=== PATIENT | female | born 1940 | race Hispanic/Latino ===

== ENCOUNTER 2017-10-08 13:29 | Inpatient (IN) | payer MEDICARE ==
[2017-10-08] MEDS ORDERED: Sodium Chloride 0.9% 500 ML IV STA (13:49)
[2017-10-08 14:20] LABS: VENOUS BLOOD GAS BASE EXCESS 6.9 mmol/L (0.0-2.0); VENOUS BLOOD GAS PCO2 49 mmHg (40-60); VENOUS BLOOD GAS PO2 14 mm/Hg (30-55); VENOUS BLOOD PH 7.43 (7.32-7.43)
--- NOTE | 2017-10-08 14:26 | ED PDOC ---
HPI: General Adult Time Seen by Provider: 10/08/17 13:42 Chief Complaint (Nursing): Altered Mental Status Chief Complaint (Provider): Fall/AMS History Per: EMS History/Exam Limitations: clinical condition, other (AMS) Onset/Duration Of Symptoms: Unknown Additional Complaint(s): Khushboo Yañez is a 77 year old female that was brought in by EMS after her neighbor found her on the floor of her home earlier today. It is unknown for how long the patient was on the floor for, but EMS states her neighbor estimated it to be about one day. Patient presents to ED covered in feces and urine, and is following some command; she is alert in the sense that she is responding to touch and pain, and moves all extremities at will, but patient is not explaining what happened because of altered mental status. Past Medical History Reviewed: Historical Data, Nursing Documentation, Vital Signs Vital Signs: Last Vital Signs Temp Pulse 115 H 10/08/17 13:34 Resp 16 10/08/17 13:34 BP 142/75 10/08/17 13:34 Pulse Ox 100 10/08/17 14:39 - Family History Family History: States: Unknown Family Hx - Immunization History Hx Tetanus Toxoid Vaccination: (cannot remember) - Home Medications Home Medications: Ambulatory Orders Medication Instructions Recorded Acetaminophen with Codeine 1 tab PO Q6H PRN #10 tab 08/22/16 [Tylenol with Codeine No. 3 300 mg-30 mg] - Allergies Allergies/Adverse Reactions: Allergies Allergy/AdvReac Type Severity Reaction Status Date / Time Unobtainable Allergy Verified 10/08/17 15:58 Review of Systems Review Of Systems: ROS cannot be obtained secondary to pt's inabilty to answer questions. Physical Exam - Reviewed Nursing Documentation Reviewed: Yes Vital Signs Reviewed: Yes - Physical Exam Appears: Positive for: Uncomfortable Head Exam: Positive for: ATRAUMATIC, NORMOCEPHALIC Skin: Positive for: Normal Color, Warm Eye Exam: Positive for: PERRL ENT: Negative for: Nasal Congestion Neck: Positive for: Supple, Trachea Midline. Negative for: Limited ROM, Pain On Movement Of Neck Cardiovascular/Chest: Positive for: Tachycardia (mild). Negative for: Murmur Respiratory: Positive for: Normal Breath Sounds. Negative for: Wheezing Gastrointestinal/Abdominal: Positive for: Soft. Negative for: Tenderness Back: Positive for: Normal Inspection Extremity: Positive for: Other (15 inch diameter stage 1 necrotic ulcer on right hip/buttock area, surrounded by erythema. Excoriation present to rectum area. Stage 1 ulcer also present to right lateral malleolus. ) Neurologic/Psych: Positive for: Motor/Sensory Deficits (moving all extremities on will). Negative for: Alert (Patient is awake but AMS.), Oriented, Facial Droop - Laboratory Results Result Diagrams: 10/08/17 14:18 10/08/17 14:18 Interpretation Of Abn Labs: 18 wbc, 50 bun, elevated lactate and cpk, urine wbc - ECG ECG: Positive for: Interpreted By Me, Viewed By Me ECG Rhythm: Positive for: Normal QRS, Sinus Tachycardia, Nonspecific Changes O2 Sat by Pulse Oximetry: 100 (RA) Pulse Ox Interpretation: Normal - Radiology X-Ray: Read By Radiologist X-Ray Interpretation: No Acute Disease - CT Scan/US ct Other Rad Studies (CT/US): Read By Radiologist Other Rad Interpretation: chronic, same as old - Progress ED Course And Treament: 1715: Stable. Alert. Spoke with Dr. Burns. Will admit tele. Dr. Brandt saw pt. and will consult. Spoke with ICU doctor Anne who saw pt. Does not want pt. in ICU. - Critical Care Total Time (In Min): 30 Documented Critical Care: Time excludes all time spent performint seperately billable procedures Medical Decision Making Medical Decision Making: Impression: AMS s/p fall Plan: * CT Head w/o contrast * CT C-Spine w/o contrast * Chest X-Ray * X-Ray Right Hip * EKG * VBG * Creatinine Phosphokinase * Troponin I * CBC * PTT * PT * Blood Culture * Urine Culture * Urinalysis * Farr Catheter * POC * NaCl 500 mLs at 500 mLs/hr * Reevaluation Scribe Attestation: Documented by Trisha Willard, acting as a scribe for Seven Beltre MD. Provider Scribe Attestation: All medical record entries made by the Scribe were at my direction and personally dictated by me. I have reviewed the chart and agree that the record accurately reflects my personal performance of the history, physical exam, medical decision making, and the department course for this patient. I have also personally directed, reviewed, and agree with the discharge instructions and disposition. Disposition - Clinical Impression Clinical Impression: Severe sepsis, UTI (urinary tract infection), Dehydration, Rhabdomyolysis, Ulcer, Cellulitis - Patient ED Disposition Is Patient to be Admitted: Yes - Disposition Disposition Time: 17:00 Condition: SERIOUS - Pt Status Changed To: Hospital Disposition Of: Inpatient - Admit Certification Admit to Inpatient:: After my assessment, the patient will require hospitalization for at least two midnights. This is because of the severity of symptoms shown, intensity of services needed, and/or the medical risk in this patient being treated as an outpatient. - POA Present On Arrival: Falls Or Trauma, Pressure Ulcer
[2017-10-08 14:31] LABS: BASO # 0.1 K/uL (0.0-0.2); BASO % 0.5 % (0.0-2.0); EOS % 0.1 % (0.0-4.0); HEMOGLOBIN 15.7 g/dL (12.0-16.0); LYMPH # 0.9 K/uL (1.0-4.3); LYMPH % 5.1 % (20.0-40.0); MEAN CELL VOLUME 92.6 fl (81.0-99.0); MEAN CORPUSCULAR HEMOGLOBIN 30.4 pg (27.0-31.0); MEAN CORPUSCULAR HGB CONC 32.9 g/dL (33.0-37.0); MEAN PLATELET VOLUME 9.2 fl (7.2-11.7); MONO # 1.5 K/uL (0.0-0.8); MONO % 8.2 % (0.0-10.0); NEUT # 15.7 K/uL (1.8-7.0); NEUT % 86.1 % (50.0-75.0); PLATELET COUNT 368 K/uL (130-400); RBC 5.17 Mil/uL (3.80-5.20); RED CELL DISTRIBUTION WIDTH 13.2 % (11.5-14.5); WHITE BLOOD COUNT 18.2 K/uL (4.8-10.8)
[2017-10-08 14:46] LABS: INR 1.1 (0.9-1.2); PARTIAL THROMBOPLASTIN TIME 29.8 Seconds (25.6-37.1); PROTHROMBIN TIME 12.4 Seconds (9.8-13.1)
[2017-10-08 15:05] LABS: ANISOCYTOSIS SLIGHT; BANDS 3 % (0-2); LYMPHOCYTE 5 % (20-50); MICROCYTOSIS SLIGHT; MONOCYTE 6 % (0-10); NEUTROPHIL 86 % (42-75); PLATELET ESTIMATE NORMAL (NORMAL); TOTAL CELLS COUNTED 100
[2017-10-08 15:06] LABS: LARGE PLATELETS PRESENT; OVALOCYTES SLIGHT; TEARDROP CELLS SLIGHT
--- NOTE | 2017-10-08 15:07 | CT ---
PROCEDURE: CT HEAD WITHOUT CONTRAST. HISTORY: Headache. COMPARISON: Comparison made with CT scan brain dated 08/22/2016. TECHNIQUE: Axial computed tomography images were obtained through the head/brain without intravenous contrast. Radiation dose: Total exam DLP = 891.4 mGy-cm. This CT exam was performed using one or more of the following dose reduction techniques: Automated exposure control, adjustment of the mA and/or kV according to patient size, and/or use of iterative reconstruction technique. FINDINGS: HEMORRHAGE: No acute parenchymal, subarachnoid or extra-axial hemorrhage. BRAIN: Moderate to fairly significant diffuse/ confluent chronic white matter ischemic changes are again seen extending peripherally into the deep and subcortical white matter both cerebral hemispheres. . Moderate to fairly significant central volume loss evidenced by slight disproportionate enlargement of the ventricles as compared the sulci. Mild vascular calcifications both carotid siphons VENTRICLES: No obstructive hydrocephalus. CALVARIUM: There are no acute calvarial fractures. PARANASAL SINUSES: Unremarkable as visualized. No significant inflammatory changes. MASTOID AIR CELLS: Sclerotic slightly underpneumatized right mastoid air complex compared to the left side. OTHER FINDINGS: None. IMPRESSION: No acute intracranial hemorrhage. Moderate to significant chronic white matter ischemic changes. Moderate to significant central volume loss.
[2017-10-08 15:14] LABS: ALB/GLOB RATIO 1.1 (1.0-2.1); BLOOD UREA NITROGEN 50 mg/dl (7-17); CALCIUM 10.9 mg/dL (8.4-10.2); GFR AFRICAN-AMERICAN > 60; GFR NON-AFRICAN AMERICAN > 60; URINE BACTERIA MANY (<OCC); URINE BILIRUBIN NEGATIVE (NEGATIVE); URINE BLOOD MODERATE (NEGATIVE); URINE CLARITY TURBID (Clear); URINE COLOR AMBER (YELLOW); URINE GLUCOSE (UA) NEG (Normal); URINE HYALINE CAST >20 /hpf (0-2); URINE LEUKOCYTE ESTERASE MOD Leu/uL (Negative); URINE NITRATE NEGATIVE (NEGATIVE); URINE PROTEIN 100 mg/dL (NEGATIVE)
[2017-10-08 15:15] LABS: ALT/SGPT 68 U/L (9-52); AST/SGOT 89 U/L (14-36)
--- NOTE | 2017-10-08 15:30 | CT ---
PROCEDURE: CT scan cervical spine dated 10/08/2017. HISTORY: Neck pain COMPARISON: None available. TECHNIQUE: Axial computed tomography images were obtained of the cervical spine without the use of intravenous contrast. Coronal and sagittal reformatted images were created and reviewed. Radiation dose: Total exam DLP = 310.43 mGy-cm. This CT exam was performed using one or more of the following dose reduction techniques: Automated exposure control, adjustment of the mA and/or kV according to patient size, and/or use of iterative reconstruction technique. FINDINGS: VERTEBRAE: No acute compression fractures no retropulsed fragments. Vertebral bodies exhibit normal stature and alignment. Facets normally aligned. . DISCS/SPINAL CANAL/NEURAL FORAMINA: Multilevel degenerative spondylosis. Changes include varying degrees of mild to significant disc space narrowing endplate eburnation with subchondral cystic changes and/or tiny Schmorl's nodes. Small broad-based disc ridge complexes are present at nearly every level and contiguous with hypertrophic uncovertebral joints most notably at the C5-C6 level bilaterally ; C6-C7 right greater than left ; to a lesser degree C4-C5 left greater than right ; and C3-C4 slightly more so on the left, where these changes result in foraminal stenosis indicated a above. There is also of fairly significant central canal stenosis at the C5-C6 and to a lesser degree C4-C5 and less so C6-C7 levels due to the aforementioned osteophytic ridge disc complexes. Consider followup MRI if further evaluation is required. PARASPINAL SOFT TISSUES: Unremarkable. OTHER FINDINGS: Lung apices clear. Note made of a small amount of air all within the right subclavian vein likely due to recent intravenous injection. Clinical correlation recommended IMPRESSION: No acute compression fractures no retropulsed fragments. Multilevel degenerative spondylosis with varying degrees of canal compromise and cord compression most notably affecting the C 5 C6 and to a lesser degree C4-C5 and C6-C7 levels. There are also variable on bilateral foraminal stenotic changes as detailed above. Consider followup MRI of the cervical spine if symptoms persist or neurologic deficit is present
--- NOTE | 2017-10-08 15:35 | RAD ---
HISTORY: dyspnea COMPARISON: No prior. FINDINGS: LUNGS: Mild bibasilar atelectasis or scarring. PLEURA: No significant pleural effusion identified, no pneumothorax apparent. CARDIOVASCULAR: Heart size within range of normal. Aorta ectatic and uncoiled. Prominent right and left main pulmonary arteries. OSSEOUS STRUCTURES: No significant abnormalities. VISUALIZED UPPER ABDOMEN: Normal. OTHER FINDINGS: None. IMPRESSION: Mild bibasilar atelectasis or scarring.
--- NOTE | 2017-10-08 15:45 | RAD ---
PROCEDURE: Right Hip Radiographs. HISTORY: necrosis area COMPARISON: None. FINDINGS: BONES: The pelvic ring is intact. There is no acute displaced fracture or bone destruction. Bone alignment is normal. There is diffuse bone demineralization. JOINTS: There is moderate degenerative osteoarthrosis in the right hip joint with severe reduced medial compartment joint space and marginal osteophytes. There is also mild degenerative osteoarthrosis in the left hip joint. SOFT TISSUES: Normal. OTHER FINDINGS: None. IMPRESSION: No acute displaced fracture or bone destruction. Please note occult fractures cannot be excluded on plain radiographs. If there is a persistent clinical concern, an MRI of the hip may be performed for further evaluation. Moderate degenerative osteoarthrosis in the right hip joint.
[2017-10-08] MEDS ORDERED: Sodium Chloride 0.9% 1,000 ML IV STA ×2 (16:07→18:04)
[2017-10-08] MEDS ORDERED: Ciprofloxacin 400mg/200ml D5W 400 MG/200 ML BAG IV STA (16:07)
[2017-10-08] MEDS ORDERED: Piperacillin/Tazobact 3.375 GM in Sodium Chloride 0.9% 100 ML IV STA (16:08)
[2017-10-08] MEDS ORDERED: Ciprofloxacin 400mg/200ml D5W 400 MG/200 ML BAG IVPB ONE (16:16)
--- NOTE | 2017-10-08 16:25 | CP.PCM.CON ---
History of Present Illness - History of Present Illness History of Present Illness: General surgery consult note for Dr. Migdalia Hall, PGY-1 Pt S & E at bedside. 77F w/PMH sig for hx fall in 2016 consulted for Right hip wound. Pt was brought into ED by EMS, found by neighbor on the floor of home on day of admission. Pt was down for unknow amount of time, estimation by neighbor is 1 day. Pt was covered in feces and urine upon admission to ED. Follows some commands and answering some simple questions, unable to obtain a history. ROS unobtainable due to AMS. PMH: Unobtainable/Unknown PSH: Unobtainable/Unknown All: Unobtainable/unknown SH: Unobtainable/unknown Review of Systems - Review of Systems Systems not reviewed;Unavailable: Altered Mental Status Past Patient History - Past Social History Smoking Status: Never Smoked - ENDOCRINE/METABOLIC Hx Diabetes Mellitus Type 2: Yes (pt thinks she may be) - PSYCHIATRIC Hx Substance Use: No Meds Allergies/Adverse Reactions: Allergies Allergy/AdvReac Type Severity Reaction Status Date / Time Unobtainable Allergy Verified 10/08/17 15:58 - Medications Medications: Current Medications Ciprofloxacin (Cipro 400mg/200ml Dsw) 400 mg in 200 mls @ 200 mls/hr IV STAT STA PRN Reason: Protocol Stop: 10/08/17 17:06 Sodium Chloride (Sodium Chloride 0.9%) 1,000 mls @ 1,000 mls/hr IV .Q1H STA Stop: 10/08/17 17:06 Vancomycin HCl 1,000 mg/ (Sodium Chloride) 250 mls @ 250 mls/hr IVPB STAT STA PRN Reason: Protocol Stop: 10/08/17 17:17 Piperacillin Sod/Tazobactam (Sod 3.375 gm/ Sodium Chloride) 100 mls @ 100 mls/ hr IV STAT STA PRN Reason: Protocol Stop: 10/08/17 17:07 Physical Exam - Constitutional Appears: Non-toxic, No Acute Distress, Confused - Head Exam Head Exam: ATRAUMATIC, NORMAL INSPECTION, NORMOCEPHALIC - Eye Exam Eye Exam: EOMI, Normal appearance - ENT Exam ENT Exam: Mucous Membranes Dry - Respiratory Exam Respiratory Exam: NORMAL BREATHING PATTERN - Cardiovascular Exam Cardiovascular Exam: Tachycardia, +S1, +S2 - GI/Abdominal Exam GI & Abdominal Exam: Soft. absent: Tenderness - Extremities Exam Extremities exam: Positive for: tenderness Additional comments: Large black eschar over lateral aspect of right hip with surrounding erythema, tender to palpation - Neurological Exam Additional comments: Altered mental status - Psychiatric Exam Additional comments: slow to answer questions, does not answer all questions - Skin Skin Exam: Dry, Intact, Normal Color, Warm Additional comments: see extremity exam for right hip skin findings Results - Vital Signs Recent Vital Signs: Last Vital Signs Temp Pulse 115 H 10/08/17 13:34 Resp 16 10/08/17 13:34 BP 142/75 10/08/17 13:34 Pulse Ox 100 10/08/17 14:39 - Labs Result Diagrams: 10/08/17 14:18 10/08/17 14:18 Labs: Laboratory Results - last 24 hr 10/08/17 10/08/17 10/08/17 14:10 14:14 14:18 WBC 18.2 H RBC 5.17 Hgb 15.7 Hct 47.9 H MCV 92.6 MCH 30.4 MCHC 32.9 L RDW 13.2 Plt Count 368 MPV 9.2 Neut % (Auto) 86.1 H Lymph % (Auto) 5.1 L Whitfield % (Auto) 8.2 Eos % (Auto) 0.1 Baso % (Auto) 0.5 Neut # 15.7 H Lymph # 0.9 L Whitfield # 1.5 H Eos # 0.0 Baso # 0.1 Neutrophils % (Manual) 86 H Band Neutrophils % 3 H Lymphocytes % (Manual) 5 L Monocytes % (Manual) 6 Platelet Estimate Normal Large Platelets Present Anisocytosis (manual) Slight Microcytosis (manual) Slight Tear Drop Cells Slight Ovalocytes Slight PT INR APTT pO2 14 L VBG pH 7.43 VBG pCO2 49 VBG HCO3 28.2 VBG Total CO2 34.0 H VBG O2 Sat (Calc) 24.6 L VBG Base Excess 6.9 H VBG Potassium 4.1 Sodium 142.0 Chloride 101.0 Glucose 157 H Lactate 2.5 H FiO2 21.0 Blood Gas Comments Lactate 2.5 Crit Value Called To tyra Lester Crit Value Called By 203 Crit Value Read Back Y Blood Gas Notified Time 1420 Potassium Carbon Dioxide Anion Gap BUN Creatinine Est GFR ( Amer) Est GFR (Non-Af Amer) POC Glucose (mg/dL) 91 Random Glucose Calcium Total Bilirubin AST ALT Alkaline Phosphatase Total Creatine Kinase Troponin I Total Protein Albumin Globulin Albumin/Globulin Ratio Venous Blood Potassium 4.1 Urine Color Urine Clarity Urine pH Ur Specific Bryant Urine Protein Urine Glucose (UA) Urine Ketones Urine Blood Urine Nitrate Urine Bilirubin Urine Urobilinogen Ur Leukocyte Esterase Urine RBC (Auto) Urine Microscopic WBC Urine Bacteria Hyaline Casts 10/08/17 10/08/17 10/08/17 14:18 14:18 14:18 WBC RBC Hgb Hct MCV MCH MCHC RDW Plt Count MPV Neut % (Auto) Lymph % (Auto) Whitfield % (Auto) Eos % (Auto) Baso % (Auto) Neut # Lymph # Whitfield # Eos # Baso # Neutrophils % (Manual) Band Neutrophils % Lymphocytes % (Manual) Monocytes % (Manual) Platelet Estimate Large Platelets Anisocytosis (manual) Microcytosis (manual) Tear Drop Cells Ovalocytes PT 12.4 INR 1.1 APTT 29.8 pO2 VBG pH VBG pCO2 VBG HCO3 VBG Total CO2 VBG O2 Sat (Calc) VBG Base Excess VBG Potassium Sodium 142 Chloride 102 Glucose Lactate FiO2 Blood Gas Comments Crit Value Called To Crit Value Called By Crit Value Read Back Blood Gas Notified Time Potassium 4.6 Carbon Dioxide 28 Anion Gap 17 BUN 50 H Creatinine 0.9 Est GFR ( Amer) > 60 Est GFR (Non-Af Amer) > 60 POC Glucose (mg/dL) Random Glucose 149 H Calcium 10.9 H Total Bilirubin 1.1 AST 89 H ALT 68 H Alkaline Phosphatase 105 Total Creatine Kinase 1327 H Troponin I 0.0220 Total Protein 7.5 Albumin 4.0 Globulin 3.6 Albumin/Globulin Ratio 1.1 Venous Blood Potassium Urine Color Elizabeth Urine Clarity Turbid Urine pH 5.0 Ur Specific Bryant 1.026 Urine Protein 100 Urine Glucose (UA) Neg Urine Ketones Trace Urine Blood Moderate Urine Nitrate Negative Urine Bilirubin Negative Urine Urobilinogen 2.0 H Ur Leukocyte Esterase Mod Urine RBC (Auto) 19 H Urine Microscopic WBC 32 H Urine Bacteria Many H Hyaline Casts >20 H Assessment & Plan - Assessment and Plan (Free Text) Assessment: 77F w/unknown PMH consulted for Right hip ulcer Plan: Pain mgmt Santyl to wound Will need to dry out before can be debrided Will follow Would recommend re-imaging due to pain DW attending Isabel, PGY-1 - Date & Time Date: 10/08/17 Time: 17:08
[2017-10-08 17:32] LABS: VENOUS BLOOD GAS PCO2 48 mmHg (40-60); VENOUS BLOOD GAS PO2 26 mm/Hg (30-55)
[2017-10-08] MEDS ORDERED: Piperacillin/Tazobact 3.375 gm Inj IVPB ONE (17:37)
--- NOTE | 2017-10-08 17:45 | CP.PCM.HP ---
History of Present Illness - History of Present Illness History of Present Illness: 77 yo female brought in by EMS after neighbor found her lying on the floor of her home covered with feces and urine. It was unknown how long she was in this state. Pt appeared confused and when asked she replied she didn't know what happened to her and how she got on the floor. Present on Admission - Present on Admission Any Indicators Present on Admission: No History of DVT/PE: No History of Uncontrolled Diabetes: No Urinary Catheter: Yes Decubitus Ulcer Present: Yes Review of Systems - Review of Systems Systems not reviewed;Unavailable: Altered Mental Status Past Patient History - Past Social History Smoking Status: Never Smoked - ENDOCRINE/METABOLIC Hx Diabetes Mellitus Type 2: Yes (pt thinks she may be) - PSYCHIATRIC Hx Substance Use: No Meds Allergies/Adverse Reactions: Allergies Allergy/AdvReac Type Severity Reaction Status Date / Time Unobtainable Allergy Verified 10/08/17 15:58 Physical Exam - Constitutional Appears: No Acute Distress, Confused - Head Exam Head Exam: ATRAUMATIC - Eye Exam Eye Exam: absent: Scleral icterus - ENT Exam ENT Exam: Mucous Membranes Dry - Neck Exam Neck exam: Negative for: Meningismus - Respiratory Exam Respiratory Exam: absent: Rhonchi, Wheezes, Respiratory Distress - Cardiovascular Exam Cardiovascular Exam: Tachycardia - GI/Abdominal Exam GI & Abdominal Exam: Soft. absent: Tenderness - Rectal Exam Rectal Exam: Deferred - Extremities Exam Extremities exam: Negative for: normal inspection (large black necrotic ulcer, about 10 inch, on right hip/buttock area; stage 1 ulcer on right lateral malleolus) - Back Exam Back exam: absent: tenderness - Neurological Exam Neurological exam: Altered Results - Vital Signs Recent Vital Signs: Last Vital Signs Temp Pulse 115 H 10/08/17 13:34 Resp 16 10/08/17 13:34 BP 142/75 10/08/17 13:34 Pulse Ox 100 10/08/17 17:19 - Labs Result Diagrams: 10/08/17 14:18 10/08/17 14:18 Labs: Laboratory Results - last 24 hr 10/08/17 10/08/17 10/08/17 14:10 14:14 14:18 WBC 18.2 H RBC 5.17 Hgb 15.7 Hct 47.9 H MCV 92.6 MCH 30.4 MCHC 32.9 L RDW 13.2 Plt Count 368 MPV 9.2 Neut % (Auto) 86.1 H Lymph % (Auto) 5.1 L Logan % (Auto) 8.2 Eos % (Auto) 0.1 Baso % (Auto) 0.5 Neut # 15.7 H Lymph # 0.9 L Logan # 1.5 H Eos # 0.0 Baso # 0.1 Neutrophils % (Manual) 86 H Band Neutrophils % 3 H Lymphocytes % (Manual) 5 L Monocytes % (Manual) 6 Platelet Estimate Normal Large Platelets Present Anisocytosis (manual) Slight Microcytosis (manual) Slight Tear Drop Cells Slight Ovalocytes Slight PT INR APTT pO2 14 L VBG pH 7.43 VBG pCO2 49 VBG HCO3 28.2 VBG Total CO2 34.0 H VBG O2 Sat (Calc) 24.6 L VBG Base Excess 6.9 H VBG Potassium 4.1 Sodium 142.0 Chloride 101.0 Glucose 157 H Lactate 2.5 H FiO2 21.0 Blood Gas Comments Lactate 2.5 Crit Value Called To tyra Lester Crit Value Called By 203 Crit Value Read Back Y Blood Gas Notified Time 1420 Potassium Carbon Dioxide Anion Gap BUN Creatinine Est GFR ( Amer) Est GFR (Non-Af Amer) POC Glucose (mg/dL) 91 Random Glucose Calcium Total Bilirubin AST ALT Alkaline Phosphatase Total Creatine Kinase Troponin I Total Protein Albumin Globulin Albumin/Globulin Ratio Venous Blood Potassium 4.1 Urine Color Urine Clarity Urine pH Ur Specific [place] Urine Protein Urine Glucose (UA) Urine Ketones Urine Blood Urine Nitrate Urine Bilirubin Urine Urobilinogen Ur Leukocyte Esterase Urine RBC (Auto) Urine Microscopic WBC Urine Bacteria Hyaline Casts 10/08/17 10/08/17 10/08/17 14:18 14:18 14:18 WBC RBC Hgb Hct MCV MCH MCHC RDW Plt Count MPV Neut % (Auto) Lymph % (Auto) Logan % (Auto) Eos % (Auto) Baso % (Auto) Neut # Lymph # Logan # Eos # Baso # Neutrophils % (Manual) Band Neutrophils % Lymphocytes % (Manual) Monocytes % (Manual) Platelet Estimate Large Platelets Anisocytosis (manual) Microcytosis (manual) Tear Drop Cells Ovalocytes PT 12.4 INR 1.1 APTT 29.8 pO2 VBG pH VBG pCO2 VBG HCO3 VBG Total CO2 VBG O2 Sat (Calc) VBG Base Excess VBG Potassium Sodium 142 Chloride 102 Glucose Lactate FiO2 Blood Gas Comments Crit Value Called To Crit Value Called By Crit Value Read Back Blood Gas Notified Time Potassium 4.6 Carbon Dioxide 28 Anion Gap 17 BUN 50 H Creatinine 0.9 Est GFR ( Amer) > 60 Est GFR (Non-Af Amer) > 60 POC Glucose (mg/dL) Random Glucose 149 H Calcium 10.9 H Total Bilirubin 1.1 AST 89 H ALT 68 H Alkaline Phosphatase 105 Total Creatine Kinase 1327 H Troponin I 0.0220 Total Protein 7.5 Albumin 4.0 Globulin 3.6 Albumin/Globulin Ratio 1.1 Venous Blood Potassium Urine Color Elizabeth Urine Clarity Turbid Urine pH 5.0 Ur Specific [place] 1.026 Urine Protein 100 Urine Glucose (UA) Neg Urine Ketones Trace Urine Blood Moderate Urine Nitrate Negative Urine Bilirubin Negative Urine Urobilinogen 2.0 H Ur Leukocyte Esterase Mod Urine RBC (Auto) 19 H Urine Microscopic WBC 32 H Urine Bacteria Many H Hyaline Casts >20 H 10/08/17 17:26 WBC RBC Hgb Hct MCV MCH MCHC RDW Plt Count MPV Neut % (Auto) Lymph % (Auto) Logan % (Auto) Eos % (Auto) Baso % (Auto) Neut # Lymph # Logan # Eos # Baso # Neutrophils % (Manual) Band Neutrophils % Lymphocytes % (Manual) Monocytes % (Manual) Platelet Estimate Large Platelets Anisocytosis (manual) Microcytosis (manual) Tear Drop Cells Ovalocytes PT INR APTT pO2 26 L VBG pH 7.40 VBG pCO2 48 VBG HCO3 26.7 VBG Total CO2 31.2 H VBG O2 Sat (Calc) 51.4 VBG Base Excess 4.0 H VBG Potassium 3.8 Sodium 142.0 Chloride 105.0 Glucose 154 H Lactate 2.7 H FiO2 21.0 Blood Gas Comments Lactate 2.7 Crit Value Called To tyra Lester Crit Value Called By 203 Crit Value Read Back Y Blood Gas Notified Time 1732 Potassium Carbon Dioxide Anion Gap BUN Creatinine Est GFR ( Amer) Est GFR (Non-Af Amer) POC Glucose (mg/dL) Random Glucose Calcium Total Bilirubin AST ALT Alkaline Phosphatase Total Creatine Kinase Troponin I Total Protein Albumin Globulin Albumin/Globulin Ratio Venous Blood Potassium 3.8 Urine Color Urine Clarity Urine pH Ur Specific [place] Urine Protein Urine Glucose (UA) Urine Ketones Urine Blood Urine Nitrate Urine Bilirubin Urine Urobilinogen Ur Leukocyte Esterase Urine RBC (Auto) Urine Microscopic WBC Urine Bacteria Hyaline Casts Assessment & Plan - Assessment and Plan (Free Text) Assessment: 77 yo female brought in by EMS after neighbor found her lying on the floor of her home covered with feces and urine. It was unknown how long she was in this state. Pt appeared confused and when asked she replied she didn't know what happened to her and how she got on the floor. 1. Sepsis blood culture surgical consult with Dr Brandt for possible debridement of necrotic ulcer on right hip/buttock continue Zosyn and Vanco monitor serum Lactate 2. Rhabdomyolysis continue IV hydration with NSS monitor serum CPK urinalysis 3. Altered Mental Status CT head: moderate chronic white matter ischemic changes neuro consult with Dr Sarah 4. DVT prophylaxis venodyne boots while in bed avoid anticoagulant because of history of possible head injury from fall
--- NOTE | 2017-10-08 20:19 | CT ---
EXAM: CT Pelvis Without Intravenous Contrast EXAM DATE/TIME: 10/08/2017 5:04 PM CLINICAL HISTORY: 77 years old, female; Injury or trauma; Fall; Initial encounter; Blunt trauma (contusions or hematomas); Right; Hip; Injury details: See phy. Doc. ; Additional info: Ulcer; R/O hip and buttox area FX TECHNIQUE: Axial computed tomography images of the pelvis without intravenous contrast. All CT scans at this facility use one or more dose reduction techniques, viz.: automated exposure control; ma/kV adjustment per patient size (including targeted exams where dose is matched to indication; i.e. head); or iterative reconstruction technique. Coronal and sagittal reformatted images were created and reviewed. COMPARISON: There are no prior studies for comparison. FINDINGS: Bones/joints: Bony structures are osteopenic. There degenerative changes. L4 vertebral body is incompletely imaged. L5 vertebral body is intact. There is L4-L5 and L5-S1 disc space disease with mild disc bulging. There is degenerative facet disease. There is age indeterminate deformity of the sacrum at the S3 level. No acute displaced sacral fractures are identified. No pelvic fractures are identified. There are no hip fractures. There are degenerative changes at both hips with joint space narrowing and osteophyte formation. Soft tissues: There is extensive bruising in the right buttock. Vasculature: There are vascular calcifications. Lymph nodes: There is no pathologic adenopathy. Bowel: There is a nonobstructive gas pattern in the pelvis. There is scattered diverticulosis Bladder: Bladder is almost empty with a Farr catheter. Reproductive: Uterus and adnexal structures are unremarkable. IMPRESSION: Soft tissue bruising in the right buttock, osteopenia and degenerative change, no acute fracture seen
--- NOTE | 2017-10-08 21:56 | CP.PCM.PN ---
Subjective - Date & Time of Evaluation Date of Evaluation: 10/08/17 Time of Evaluation: 21:52 - Subjective Subjective: I D NOTE HAVE REVIEWED LABS AND DISCUSSED c HOSPITALIST() START RX c CLINDAMYCIN/VANCOMYCIN/CIPRO Objective - Vital Signs/Intake and Output Vital Signs (last 24 hours): Temp Pulse Resp BP Pulse Ox 99.3 F 105 H 18 105/71 98 10/08/17 18:18 10/08/17 21:41 10/08/17 21:41 10/08/17 21:41 10/08/17 21:19 - Medications Medications: Current Medications Collagenase (Santyl) 1 applic TOP DAILY [facility] Docusate Sodium (Colace) 100 mg PO BID [facility] Ciprofloxacin (Cipro 400mg/200ml Dsw) 400 mg in 200 mls @ 200 mls/hr IVPB Q12 [facility] PRN Reason: Protocol Vancomycin HCl 1 gm/ Sodium (Chloride) 250 mls @ 166.667 mls/hr IVPB Q12 [facility] PRN Reason: Protocol Clindamycin Phosphate (Cleocin In Normal Saline) 600 mg in 50 mls @ 50 mls/hr IVPB Q8 [facility] PRN Reason: Protocol Pantoprazole Sodium (Protonix Ec Tab) 40 mg PO DAILY [facility] - Labs Labs: 10/08/17 14:18 10/08/17 14:18 PT 12.4 Seconds (9.8-13.1) 10/08/17 14:18 INR 1.1 (0.9-1.2) 10/08/17 14:18 APTT 29.8 Seconds (25.6-37.1) 10/08/17 14:18
[2017-10-09] MEDS: Ciprofloxacin 400mg/200ml D5W 400 MG/200 ML BAG IVPB SCH ×3 (00:17→23:40)
[2017-10-09] MEDS: Clindamycin 600mg/50ml NS 600 MG/50 ML BAG IVPB SCH ×3 (01:05→16:57)
[2017-10-09] MEDS ORDERED: Sodium Chloride 0.9% 1,000 ML IV SCH (01:15)
[2017-10-09 06:13] LABS: BASO # 0.1 K/uL (0.0-0.2); BASO % 0.5 % (0.0-2.0); EOS % 0.2 % (0.0-4.0); HEMOGLOBIN 13.3 g/dL (12.0-16.0); LYMPH % 6.9 % (20.0-40.0); MEAN CELL VOLUME 92.8 fl (81.0-99.0); MEAN CORPUSCULAR HEMOGLOBIN 30.2 pg (27.0-31.0); MEAN CORPUSCULAR HGB CONC 32.5 g/dL (33.0-37.0); MONO # 1.7 K/uL (0.0-0.8); MONO % 11.9 % (0.0-10.0); NEUT # 11.8 K/uL (1.8-7.0); NEUT % 80.5 % (50.0-75.0); NRBC % 0.1 % (0.0-0.0); RBC 4.42 Mil/uL (3.80-5.20); RED CELL DISTRIBUTION WIDTH 13.5 % (11.5-14.5); WHITE BLOOD COUNT 14.6 K/uL (4.8-10.8)
[2017-10-09 06:21] LABS: BLOOD UREA NITROGEN 46 mg/dl (7-17); CALCIUM 10.1 mg/dL (8.4-10.2); GFR AFRICAN-AMERICAN > 60; GFR NON-AFRICAN AMERICAN > 60
[2017-10-09] MEDS: Santyl Collagenase OINTMENT TOP SCH (10:39)
[2017-10-09 11:44] VITALS: BMI 24.9
--- NOTE | 2017-10-09 12:44 | CP.PCM.PN ---
Subjective - Date & Time of Evaluation Date of Evaluation: 10/09/17 Time of Evaluation: 12:44 - Subjective Subjective: Gen Surg: Dr Brandt Pt S&E. NAEO. Condition remains unchanged. Responds to simple questioning Objective - Vital Signs/Intake and Output Vital Signs (last 24 hours): Temp Pulse Resp BP Pulse Ox 98.8 F 106 H 18 118/80 100 10/09/17 08:07 10/09/17 09:00 10/09/17 08:07 10/09/17 08:07 10/09/17 08:07 - Medications Medications: Current Medications Collagenase (Santyl) 1 applic TOP DAILY [facility] Last Admin: 10/09/17 10:39 Dose: 1 applic Docusate Sodium (Colace) 100 mg PO BID [facility] Last Admin: 10/09/17 09:40 Dose: Not Given Enoxaparin Sodium (Lovenox) 40 mg SC DAILY [facility] PRN Reason: Protocol Ciprofloxacin (Cipro 400mg/200ml Dsw) 400 mg in 200 mls @ 200 mls/hr IVPB Q12 [facility] PRN Reason: Protocol Last Admin: 10/09/17 11:20 Dose: 200 mls/hr Vancomycin HCl 1 gm/ Sodium (Chloride) 250 mls @ 166.667 mls/hr IVPB Q12 [facility] PRN Reason: Protocol Last Admin: 10/08/17 22:13 Dose: Not Given Clindamycin Phosphate (Cleocin In Normal Saline) 600 mg in 50 mls @ 50 mls/hr IVPB Q8 [facility] PRN Reason: Protocol Last Admin: 10/09/17 09:38 Dose: 50 mls/hr Pantoprazole Sodium (Protonix Ec Tab) 40 mg PO DAILY [facility] - Labs Labs: 10/09/17 04:30 10/09/17 04:30 PT 12.4 Seconds (9.8-13.1) 10/08/17 14:18 INR 1.1 (0.9-1.2) 10/08/17 14:18 APTT 29.8 Seconds (25.6-37.1) 10/08/17 14:18 - Constitutional Appears: Non-toxic - ENT Exam ENT Exam: Mucous Membranes Moist - Respiratory Exam Respiratory Exam: absent: Accessory Muscle Use, Respiratory Distress - GI/Abdominal Exam GI & Abdominal Exam: Soft. absent: Distended - Extremities Exam Additional comments: Large black eschar over lateral aspect of right hip with surrounding erythema, tender to palpation - Neurological Exam Neurological Exam: Awake. absent: Oriented x3 Assessment and Plan - Assessment and Plan (Free Text) Assessment: 77F w/unknown PMH consulted for Right hip ulcer Plan: Continue Santyl to wound: Will need to dry out before can be debrided Will follow DW attending Antonia, PGY3
--- NOTE | 2017-10-09 12:49 | CARD ---
APPROVED REPORT EKG Measurement Heart [id number] ID [id number] <Conclusion> Sinus tachycardia Possible Left atrial enlargement Nonspecific ST abnormality Abnormal QRS-T angle, consider primary T wave abnormality Abnormal ECG
[2017-10-09] MEDS: Enoxaparin 40 mg Syringe SC SCH (13:18)
--- NOTE | 2017-10-09 15:57 | CP.PCM.CON ---
History of Present Illness - History of Present Illness History of Present Illness: Neurology Consult Note Mrs. Yañez is a 77-year-old woman who was brought in to the ED by EMS after her neighbor called when he found her on the floor of her home, confused, weak and covered in urine and feces. The patient continues to be encephalopathic. Her neighbor provided some history and believed that she was on the ground for at least 24 hours. Labs showed leukocytosis and elevated CK levels. She had an ulcer on her hip. When I saw the patient, she was aphasic, but moves all extremities. She followed simple commands, but did not offer much conversation. I attempted to call her brother, Dr. Kolton Wu, but the number that was provided was a non-working number. Review of Systems - Review of Systems Systems not reviewed;Unavailable: Altered Mental Status Past Patient History - Past Medical History & Family History Past Medical History?: No - Past Social History Smoking Status: unobtainab - ENDOCRINE/METABOLIC Hx Diabetes Mellitus Type 2: Yes (pt thinks she may be) - MUSCULOSKELETAL/RHEUMATOLOGICAL Hx Falls: Yes - PSYCHIATRIC Hx Substance Use: (unobtainable, pt lethargic) - SURGICAL HISTORY Hx Surgeries: No (unobtainable, pt lethargic) Meds Allergies/Adverse Reactions: Allergies Allergy/AdvReac Type Severity Reaction Status Date / Time Unobtainable Allergy Verified 10/08/17 15:58 - Medications Medications: Current Medications Collagenase (Santyl) 1 applic TOP DAILY [facility] Last Admin: 10/09/17 10:39 Dose: 1 applic Docusate Sodium (Colace) 100 mg PO BID [facility] Last Admin: 10/09/17 09:40 Dose: Not Given Enoxaparin Sodium (Lovenox) 40 mg SC DAILY [facility] PRN Reason: Protocol Last Admin: 10/09/17 13:18 Dose: 40 mg Ciprofloxacin (Cipro 400mg/200ml Dsw) 400 mg in 200 mls @ 200 mls/hr IVPB Q12 [facility] PRN Reason: Protocol Last Admin: 10/09/17 11:20 Dose: 200 mls/hr Vancomycin HCl 1 gm/ Sodium (Chloride) 250 mls @ 166.667 mls/hr IVPB Q12 [facility] PRN Reason: Protocol Last Admin: 10/09/17 13:17 Dose: 166.667 mls/hr Clindamycin Phosphate (Cleocin In Normal Saline) 600 mg in 50 mls @ 50 mls/hr IVPB Q8 [facility] PRN Reason: Protocol Last Admin: 10/09/17 09:38 Dose: 50 mls/hr Pantoprazole Sodium (Protonix Ec Tab) 40 mg PO DAILY [facility] Physical Exam - Neurological Exam Additional comments: Alert, awake, but not oriented to place or time. CN 2-12 intact and reactive. Does not provide answers verbally, but follows simple commands and moves all extremities with generalized weakness. Sensation is intact to painful stimulus with withdrawal throughout. Reflexes were normal. Gait could not be assessed. Results - Vital Signs Recent Vital Signs: Last Vital Signs Temp 98.2 F 10/09/17 12:52 Pulse 109 H 10/09/17 12:52 Resp 18 10/09/17 12:52 BP 92/63 L 10/09/17 12:52 Pulse Ox 97 10/09/17 12:52 - Labs Result Diagrams: 10/09/17 04:30 10/09/17 04:30 Labs: Laboratory Results - last 24 hr 10/08/17 10/09/17 10/09/17 17:26 04:30 04:30 WBC 14.6 H RBC 4.42 Hgb 13.3 D Hct 41.0 MCV 92.8 MCH 30.2 MCHC 32.5 L RDW 13.5 Plt Count 291 MPV 9.0 Neut % (Auto) 80.5 H Lymph % (Auto) 6.9 L [place] % (Auto) 11.9 H Eos % (Auto) 0.2 Baso % (Auto) 0.5 Neut # 11.8 H Lymph # 1.0 [place] # 1.7 H Eos # 0.0 Baso # 0.1 pO2 26 L VBG pH 7.40 VBG pCO2 48 VBG HCO3 26.7 VBG Total CO2 31.2 H VBG O2 Sat (Calc) 51.4 VBG Base Excess 4.0 H VBG Potassium 3.8 Sodium 142.0 146 Chloride 105.0 109 H Glucose 154 H Lactate 2.7 H FiO2 21.0 Blood Gas Comments Lactate 2.7 Crit Value Called To tyra Lester Crit Value Called By 203 Crit Value Read Back Y Blood Gas Notified Time 1732 Potassium 3.9 Carbon Dioxide 27 Anion Gap 14 BUN 46 H Creatinine 0.9 Est GFR ( Amer) > 60 Est GFR (Non-Af Amer) > 60 Random Glucose 133 H Lactic Acid Calcium 10.1 Total Creatine Kinase TSH 3rd Generation 2.41 Venous Blood Potassium 3.8 10/09/17 10/09/17 12:35 12:49 WBC RBC Hgb Hct MCV MCH MCHC RDW Plt Count MPV Neut % (Auto) Lymph % (Auto) [place] % (Auto) Eos % (Auto) Baso % (Auto) Neut # Lymph # [place] # Eos # Baso # pO2 VBG pH VBG pCO2 VBG HCO3 VBG Total CO2 VBG O2 Sat (Calc) VBG Base Excess VBG Potassium Sodium Chloride Glucose Lactate FiO2 Blood Gas Comments Crit Value Called To Crit Value Called By Crit Value Read Back Blood Gas Notified Time Potassium Carbon Dioxide Anion Gap BUN Creatinine Est GFR ( Amer) Est GFR (Non-Af Amer) Random Glucose Lactic Acid 1.5 Calcium Total Creatine Kinase 335 H TSH 3rd Generation Venous Blood Potassium - Imaging and Cardiology CT scan - head Status: Image reviewed by me, Report reviewed by me (Diffuse moderate to chronic white matter disease.) Assessment & Plan (1) Toxic metabolic encephalopathy Assessment and Plan: Likely due to sepsis and associated metabolic derangements; however, ischemic stroke, seizures or septic emboli cannot be ruled out. I recommend the followin. Telemetry 2. MRI of the brain without contrast 3. EEG awake and drowsy for one hour 4. Continue treating underlying infection 5. PT/OT eval 6. NPO till swallow eval 7. DVT Px with SCD 8. Fluids per primary team 9. Case management consult Thank you. Status: Acute Priority: High
[2017-10-09] MEDS: Pantoprazole 40 mg EC Tab PO SCH (16:58)
--- NOTE | 2017-10-09 19:20 | CP.PCM.PN ---
Subjective - Date & Time of Evaluation Date of Evaluation: 10/09/17 Time of Evaluation: 19:18 - Subjective Subjective: I D NOTE PATIENT CONTINUES TO BE CONFUSED/APHASIC WBC HAS IMPROVED BUT IS STILL HIGH HAVE D/MARIBEL VANCOMYCIN,REPLACED c ZOSYN HAS GRAM NEG RODS IN URINE,AWAITING ID CONTINUE CLINDAMYCIN/CIPRO WE AWAIT CULTURE RESULTS Objective - Vital Signs/Intake and Output Vital Signs (last 24 hours): Temp Pulse Resp BP Pulse Ox 97.8 F 118 H 20 126/70 98 10/09/17 19:06 10/09/17 19:06 10/09/17 19:06 10/09/17 19:06 10/09/17 19:06 Intake and Output: 10/09/17 10/10/17 18:59 06:59 Intake Total 1670 Output Total 300 Balance 1370 - Medications Medications: Current Medications Collagenase (Santyl) 1 applic TOP DAILY [facility] Last Admin: 10/09/17 10:39 Dose: 1 applic Dimethicone (Proshield Plus Skin Protectant) 1 applic TOP Q8 [facility] Docusate Sodium (Colace) 100 mg PO BID [facility] Last Admin: 10/09/17 09:40 Dose: Not Given Enoxaparin Sodium (Lovenox) 40 mg SC DAILY [facility] PRN Reason: Protocol Last Admin: 10/09/17 13:18 Dose: 40 mg Ciprofloxacin (Cipro 400mg/200ml Dsw) 400 mg in 200 mls @ 200 mls/hr IVPB Q12 [facility] PRN Reason: Protocol Last Admin: 10/09/17 11:20 Dose: 200 mls/hr Clindamycin Phosphate (Cleocin In Normal Saline) 600 mg in 50 mls @ 50 mls/hr IVPB Q8 [facility] PRN Reason: Protocol Last Admin: 10/09/17 16:57 Dose: 50 mls/hr Piperacillin Sod/Tazobactam (Sod 3.375 gm/ Sodium Chloride) 100 mls @ 100 mls/ hr IVPB Q8H [facility] PRN Reason: Protocol Pantoprazole Sodium (Protonix Ec Tab) 40 mg PO DAILY [facility] Last Admin: 10/09/17 16:58 Dose: 40 mg - Labs Labs: 10/09/17 04:30 10/09/17 04:30 PT 12.4 Seconds (9.8-13.1) 10/08/17 14:18 INR 1.1 (0.9-1.2) 10/08/17 14:18 APTT 29.8 Seconds (25.6-37.1) 10/08/17 14:18
[2017-10-09] MEDS: Piperacillin/Tazobact 3.375 GM in Sodium Chloride 0.9% 100 ML IVPB SCH (23:39)
[2017-10-10] MEDS: Proshield Plus GEL TOP SCH ×3 (02:12→17:36)
[2017-10-10] MEDS: Clindamycin 600mg/50ml NS 600 MG/50 ML BAG IVPB SCH ×3 (02:12→17:34)
[2017-10-10] MEDS: Piperacillin/Tazobact 3.375 GM in Sodium Chloride 0.9% 100 ML IVPB SCH ×2 (02:44→15:49)
--- NOTE | 2017-10-10 08:32 | CP.PCM.PN ---
Subjective - Date & Time of Evaluation Date of Evaluation: 10/10/17 Time of Evaluation: 07:00 - Subjective Subjective: General surgery progress note for Dr. Migdalia Hall, PGY-1 Pt S & E at bedside. Pt responding to some simple questions. Denies pain, N & V, F & C. Objective - Vital Signs/Intake and Output Vital Signs (last 24 hours): Temp Pulse Resp BP Pulse Ox 100.5 F H 96 H 20 118/72 98 10/10/17 08:19 10/10/17 08:19 10/10/17 08:19 10/10/17 08:19 10/10/17 08:19 Intake and Output: 10/10/17 10/10/17 06:59 18:59 Intake Total 520 Output Total 450 Balance 70 - Medications Medications: Current Medications Collagenase (Santyl) [address] [facility] Last Admin: 10/09/17 10:39 Dose: 1 applic Dimethicone (Proshield Plus Skin Protectant) [address] [facility] Last Admin: 10/10/17 02:12 Dose: 1 applic Docusate Sodium (Colace) [address] [facility] Last Admin: 10/09/17 19:21 Dose: Not Given Enoxaparin Sodium (Lovenox) 40 mg SC DAILY [facility] PRN Reason: Protocol Last Admin: 10/09/17 13:18 Dose: 40 mg Ciprofloxacin (Cipro 400mg/200ml Dsw) 400 mg in 200 mls @ 200 mls/hr IVPB Q12 [facility] PRN Reason: Protocol Last Admin: 10/09/17 23:40 Dose: 200 mls/hr Clindamycin Phosphate (Cleocin In Normal Saline) 600 mg in 50 mls @ 50 mls/hr IVPB Q8 [facility] PRN Reason: Protocol Last Admin: 10/10/17 02:12 Dose: 50 mls/hr Piperacillin Sod/Tazobactam (Sod 3.375 gm/ Sodium Chloride) 100 mls @ 100 mls/ hr IVPB Q8H [facility] PRN Reason: Protocol Last Admin: 10/10/17 02:44 Dose: 100 mls/hr Pantoprazole Sodium (Protonix Ec Tab) [address] [facility] Last Admin: 10/09/17 16:58 Dose: 40 mg - Labs Labs: 10/09/17 04:30 10/09/17 04:30 PT 12.4 Seconds (9.8-13.1) 10/08/17 14:18 INR 1.1 (0.9-1.2) 10/08/17 14:18 APTT 29.8 Seconds (25.6-37.1) 10/08/17 14:18 - Constitutional Appears: Non-toxic, No Acute Distress, Older Than Stated Age - Head Exam Head Exam: ATRAUMATIC, NORMAL INSPECTION, NORMOCEPHALIC - Eye Exam Eye Exam: EOMI, Normal appearance - ENT Exam ENT Exam: Mucous Membranes Moist, Normal Exam - Neck Exam Neck Exam: Full ROM, Normal Inspection - Respiratory Exam Respiratory Exam: NORMAL BREATHING PATTERN - Cardiovascular Exam Cardiovascular Exam: REGULAR RHYTHM, +S1, +S2 - GI/Abdominal Exam GI & Abdominal Exam: Soft. absent: Tenderness - Extremities Exam Extremities Exam: absent: Normal Inspection (Right hip with large eschar with dressing in place, minimal serosanguinous strike through, margins with erythema , non tender) - Neurological Exam Neurological Exam: Alert, Awake. absent: Oriented x3 - Psychiatric Exam Psychiatric exam: Normal Affect, Normal Mood (slow speech) - Skin Skin Exam: Dry, Normal Color, Warm. absent: Intact (see extremity exam for R hip findings) Assessment and Plan - Assessment and Plan (Free Text) Assessment: 77F w/unknow PMH with R hip ulcer Plan: Cont Santyl to wound Will monitor for possible debridement Will Follow Further mgmt as per primary team Will BHAVIK attending Isabel, PGY-1
[2017-10-10] MEDS: Enoxaparin 40 mg Syringe SC SCH (09:38)
[2017-10-10] MEDS: Santyl Collagenase OINTMENT TOP SCH (09:39)
[2017-10-10] MEDS: Pantoprazole 40 mg EC Tab PO SCH (09:39)
[2017-10-10 10:05] LABS: HEMOGLOBIN 13.7 g/dL (12.0-16.0); MEAN CELL VOLUME 94.5 fl (81.0-99.0); MEAN CORPUSCULAR HEMOGLOBIN 30.1 pg (27.0-31.0); MEAN CORPUSCULAR HGB CONC 31.8 g/dL (33.0-37.0); RBC 4.54 Mil/uL (3.80-5.20); RED CELL DISTRIBUTION WIDTH 13.5 % (11.5-14.5); WHITE BLOOD COUNT 13.9 K/uL (4.8-10.8)
[2017-10-10 10:29] LABS: BLOOD UREA NITROGEN 41 mg/dl (7-17); GFR AFRICAN-AMERICAN > 60; GFR NON-AFRICAN AMERICAN > 60
[2017-10-10 13:02] LABS: SQUAMOUS EPITHIAL 1 /hpf (0-5); URINE BACTERIA OCC (<OCC); URINE BILIRUBIN NEGATIVE (NEGATIVE); URINE BLOOD NEGATIVE (NEGATIVE); URINE CLARITY CLOUDY (Clear); URINE COLOR YELLOW (YELLOW); URINE GLUCOSE (UA) NEG (Normal); URINE LEUKOCYTE ESTERASE LARGE Leu/uL (Negative); URINE NITRATE NEGATIVE (NEGATIVE); URINE PROTEIN 30 mg/dL (NEGATIVE); URINE UROBILINOGEN 0.2-1.0 mg/dL (0.2-1.0)
--- NOTE | 2017-10-10 17:00 | CP.PCM.PN ---
Subjective - Date & Time of Evaluation Date of Evaluation: 10/10/17 Time of Evaluation: 09:30 - Subjective Subjective: Patient seen and examined at bedside with attending-Dr. Fox. Awake, alert, minimal verbal response when prompted. Follows minimal command to squeeze hands. Objective - Vital Signs/Intake and Output Vital Signs (last 24 hours): Temp Pulse Resp BP Pulse Ox 98.6 F 109 H 20 122/81 94 L 10/10/17 15:57 10/10/17 15:57 10/10/17 15:57 10/10/17 15:57 10/10/17 15:57 Intake and Output: 10/10/17 10/10/17 06:59 18:59 Intake Total 520 Output Total 450 Balance 70 - Medications Medications: Current Medications Collagenase (Santyl) 1 applic TOP DAILY [facility] Last Admin: 10/10/17 09:39 Dose: 1 applic Dimethicone (Proshield Plus Skin Protectant) 1 applic TOP Q8 [facility] Last Admin: 10/10/17 09:38 Dose: 1 applic Docusate Sodium (Colace) 100 mg PO BID [facility] Last Admin: 10/10/17 09:38 Dose: 100 mg Enoxaparin Sodium (Lovenox) 40 mg SC DAILY [facility] PRN Reason: Protocol Last Admin: 10/10/17 09:38 Dose: 40 mg Clindamycin Phosphate (Cleocin In Normal Saline) 600 mg in 50 mls @ 50 mls/hr IVPB Q8 [facility] PRN Reason: Protocol Last Admin: 10/10/17 09:37 Dose: 50 mls/hr Piperacillin Sod/Tazobactam (Sod 3.375 gm/ Sodium Chloride) 50 mls @ 50 mls/hr IVPB Q8H [facility] PRN Reason: Protocol Sodium Chloride (Sodium Chloride 0.9%) 1,000 mls @ 100 mls/hr IV .Q10H [facility] Stop: 10/11/17 12:59 Pantoprazole Sodium (Protonix Ec Tab) 40 mg PO DAILY [facility] Last Admin: 10/10/17 09:39 Dose: 40 mg - Labs Labs: 10/10/17 09:25 10/10/17 09:25 PT 12.4 Seconds (9.8-13.1) 10/08/17 14:18 INR 1.1 (0.9-1.2) 10/08/17 14:18 APTT 29.8 Seconds (25.6-37.1) 10/08/17 14:18 - Constitutional Appears: Unkempt, Confused, Cachectic, Chronically Ill - Head Exam Head Exam: ATRAUMATIC, NORMOCEPHALIC - ENT Exam ENT Exam: Mucous Membranes Moist - Neck Exam Neck Exam: Full ROM - Respiratory Exam Respiratory Exam: NORMAL BREATHING PATTERN - Cardiovascular Exam Cardiovascular Exam: REGULAR RHYTHM, +S1, +S2 - GI/Abdominal Exam GI & Abdominal Exam: Soft, Normal Bowel Sounds. absent: Tenderness - Extremities Exam Extremities Exam: Pedal Edema (trace bilaterally). absent: Calf Tenderness Additional comments: bilateral toenails with excessive length and soiled - Neurological Exam Neurological Exam: Alert, Awake - Psychiatric Exam Psychiatric exam: Flat Affect - Skin Skin Exam: Dry, Normal Color, Warm Assessment and Plan - Assessment and Plan (Free Text) Assessment: 77 yr old F admitted for sepsis and altered mental status. -fall precautions -continue IV antibiotics, IV fluids -ID on board-will follow recommendations, IV antibiotics have been adjusted -Blood culture positive for gram positive cocci -urine culture positive for gram negative rods > 100,000 -Neurology on board-will follow recommendations: MRI brain w/o contrast, EEG awake and drowsy x 1 hr, PT/OT -DVT prophylaxis: SCD's
[2017-10-10] MEDS: Sodium Chloride 0.9% 1,000 ML IV SCH (17:38)
[2017-10-10] MEDS: Piperacillin/Tazobact 3.375 GM in Sodium Chloride 0.9% 50 ML IVPB SCH (22:07)
[2017-10-11] MEDS: Sodium Chloride 0.9% 1,000 ML IV SCH (03:19)
[2017-10-11] MEDS: Clindamycin 600mg/50ml NS 600 MG/50 ML BAG IVPB SCH ×3 (03:20→16:43)
[2017-10-11] MEDS: Piperacillin/Tazobact 3.375 GM in Sodium Chloride 0.9% 50 ML IVPB SCH ×3 (03:20→18:16)
[2017-10-11] MEDS: Proshield Plus GEL TOP SCH ×3 (03:21→16:40)
--- NOTE | 2017-10-11 10:18 | CP.PCM.PN ---
Subjective - Date & Time of Evaluation Date of Evaluation: 10/11/17 Time of Evaluation: 10:16 - Subjective Subjective: Mr. Yañez was seen and examined at the bedside. She is alert, oriented to place ([facility]), but not to person and time. She denies any headache, blurred vision. She is able to follow commands such as field accommodation, finger to nose, and strength test. She is able to consume all her breakfast with assistance. There was no untoward events overnight. Objective - Vital Signs/Intake and Output Vital Signs (last 24 hours): Temp Pulse Resp BP Pulse Ox 98.2 F 112 H 20 113/81 97 10/11/17 08:00 10/11/17 08:00 10/11/17 08:00 10/11/17 08:00 10/11/17 08:00 - Medications Medications: Current Medications Collagenase (Santyl) 1 applic TOP DAILY [facility] Last Admin: 10/10/17 09:39 Dose: 1 applic Dimethicone (Proshield Plus Skin Protectant) 1 applic TOP Q8 [facility] Last Admin: 10/11/17 03:21 Dose: 1 applic Docusate Sodium (Colace) 100 mg PO BID [facility] Last Admin: 10/10/17 17:36 Dose: Not Given Enoxaparin Sodium (Lovenox) 40 mg SC DAILY [facility] PRN Reason: Protocol Last Admin: 10/10/17 09:38 Dose: 40 mg Clindamycin Phosphate (Cleocin In Normal Saline) 600 mg in 50 mls @ 50 mls/hr IVPB Q8 [facility] PRN Reason: Protocol Last Admin: 10/11/17 03:20 Dose: 50 mls/hr Piperacillin Sod/Tazobactam (Sod 3.375 gm/ Sodium Chloride) 50 mls @ 50 mls/hr IVPB Q8H [facility] PRN Reason: Protocol Last Admin: 10/11/17 03:20 Dose: 50 mls/hr Sodium Chloride (Sodium Chloride 0.9%) 1,000 mls @ 100 mls/hr IV .Q10H [facility] Stop: 10/11/17 12:59 Last Admin: 10/11/17 03:19 Dose: 100 mls/hr Pantoprazole Sodium (Protonix Ec Tab) 40 mg PO DAILY [facility] Last Admin: 10/10/17 09:39 Dose: 40 mg - Labs Labs: 10/10/17 09:25 10/10/17 09:25 PT 12.4 Seconds (9.8-13.1) 10/08/17 14:18 INR 1.1 (0.9-1.2) 10/08/17 14:18 APTT 29.8 Seconds (25.6-37.1) 10/08/17 14:18 - Constitutional Appears: No Acute Distress - Head Exam Head Exam: NORMAL INSPECTION - Neurological Exam Neurological Exam: Awake Neuro motor strength exam: Left Upper Extremity: 4, Right Upper Extremity: 4, Left Lower Extremity: 3, Right Lower Extremity: 3 Additional comments: She is alert, oriented to place ([facility]), but not to person and time. She denies any headache, blurred vision. She is able to follow commands such as field accommodation, finger to nose, and strength test. Sensation remains intact. Assessment and Plan (1) Toxic metabolic encephalopathy Assessment & Plan: Case discussed with Dr. Pitts, continue all current medical regimen. Treat any underlying infection. Pending results of MRI of the brain and EEG. Status: Acute
[2017-10-11] MEDS: Enoxaparin 40 mg Syringe SC SCH (11:10)
[2017-10-11] MEDS: Pantoprazole 40 mg EC Tab PO SCH (11:10)
[2017-10-11] MEDS: Santyl Collagenase OINTMENT TOP SCH (11:11)
--- NOTE | 2017-10-11 12:03 | CP.PCM.PN ---
Subjective - Date & Time of Evaluation Date of Evaluation: 10/11/17 Time of Evaluation: 12:00 - Subjective Subjective: General surgery progress note for Dr. Migdalia Hall, PGY-1 Pt S & E at bedside. Pt not answering simple questions at bedside. Awake. Resting comfortably in bed. No acute events overnight per nursing. Objective - Vital Signs/Intake and Output Vital Signs (last 24 hours): Temp Pulse Resp BP Pulse Ox 98.2 F 112 H 20 113/81 97 10/11/17 08:00 10/11/17 08:00 10/11/17 08:00 10/11/17 08:00 10/11/17 08:00 - Medications Medications: Current Medications Collagenase (Santyl) 1 applic TOP DAILY [facility] Last Admin: 10/11/17 11:11 Dose: 1 applic Dimethicone (Proshield Plus Skin Protectant) 1 applic TOP Q8 [facility] Last Admin: 10/11/17 11:10 Dose: 1 applic Docusate Sodium (Colace) 100 mg PO BID [facility] Last Admin: 10/11/17 11:10 Dose: 100 mg Enoxaparin Sodium (Lovenox) 40 mg SC DAILY [facility] PRN Reason: Protocol Last Admin: 10/11/17 11:10 Dose: 40 mg Clindamycin Phosphate (Cleocin In Normal Saline) 600 mg in 50 mls @ 50 mls/hr IVPB Q8 [facility] PRN Reason: Protocol Last Admin: 10/11/17 11:13 Dose: 50 mls/hr Piperacillin Sod/Tazobactam (Sod 3.375 gm/ Sodium Chloride) 50 mls @ 50 mls/hr IVPB Q8H [facility] PRN Reason: Protocol Last Admin: 10/11/17 11:13 Dose: 50 mls/hr Sodium Chloride (Sodium Chloride 0.9%) 1,000 mls @ 100 mls/hr IV .Q10H [facility] Stop: 10/11/17 12:59 Last Admin: 10/11/17 03:19 Dose: 100 mls/hr Pantoprazole Sodium (Protonix Ec Tab) 40 mg PO DAILY [facility] Last Admin: 10/11/17 11:10 Dose: 40 mg - Labs Labs: 10/10/17 09:25 10/10/17 09:25 PT 12.4 Seconds (9.8-13.1) 10/08/17 14:18 INR 1.1 (0.9-1.2) 10/08/17 14:18 APTT 29.8 Seconds (25.6-37.1) 10/08/17 14:18 - Constitutional Appears: Non-toxic, No Acute Distress - Head Exam Head Exam: ATRAUMATIC, NORMAL INSPECTION, NORMOCEPHALIC - Eye Exam Eye Exam: EOMI, Normal appearance - ENT Exam ENT Exam: Mucous Membranes Moist, Normal Exam - Neck Exam Neck Exam: Full ROM, Normal Inspection - Respiratory Exam Respiratory Exam: NORMAL BREATHING PATTERN - Cardiovascular Exam Cardiovascular Exam: REGULAR RHYTHM, +S1, +S2 - GI/Abdominal Exam GI & Abdominal Exam: Soft. absent: Tenderness - Neurological Exam Neurological Exam: Awake. absent: Alert, Oriented x3 - Psychiatric Exam Additional comments: not answering questions, just stares at me - Skin Skin Exam: Erythema (surrounding right hip eschar), Warm Additional comments: right hip with eschar covered by dressing with moderate amount of serous strike through tinged with blood, eschar now softer than before, continues to be non tender Assessment and Plan - Assessment and Plan (Free Text) Assessment: 77F w/R hip ulcer Plan: Cont Santyl to wound Monitor Possible debridement when ready Will Follow Further mgmt as per primary team Will BHAVIK attending Isabel, PGY-1
--- NOTE | 2017-10-11 12:18 | CP.PCM.PN ---
Subjective - Date & Time of Evaluation Date of Evaluation: 10/11/17 Time of Evaluation: 10:05 - Subjective Subjective: Patient was seen and examined at bedside with attending- Dr. Fox. Awake, alert, and in no acute distress. Objective - Vital Signs/Intake and Output Vital Signs (last 24 hours): Temp Pulse Resp BP Pulse Ox 98.2 F 112 H 20 113/81 97 10/11/17 08:00 10/11/17 08:00 10/11/17 08:00 10/11/17 08:00 10/11/17 08:00 - Medications Medications: Current Medications Collagenase (Santyl) 1 applic TOP DAILY [facility] Last Admin: 10/11/17 11:11 Dose: 1 applic Dimethicone (Proshield Plus Skin Protectant) 1 applic TOP Q8 [facility] Last Admin: 10/11/17 11:10 Dose: 1 applic Docusate Sodium (Colace) 100 mg PO BID [facility] Last Admin: 10/11/17 11:10 Dose: 100 mg Enoxaparin Sodium (Lovenox) 40 mg SC DAILY [facility] PRN Reason: Protocol Last Admin: 10/11/17 11:10 Dose: 40 mg Clindamycin Phosphate (Cleocin In Normal Saline) 600 mg in 50 mls @ 50 mls/hr IVPB Q8 [facility] PRN Reason: Protocol Last Admin: 10/11/17 11:13 Dose: 50 mls/hr Piperacillin Sod/Tazobactam (Sod 3.375 gm/ Sodium Chloride) 50 mls @ 50 mls/hr IVPB Q8H [facility] PRN Reason: Protocol Last Admin: 10/11/17 11:13 Dose: 50 mls/hr Sodium Chloride (Sodium Chloride 0.9%) 1,000 mls @ 100 mls/hr IV .Q10H [facility] Stop: 10/11/17 12:59 Last Admin: 10/11/17 03:19 Dose: 100 mls/hr Pantoprazole Sodium (Protonix Ec Tab) 40 mg PO DAILY [facility] Last Admin: 10/11/17 11:10 Dose: 40 mg - Labs Labs: 10/10/17 09:25 10/10/17 09:25 PT 12.4 Seconds (9.8-13.1) 10/08/17 14:18 INR 1.1 (0.9-1.2) 10/08/17 14:18 APTT 29.8 Seconds (25.6-37.1) 10/08/17 14:18 - Constitutional Appears: No Acute Distress, Unkempt, Cachectic, Chronically Ill - Head Exam Head Exam: ATRAUMATIC, NORMOCEPHALIC - Eye Exam Eye Exam: EOMI - ENT Exam ENT Exam: Mucous Membranes Moist - Neck Exam Neck Exam: Full ROM - Respiratory Exam Respiratory Exam: NORMAL BREATHING PATTERN - Cardiovascular Exam Cardiovascular Exam: REGULAR RHYTHM, +S1, +S2 - GI/Abdominal Exam GI & Abdominal Exam: Soft, Normal Bowel Sounds - Neurological Exam Neurological Exam: Alert, Awake - Psychiatric Exam Psychiatric exam: Flat Affect - Skin Skin Exam: Warm Additional comments: large right hip necrotic ulcer; stage 1 right lateral malleolus ulcer Assessment and Plan - Assessment and Plan (Free Text) Assessment: 77 yr old F admitted for sepsis and altered mental status. -transfer to med/surg -fall precautions -continue IV antibiotics, IV fluids -ID on board-will follow recommendations, IV antibiotics have been adjusted -Blood culture positive for gram positive cocci -urine culture positive for gram negative rods > 100,000 -Neurology on board-will follow recommendations: MRI brain w/o contrast, EEG awake and drowsy x 1 hr, PT/OT -wound care, podiatry on board: will follow recommendations -DVT prophylaxis: lovenox 40 mg SC daily
--- NOTE | 2017-10-11 12:46 | PCM.EEG ---
Electroencephalogram Report - Electroencephalogram Report Procedure Date: 10/11/17 Interpretation: Indication: Encephalopathy. Medications were reviewed. Technical: This is a digitally recorded electroencephalogram. The international 10-20 electrode placement system is used for scalp electrode placement. Eighteen channels of scalp EEG are recorded Another channel was used for for ECG. The data are stored digitally and reviewed in reformatted montages for optimal display. Diffuse Abnormality: No well formed alpha activity was seen. Mixed diffuse theta and delta activity was seen. Focal abnormality: Intermittent focal slowing was seen. Mainly over the Left temporal area. Impression: This EEG is abnormal. Diffuse slowing is seen, suggestive of a diffuse abnormality of the brain. Some focal slowing was seen, suggestive of a focal abnormality. Clinical correlation is needed.
--- NOTE | 2017-10-11 13:24 | MRI ---
PROCEDURE: MRI BRAIN WITHOUT CONTRAST HISTORY: encephalopathy COMPARISON: None. TECHNIQUE: Multiplanar, multisequence MR images of the brain were obtained without intravenous contrast enhancement. FINDINGS: HEMORRHAGE: None DWI: No evidence of an acute or early subacute infarction. BRAIN PARENCHYMA: No mass effect or edema. Severe chronic microvascular changes are seen in the periventricular white matter. There is also severe atrophy including the temporal horns. VENTRICLES: Enlarged ventricles including the temporal horns most consistent with atrophy. Possible normal pressure hydrocephalus CRANIUM: Unremarkable. ORBITS: Grossly unremarkable. PARANASAL SINUSES/MASTOIDS: Clear VASCULAR SYSTEM: Skull base flow voids intact. OTHER FINDINGS: None. IMPRESSION: Severe chronic microvascular changes in the periventricular white matter. Severe atrophy. Enlarged ventricles including the temporal horns most likely due to atrophy. NPH cannot be excluded
[2017-10-11] MEDS: Influenza Vaccine 18yr & older 0.5 ML/45 MCG SYR IM ONE ×2 (18:17→18:20)
[2017-10-11] MEDS ORDERED: Pneumococcal 23-Valent Vaccine IM ONE (20:00)
[2017-10-12] MEDS: Proshield Plus GEL TOP SCH ×3 (01:04→18:51)
[2017-10-12] MEDS: Clindamycin 600mg/50ml NS 600 MG/50 ML BAG IVPB SCH ×3 (01:05→17:26)
[2017-10-12] MEDS: Piperacillin/Tazobact 3.375 GM in Sodium Chloride 0.9% 50 ML IVPB SCH ×3 (02:29→18:53)
--- NOTE | 2017-10-12 08:07 | CP.PCM.PN ---
Subjective - Date & Time of Evaluation Date of Evaluation: 10/12/17 Time of Evaluation: 07:50 - Subjective Subjective: General Surgery Dr. Brandt Pt S&E @bedside. ZHENO. Pt w/ no complaints. tolerating diet. Objective - Vital Signs/Intake and Output Vital Signs (last 24 hours): Temp Pulse Resp BP Pulse Ox 99.1 F 100 H 18 136/75 95 10/12/17 00:24 10/12/17 00:24 10/12/17 00:24 10/12/17 00:24 10/12/17 00:24 - Medications Medications: Current Medications Collagenase (Santyl) 1 applic TOP DAILY [facility] Last Admin: 10/11/17 11:11 Dose: 1 applic Dimethicone (Proshield Plus Skin Protectant) 1 applic TOP Q8 [facility] Last Admin: 10/12/17 01:04 Dose: 1 applic Docusate Sodium (Colace) 100 mg PO BID [facility] Last Admin: 10/11/17 16:39 Dose: 100 mg Enoxaparin Sodium (Lovenox) 40 mg SC DAILY [facility] PRN Reason: Protocol Last Admin: 10/11/17 11:10 Dose: 40 mg Clindamycin Phosphate (Cleocin In Normal Saline) 600 mg in 50 mls @ 50 mls/hr IVPB Q8 [facility] PRN Reason: Protocol Last Admin: 10/12/17 01:05 Dose: 50 mls/hr Piperacillin Sod/Tazobactam (Sod 3.375 gm/ Sodium Chloride) 50 mls @ 50 mls/hr IVPB Q8H [facility] PRN Reason: Protocol Last Admin: 10/12/17 02:29 Dose: 50 mls/hr Pantoprazole Sodium (Protonix Ec Tab) 40 mg PO DAILY [facility] Last Admin: 10/11/17 11:10 Dose: 40 mg - Labs Labs: 10/10/17 09:25 10/10/17 09:25 PT 12.4 Seconds (9.8-13.1) 10/08/17 14:18 INR 1.1 (0.9-1.2) 10/08/17 14:18 APTT 29.8 Seconds (25.6-37.1) 10/08/17 14:18 - Constitutional Appears: Non-toxic, No Acute Distress - Head Exam Head Exam: NORMAL INSPECTION - Eye Exam Eye Exam: Normal appearance - ENT Exam ENT Exam: Mucous Membranes Moist - Respiratory Exam Respiratory Exam: NORMAL BREATHING PATTERN. absent: Accessory Muscle Use, Respiratory Distress - GI/Abdominal Exam GI & Abdominal Exam: Soft. absent: Tenderness - Extremities Exam Additional comments: R hip w/ unstageable pressure ulcer covered by black eschar. surrounding tissue boggy and erythematous. scant drainage present. dressing c/d/i - Neurological Exam Neurological Exam: Alert, Awake - Psychiatric Exam Psychiatric exam: Normal Affect, Normal Mood - Skin Skin Exam: Warm Assessment and Plan - Assessment and Plan (Free Text) Assessment: 77 y/o F w/ sepsis and unstageable R hip pressure ulcer - monitor vitals - repeat CBC - will need debridement - cont IV Abx per ID - cont medical management - GI/DVT PPx Pt discussed w/ Dr. Rikki Diaz DO PGY2
[2017-10-12 09:00] LABS: MEAN CELL VOLUME 92.6 fl (81.0-99.0); MEAN CORPUSCULAR HEMOGLOBIN 30.5 pg (27.0-31.0); MEAN CORPUSCULAR HGB CONC 32.9 g/dL (33.0-37.0); RBC 3.94 Mil/uL (3.80-5.20); RED CELL DISTRIBUTION WIDTH 13.4 % (11.5-14.5); WHITE BLOOD COUNT 9.8 K/uL (4.8-10.8)
[2017-10-12 09:07] LABS: ALB/GLOB RATIO 0.9 (1.0-2.1); ALBUMIN 2.5 g/dL (3.5-5.0); ALT/SGPT 47 U/L (9-52); AST/SGOT 31 U/L (14-36); BLOOD UREA NITROGEN 29 mg/dl (7-17); CALCIUM 9.3 mg/dL (8.4-10.2); GFR AFRICAN-AMERICAN > 60; GFR NON-AFRICAN AMERICAN > 60
--- NOTE | 2017-10-12 09:33 | CP.PCM.PN ---
Subjective - Date & Time of Evaluation Date of Evaluation: 10/12/17 Time of Evaluation: 09:31 - Subjective Subjective: Ms. Yañez was seen and examined at the bedside. She is alert,oriented to place ([facility]), but not person or time. She is able to deny any headache and follow simple command such as field accommodation and raising her bilateral upper extremities. The MRI of the brain showed severe chronic microvascular changes in the periventricular white matter. Severe atrophy. Enlarged ventricles including the temporal horns most likely due to atrophy.NPH cannot be excluded. EEG showed diffused abnormality of the brain.There was no untoward events overnight. Objective - Vital Signs/Intake and Output Vital Signs (last 24 hours): Temp Pulse Resp BP Pulse Ox 98.7 F 97 H 18 116/67 96 10/12/17 08:18 10/12/17 08:18 10/12/17 08:18 10/12/17 08:18 10/12/17 08:18 - Medications Medications: Current Medications Collagenase (Santyl) 1 applic TOP DAILY [facility] Last Admin: 10/11/17 11:11 Dose: 1 applic Dimethicone (Proshield Plus Skin Protectant) 1 applic TOP Q8 [facility] Last Admin: 10/12/17 01:04 Dose: 1 applic Docusate Sodium (Colace) 100 mg PO BID [facility] Last Admin: 10/11/17 16:39 Dose: 100 mg Enoxaparin Sodium (Lovenox) 40 mg SC DAILY [facility] PRN Reason: Protocol Last Admin: 10/11/17 11:10 Dose: 40 mg Clindamycin Phosphate (Cleocin In Normal Saline) 600 mg in 50 mls @ 50 mls/hr IVPB Q8 [facility] PRN Reason: Protocol Last Admin: 10/12/17 01:05 Dose: 50 mls/hr Piperacillin Sod/Tazobactam (Sod 3.375 gm/ Sodium Chloride) 50 mls @ 50 mls/hr IVPB Q8H [facility] PRN Reason: Protocol Last Admin: 10/12/17 02:29 Dose: 50 mls/hr Pantoprazole Sodium (Protonix Ec Tab) 40 mg PO DAILY [facility] Last Admin: 10/11/17 11:10 Dose: 40 mg - Labs Labs: 10/12/17 08:40 10/12/17 08:40 PT 12.4 Seconds (9.8-13.1) 10/08/17 14:18 INR 1.1 (0.9-1.2) 10/08/17 14:18 APTT 29.8 Seconds (25.6-37.1) 10/08/17 14:18 - Constitutional Appears: No Acute Distress, Unkempt - Neurological Exam Neurological Exam: Awake Neuro motor strength exam: Left Upper Extremity: 4, Right Upper Extremity: 4, Left Lower Extremity: 2/1, Right Lower Extremity: 2/1 Additional comments: She has episode of confusion and follow some simple commands. Assessment and Plan (1) Toxic metabolic encephalopathy Assessment & Plan: Case discussed with Dr. Pitts, continue all current medical regimen. Recommend consult to neurosurgery regarding the findings in the MRI of the brain. Status: Acute
[2017-10-12] MEDS: Enoxaparin 40 mg Syringe SC SCH (09:48)
[2017-10-12] MEDS: Pantoprazole 40 mg EC Tab PO SCH (09:49)
[2017-10-12] MEDS: Santyl Collagenase OINTMENT TOP SCH (09:50)
--- NOTE | 2017-10-12 11:23 | CP.PCM.PN ---
Subjective - Date & Time of Evaluation Date of Evaluation: 10/12/17 Time of Evaluation: 11:20 - Subjective Subjective: Pt admitted with sepsis MRI consistant with NPH Pt needs to be well over her current medical problems Suyggest sending her to office after d/c from this problem PHARMACIST shunting is contraindicated whilept has active infection or necrotic skin wounds Objective - Vital Signs/Intake and Output Vital Signs (last 24 hours): Temp Pulse Resp BP Pulse Ox 98.7 F 97 H 18 116/67 96 10/12/17 08:18 10/12/17 08:18 10/12/17 08:18 10/12/17 08:18 10/12/17 08:18 - Medications Medications: Current Medications Collagenase (Santyl) 1 applic TOP DAILY [facility] Last Admin: 10/12/17 09:50 Dose: 1 applic Dimethicone (Proshield Plus Skin Protectant) 1 applic TOP Q8 [facility] Last Admin: 10/12/17 09:49 Dose: 1 applic Docusate Sodium (Colace) 100 mg PO BID [facility] Last Admin: 10/12/17 09:49 Dose: 100 mg Enoxaparin Sodium (Lovenox) 40 mg SC DAILY [facility] PRN Reason: Protocol Last Admin: 10/12/17 09:48 Dose: 40 mg Clindamycin Phosphate (Cleocin In Normal Saline) 600 mg in 50 mls @ 50 mls/hr IVPB Q8 [facility] PRN Reason: Protocol Last Admin: 10/12/17 09:51 Dose: 50 mls/hr Piperacillin Sod/Tazobactam (Sod 3.375 gm/ Sodium Chloride) 50 mls @ 50 mls/hr IVPB Q8H [facility] PRN Reason: Protocol Last Admin: 10/12/17 02:29 Dose: 50 mls/hr Pantoprazole Sodium (Protonix Ec Tab) 40 mg PO DAILY [facility] Last Admin: 10/12/17 09:49 Dose: 40 mg - Labs Labs: 10/12/17 08:40 10/12/17 08:40 PT 12.4 Seconds (9.8-13.1) 10/08/17 14:18 INR 1.1 (0.9-1.2) 10/08/17 14:18 APTT 29.8 Seconds (25.6-37.1) 10/08/17 14:18
--- NOTE | 2017-10-12 11:38 | CP.PCM.PN ---
Subjective - Date & Time of Evaluation Date of Evaluation: 10/12/17 Time of Evaluation: 11:37 - Subjective Subjective: Patient seen and examined at bedside. Patient still continues to have altered mental status, however has improved. She was able to recognize Dr. Fox at bedside. Does not appear to be in any acute distress. Objective - Vital Signs/Intake and Output Vital Signs (last 24 hours): Temp Pulse Resp BP Pulse Ox 98.7 F 97 H 18 116/67 96 10/12/17 08:18 10/12/17 08:18 10/12/17 08:18 10/12/17 08:18 10/12/17 08:18 - Medications Medications: Current Medications Collagenase (Santyl) 1 applic TOP DAILY [facility] Last Admin: 10/12/17 09:50 Dose: 1 applic Dimethicone (Proshield Plus Skin Protectant) 1 applic TOP Q8 [facility] Last Admin: 10/12/17 09:49 Dose: 1 applic Docusate Sodium (Colace) 100 mg PO BID [facility] Last Admin: 10/12/17 09:49 Dose: 100 mg Enoxaparin Sodium (Lovenox) 40 mg SC DAILY [facility] PRN Reason: Protocol Last Admin: 10/12/17 09:48 Dose: 40 mg Clindamycin Phosphate (Cleocin In Normal Saline) 600 mg in 50 mls @ 50 mls/hr IVPB Q8 [facility] PRN Reason: Protocol Last Admin: 10/12/17 09:51 Dose: 50 mls/hr Piperacillin Sod/Tazobactam (Sod 3.375 gm/ Sodium Chloride) 50 mls @ 50 mls/hr IVPB Q8H [facility] PRN Reason: Protocol Last Admin: 10/12/17 02:29 Dose: 50 mls/hr Pantoprazole Sodium (Protonix Ec Tab) 40 mg PO DAILY [facility] Last Admin: 10/12/17 09:49 Dose: 40 mg - Labs Labs: 10/12/17 08:40 10/12/17 08:40 PT 12.4 Seconds (9.8-13.1) 10/08/17 14:18 INR 1.1 (0.9-1.2) 10/08/17 14:18 APTT 29.8 Seconds (25.6-37.1) 10/08/17 14:18 - Constitutional Appears: No Acute Distress, Unkempt - Head Exam Head Exam: NORMAL INSPECTION - Eye Exam Eye Exam: EOMI - ENT Exam ENT Exam: Mucous Membranes Moist - Respiratory Exam Respiratory Exam: Clear to Ausculation Bilateral, NORMAL BREATHING PATTERN. absent: Rhonchi, Wheezes - Cardiovascular Exam Cardiovascular Exam: REGULAR RHYTHM, +S1, +S2 - GI/Abdominal Exam GI & Abdominal Exam: Soft, Normal Bowel Sounds. absent: Tenderness - Neurological Exam Neurological Exam: Alert, Awake - Skin Additional comments: Large right necrotic ulcer; Stage 1 right lateral malleolus ulcer Assessment and Plan - Assessment and Plan (Free Text) Assessment: 77 yr old F admitted for sepsis and altered mental status. 1) Altered mental status: Unspecified - Neuro on board - MRI brain showed severe chronic microvasular changes in periventricular matter. Severe atrophy - Enlarged ventricles including the temporal horns most likely do to atrophy - EEG showed diffused abnormality of brain - Neurosurg recommends patient follow up outpatient. [employer]ATOR shunting C/I since patient has active infection or necrotic skin wounds. 2) Sepsis -continue IV antibiotics, IV fluids -ID consult appreciated -Blood culture positive for gram positive cocci -urine culture positive for gram negative rods > 100,000 -wound care, podiatry on board: will follow recommendations - Will require debridement. Surgery consult appreciated 3) DVT prophylaxis -DVT prophylaxis: lovenox 40 mg SC daily
--- NOTE | 2017-10-12 12:59 | PCM.PROC ---
Incision and Drainage - Time Out Time Out: Side verified, Site verified, Patient ID confirmed - Procedure Procedure-Incision & Drainage: escharotomy, and debridement of R hip pressure ulcer - Consent obtained Consent obtained: Written - Performed by Performed by: Mid-level Provider - Indications Indications: Other (unstageable pressure ulcer, erythema, induration, eschar) - Contraindications Contraindications: None - Location Location: Right, Thigh (deep) - Dimensions Dimensions Length cm: 10 Dimensions width cm: 8 - Procedure Procedure: cm incision (5x3), # scalpel used (10), Explored for loculations, Packed with sterile gauze (wet-to-dry dressing) - Post-procedure Post procedure: Dressed - Complications Complications: None - Patient tolerated procedure Patient tolerated procedure: Well
[2017-10-13] MEDS: Clindamycin 600mg/50ml NS 600 MG/50 ML BAG IVPB SCH ×3 (00:18→16:41)
[2017-10-13] MEDS: Proshield Plus GEL TOP SCH ×3 (01:00→16:43)
[2017-10-13] MEDS: Piperacillin/Tazobact 3.375 GM in Sodium Chloride 0.9% 50 ML IVPB SCH ×3 (03:04→19:13)
[2017-10-13 06:29] LABS: HEMOGLOBIN 11.5 g/dL (12.0-16.0); MEAN CELL VOLUME 93.4 fl (81.0-99.0); MEAN CORPUSCULAR HEMOGLOBIN 31.1 pg (27.0-31.0); MEAN CORPUSCULAR HGB CONC 33.4 g/dL (33.0-37.0); RBC 3.68 Mil/uL (3.80-5.20); RED CELL DISTRIBUTION WIDTH 13.4 % (11.5-14.5); WHITE BLOOD COUNT 9.4 K/uL (4.8-10.8)
[2017-10-13 06:38] LABS: BLOOD UREA NITROGEN 29 mg/dl (7-17); CALCIUM 9.1 mg/dL (8.4-10.2); GFR AFRICAN-AMERICAN > 60; GFR NON-AFRICAN AMERICAN > 60
--- NOTE | 2017-10-13 07:14 | CP.PCM.PN ---
Subjective - Date & Time of Evaluation Date of Evaluation: 10/13/17 Time of Evaluation: 07:13 - Subjective Subjective: General Surgery Progress Note - Dr. Brandt Patient seen and examined at bedside this morning. Denies any acute events overnight. Reports mild-moderate pain in the right hip, well controlled by medications. Dressing remains clean dry and intact at present. Denies F/C/N/V/CP /SOB Objective - Vital Signs/Intake and Output Vital Signs (last 24 hours): Temp Pulse Resp BP Pulse Ox 98.0 F 95 H 18 129/77 95 10/12/17 23:55 10/12/17 23:55 10/12/17 23:55 10/12/17 23:55 10/12/17 23:55 - Medications Medications: Current Medications Collagenase (Santyl) 1 applic TOP DAILY [facility] Last Admin: 10/12/17 09:50 Dose: 1 applic Dimethicone (Proshield Plus Skin Protectant) 1 applic TOP Q8 [facility] Last Admin: 10/13/17 01:00 Dose: 1 applic Docusate Sodium (Colace) 100 mg PO BID [facility] Last Admin: 10/12/17 17:25 Dose: Not Given Enoxaparin Sodium (Lovenox) 40 mg SC DAILY [facility] PRN Reason: Protocol Last Admin: 10/12/17 09:48 Dose: 40 mg Clindamycin Phosphate (Cleocin In Normal Saline) 600 mg in 50 mls @ 50 mls/hr IVPB Q8 [facility] PRN Reason: Protocol Last Admin: 10/13/17 00:18 Dose: 50 mls/hr Piperacillin Sod/Tazobactam (Sod 3.375 gm/ Sodium Chloride) 50 mls @ 50 mls/hr IVPB Q8H [facility] PRN Reason: Protocol Last Admin: 10/13/17 03:04 Dose: 50 mls/hr Pantoprazole Sodium (Protonix Ec Tab) 40 mg PO DAILY [facility] Last Admin: 10/12/17 09:49 Dose: 40 mg - Labs Labs: 10/13/17 05:30 10/13/17 05:30 PT 12.4 Seconds (9.8-13.1) 10/08/17 14:18 INR 1.1 (0.9-1.2) 10/08/17 14:18 APTT 29.8 Seconds (25.6-37.1) 10/08/17 14:18 - Constitutional Appears: Well, Non-toxic, No Acute Distress - Skin Additional comments: Allevyn dressing clean, dry and intact to R hip. R hip w/ unstageable pressure ulcer with black eschar noted to periphery and central 5cm x 3cm opening exhibiting mostly fibrotic subcutaneous tissue. Pura wound tissue is boggy and mildly erythematous. Assessment and Plan - Assessment and Plan (Free Text) Assessment: 77 y/o female admitted for sepsis with unstageable R hip pressure ulcer - monitor VS - repeat CBC - will need further bedside debridement as eschar thickens and becomes more friable - cont IV Abx per ID - cont medical management - GI/DVT PPx Discussed patient with Dr. Brandt
[2017-10-13] MEDS: Pantoprazole 40 mg EC Tab PO SCH (08:55)
[2017-10-13] MEDS: Enoxaparin 40 mg Syringe SC SCH (08:55)
[2017-10-13] MEDS: Lactobacillus Acidophilus 500 MU Cap PO SCH ×2 (09:35→16:42)
[2017-10-13] MEDS: Potassium Chloride 20 mEq ER Tab PO SCH (09:45)
[2017-10-13] MEDS: Dextrose 5%/0.45% NS 1,000 ML IV SCH (10:49)
--- NOTE | 2017-10-13 11:04 | CP.PCM.PN ---
Subjective - Date & Time of Evaluation Date of Evaluation: 10/13/17 Time of Evaluation: 11:02 - Subjective Subjective: Ms. Yañez was seen and examined at the bedside. She is awake, but with episode of confusion. She is not consistent in answering and following commands. She is dependent to others for her ADL's. There was no untoward events overnight. Objective - Vital Signs/Intake and Output Vital Signs (last 24 hours): Temp Pulse Resp BP Pulse Ox 98.2 F 74 18 143/75 97 10/13/17 08:32 10/13/17 08:32 10/13/17 08:32 10/13/17 08:32 10/13/17 08:32 - Medications Medications: Current Medications Collagenase (Santyl) 1 applic TOP DAILY [facility] Last Admin: 10/12/17 09:50 Dose: 1 applic Dimethicone (Proshield Plus Skin Protectant) 1 applic TOP Q8 [facility] Last Admin: 10/13/17 08:56 Dose: 1 applic Docusate Sodium (Colace) 100 mg PO BID [facility] Last Admin: 10/13/17 08:55 Dose: 100 mg Enoxaparin Sodium (Lovenox) 40 mg SC DAILY [facility] PRN Reason: Protocol Last Admin: 10/13/17 08:55 Dose: 40 mg Clindamycin Phosphate (Cleocin In Normal Saline) 600 mg in 50 mls @ 50 mls/hr IVPB Q8 [facility] PRN Reason: Protocol Last Admin: 10/13/17 08:55 Dose: 50 mls/hr Piperacillin Sod/Tazobactam (Sod 3.375 gm/ Sodium Chloride) 50 mls @ 50 mls/hr IVPB Q8H [facility] PRN Reason: Protocol Last Admin: 10/13/17 03:04 Dose: 50 mls/hr Dextrose/Sodium Chloride (Dextrose 5%/0.45% Ns 1000 Ml) 1,000 mls @ 80 mls/hr IV .[id number] [facility] Stop: 10/14/17 09:17 Lactobacillus Acidophilus (Bacid Acidophilus) 1 cap PO BID [facility] Pantoprazole Sodium (Protonix Ec Tab) 40 mg PO DAILY [facility] Last Admin: 10/13/17 08:55 Dose: 40 mg Potassium Chloride (K-Dur 20 Meq Er Tab) 20 meq PO DAILY [facility] - Labs Labs: 02/02/18 05:30 10/13/17 05:30 PT 12.4 Seconds (9.8-13.1) 10/08/17 14:18 INR 1.1 (0.9-1.2) 10/08/17 14:18 APTT 29.8 Seconds (25.6-37.1) 10/08/17 14:18 - Constitutional Appears: No Acute Distress - Head Exam Head Exam: NORMAL INSPECTION - Neurological Exam Neurological Exam: Awake Neuro motor strength exam: Left Upper Extremity: 4, Right Upper Extremity: 4, Left Lower Extremity: 4, Right Lower Extremity: 4 Additional comments: She is not consistent in answering and following commands. She has episode of confusion. Assessment and Plan (1) Toxic metabolic encephalopathy Assessment & Plan: Case discussed with Dr. Pitts, continue all current medical, physical therapies. Recommend to follow any recommendations from neurointerventionalist in regards with her MRI result. Treat any underlying infection. Status: Acute
--- NOTE | 2017-10-13 18:30 | CP.PCM.PN ---
Subjective - Date & Time of Evaluation Date of Evaluation: 10/13/17 Time of Evaluation: 09:00 - Subjective Subjective: 77 YO F seen and examined at bedside. Seen resting comfortably. Patient continues to have some pain which is controlled with medication. No overnight reports reported. Patient had debridement of wound yesterday, may require further debridement. Objective - Vital Signs/Intake and Output Vital Signs (last 24 hours): Temp Pulse Resp BP Pulse Ox 98.7 F 94 H 20 145/91 H 96 10/13/17 16:44 10/13/17 16:44 10/13/17 16:44 10/13/17 16:44 10/13/17 16:44 - Medications Medications: Current Medications Collagenase (Santyl) 1 applic TOP DAILY [facility] Last Admin: 10/12/17 09:50 Dose: 1 applic Dimethicone (Proshield Plus Skin Protectant) 1 applic TOP Q8 [facility] Last Admin: 10/13/17 16:43 Dose: 1 applic Docusate Sodium (Colace) 100 mg PO BID [facility] Last Admin: 10/13/17 16:42 Dose: 100 mg Enoxaparin Sodium (Lovenox) 40 mg SC DAILY [facility] PRN Reason: Protocol Last Admin: 10/13/17 08:55 Dose: 40 mg Piperacillin Sod/Tazobactam (Sod 3.375 gm/ Sodium Chloride) 50 mls @ 50 mls/hr IVPB Q8H [facility] PRN Reason: Protocol Last Admin: 10/13/17 11:40 Dose: 50 mls/hr Dextrose/Sodium Chloride (Dextrose 5%/0.45% Ns 1000 Ml) 1,000 mls @ 80 mls/hr IV .[id number] REPLACED BY [facility] Stop: 10/14/17 09:17 Last Admin: 10/13/17 10:49 Dose: 80 mls/hr Clindamycin Phosphate (Cleocin In Normal Saline) 600 mg in 50 mls @ 50 mls/hr IVPB Q8 [facility] PRN Reason: Protocol Last Admin: 10/13/17 16:41 Dose: 50 mls/hr Lactobacillus Acidophilus (Bacid Acidophilus) 1 cap PO BID [facility] Last Admin: 10/13/17 16:42 Dose: 1 cap Pantoprazole Sodium (Protonix Ec Tab) 40 mg PO DAILY [facility] Last Admin: 10/13/17 08:55 Dose: 40 mg Potassium Chloride (K-Dur 20 Meq Er Tab) 20 meq PO DAILY [facility] Last Admin: 10/13/17 09:45 Dose: 20 meq - Labs Labs: 10/13/17 05:30 10/13/17 05:30 PT 12.4 Seconds (9.8-13.1) 10/08/17 14:18 INR 1.1 (0.9-1.2) 10/08/17 14:18 APTT 29.8 Seconds (25.6-37.1) 10/08/17 14:18 - Constitutional Appears: No Acute Distress - Head Exam Head Exam: NORMAL INSPECTION - Respiratory Exam Respiratory Exam: Clear to Ausculation Bilateral, NORMAL BREATHING PATTERN. absent: Rhonchi, Wheezes - GI/Abdominal Exam GI & Abdominal Exam: Soft, Normal Bowel Sounds. absent: Tenderness - Extremities Exam Extremities Exam: Normal Inspection. absent: Calf Tenderness - Neurological Exam Neurological Exam: Alert, Awake, Oriented x3 - Skin Additional comments: Dressing appears C/D/I on right hip Assessment and Plan - Assessment and Plan (Free Text) Assessment: 77 yr old F admitted for sepsis and altered mental status. 1) Altered mental status: Unspecified - Neuro on board - MRI brain showed severe chronic microvasular changes in periventricular matter. Severe atrophy - Enlarged ventricles including the temporal horns most likely do to atrophy - EEG showed diffused abnormality of brain - Neurosurg recommends patient follow up outpatient. F[employer] DES[employer]ER shunting C/I since patient has active infection or necrotic skin wounds. 2) Sepsis -continue IV antibiotics, IV fluids -ID consult appreciated -Blood culture positive for gram positive cocci -urine culture positive for gram negative rods > 100,000 -wound care, podiatry on board: will follow recommendations -Right hip pressure ulcer: Patient had escharotomy and debridement of R hip pressure ulcer yesterday. May require furthur debridement. Surgery on board 3) DVT prophylaxis -DVT prophylaxis: lovenox 40 mg SC daily
[2017-10-14] MEDS: Clindamycin 600mg/50ml NS 600 MG/50 ML BAG IVPB SCH ×3 (01:47→17:22)
[2017-10-14] MEDS: Proshield Plus GEL TOP SCH ×3 (01:48→17:21)
[2017-10-14] MEDS: Piperacillin/Tazobact 3.375 GM in Sodium Chloride 0.9% 50 ML IVPB SCH ×2 (04:15→11:57)
[2017-10-14 07:24] LABS: BLOOD UREA NITROGEN 20 mg/dl (7-17); CALCIUM 9.2 mg/dL (8.4-10.2); GFR AFRICAN-AMERICAN > 60; GFR NON-AFRICAN AMERICAN > 60
[2017-10-14] MEDS: Potassium Chloride 20 mEq ER Tab PO SCH (09:13)
[2017-10-14] MEDS: Pantoprazole 40 mg EC Tab PO SCH (09:13)
[2017-10-14] MEDS: Enoxaparin 40 mg Syringe SC SCH (09:13)
[2017-10-14] MEDS: Lactobacillus Acidophilus 500 MU Cap PO SCH ×2 (09:18→17:22)
--- NOTE | 2017-10-14 13:08 | CP.PCM.PN ---
Subjective - Date & Time of Evaluation Date of Evaluation: 10/14/17 Time of Evaluation: 07:00 - Subjective Subjective: General Surgery Dr. Brandt Pt S&E @bedside. NAEO. Pt has no complaints. Denies pain at leg, F/C, N/V. tolerating diet. Objective - Vital Signs/Intake and Output Vital Signs (last 24 hours): Temp Pulse Resp BP Pulse Ox 97.9 F 77 20 156/92 H 95 10/14/17 08:21 10/14/17 08:21 10/14/17 08:21 10/14/17 08:21 10/14/17 08:21 Intake and Output: 10/14/17 10/14/17 06:59 18:59 Output Total 1000 Balance -1000 - Medications Medications: Current Medications Collagenase (Santyl) 1 applic TOP DAILY [facility] Last Admin: 10/12/17 09:50 Dose: 1 applic Dimethicone (Proshield Plus Skin Protectant) 1 applic TOP Q8 [facility] Last Admin: 10/14/17 09:12 Dose: 1 applic Docusate Sodium (Colace) 100 mg PO BID [facility] Last Admin: 10/14/17 09:13 Dose: 100 mg Enoxaparin Sodium (Lovenox) 40 mg SC DAILY [facility] PRN Reason: Protocol Last Admin: 10/14/17 09:13 Dose: 40 mg Piperacillin Sod/Tazobactam (Sod 3.375 gm/ Sodium Chloride) 50 mls @ 50 mls/hr IVPB Q8H [facility] PRN Reason: Protocol Last Admin: 10/14/17 11:57 Dose: 50 mls/hr Clindamycin Phosphate (Cleocin In Normal Saline) 600 mg in 50 mls @ 50 mls/hr IVPB Q8 [facility] PRN Reason: Protocol Last Admin: 10/14/17 09:14 Dose: 50 mls/hr Lactobacillus Acidophilus (Bacid Acidophilus) 1 cap PO BID [facility] Last Admin: 10/14/17 09:18 Dose: 1 cap Pantoprazole Sodium (Protonix Ec Tab) 40 mg PO DAILY [facility] Last Admin: 10/14/17 09:13 Dose: 40 mg Potassium Chloride (K-Dur 20 Meq Er Tab) 20 meq PO DAILY [facility] Last Admin: 10/14/17 09:13 Dose: 20 meq - Labs Labs: 10/13/17 05:30 10/14/17 05:30 PT 12.4 Seconds (9.8-13.1) 10/08/17 14:18 INR 1.1 (0.9-1.2) 10/08/17 14:18 APTT 29.8 Seconds (25.6-37.1) 10/08/17 14:18 - Constitutional Appears: Non-toxic, No Acute Distress - Head Exam Head Exam: NORMAL INSPECTION - Eye Exam Eye Exam: Normal appearance - ENT Exam ENT Exam: Mucous Membranes Moist - Respiratory Exam Respiratory Exam: NORMAL BREATHING PATTERN. absent: Accessory Muscle Use, Respiratory Distress - GI/Abdominal Exam GI & Abdominal Exam: Soft. absent: Distended, Tenderness - Extremities Exam Additional comments: R thigh dressing c/d/i - Neurological Exam Neurological Exam: Alert, Awake, Oriented x3 - Psychiatric Exam Psychiatric exam: Normal Affect, Normal Mood - Skin Skin Exam: Dry, Warm Assessment and Plan - Assessment and Plan (Free Text) Assessment: 77 y/o F w/ unstageable R hip pressure ulcer - monitor vitals - will need further bedside debridement as eschar thickens and becomes more friable - cont IV Abx per ID - cont medical management - GI/DVT PPx - cont medical management per PMD Pt discussed w/ Dr. Rikki Diaz DO PGY2
[2017-10-14] MEDS ORDERED: Piperacillin/Tazobact 3.375 GM in Sodium Chloride 0.9% 100 ML IVPB SCH (13:45)
[2017-10-14] MEDS: Piperacillin/Tazobact 3.375 GM in Sodium Chloride 0.9% 100 ML IVPB SCH (20:20)
[2017-10-14] MEDS: Dextrose 5%/0.45% NS 1,000 ML IV SCH (20:39)
[2017-10-15] MEDS: Clindamycin 600mg/50ml NS 600 MG/50 ML BAG IVPB SCH ×3 (00:43→16:42)
[2017-10-15] MEDS: Proshield Plus GEL TOP SCH ×3 (00:45→16:39)
[2017-10-15] MEDS: Piperacillin/Tazobact 3.375 GM in Sodium Chloride 0.9% 100 ML IVPB SCH ×3 (04:04→20:38)
[2017-10-15] MEDS: Enoxaparin 40 mg Syringe SC SCH (09:07)
[2017-10-15] MEDS: Potassium Chloride 20 mEq ER Tab PO SCH (09:07)
[2017-10-15] MEDS: Pantoprazole 40 mg EC Tab PO SCH (09:07)
[2017-10-15] MEDS: Lactobacillus Acidophilus 500 MU Cap PO SCH ×2 (09:17→16:38)
--- NOTE | 2017-10-15 15:55 | CP.PCM.PN ---
Subjective - Date & Time of Evaluation Date of Evaluation: 10/15/17 Time of Evaluation: 15:53 - Subjective Subjective: Surgery Pt s&e. NAEON. Pain controlled. Denies F/C/N/V/D/CP/SOB. Objective - Vital Signs/Intake and Output Vital Signs (last 24 hours): Temp Pulse Resp BP Pulse Ox 97.6 F 84 20 136/82 97 10/15/17 07:48 10/15/17 07:48 10/15/17 07:48 10/15/17 07:48 10/15/17 07:48 Intake and Output: 10/15/17 10/15/17 06:59 18:59 Intake Total 950 Output Total 1200 Balance -250 - Medications Medications: Current Medications Collagenase (Santyl) 1 applic TOP DAILY [facility] Last Admin: 10/12/17 09:50 Dose: 1 applic Dimethicone (Proshield Plus Skin Protectant) 1 applic TOP Q8 [facility] Last Admin: 10/15/17 09:06 Dose: 1 applic Docusate Sodium (Colace) 100 mg PO BID [facility] Last Admin: 10/15/17 09:07 Dose: 100 mg Enoxaparin Sodium (Lovenox) 40 mg SC DAILY [facility] PRN Reason: Protocol Last Admin: 10/15/17 09:07 Dose: 40 mg Clindamycin Phosphate (Cleocin In Normal Saline) 600 mg in 50 mls @ 50 mls/hr IVPB Q8 [facility] PRN Reason: Protocol Last Admin: 10/15/17 09:07 Dose: 50 mls/hr Piperacillin Sod/Tazobactam (Sod 3.375 gm/ Sodium Chloride) 100 mls @ 100 mls/ hr IVPB Q8@0400,1200,2000 [facility] PRN Reason: Protocol Last Admin: 10/15/17 12:00 Dose: 100 mls/hr Lactobacillus Acidophilus (Bacid Acidophilus) 1 cap PO BID [facility] Last Admin: 10/15/17 09:17 Dose: 1 cap Pantoprazole Sodium (Protonix Ec Tab) 40 mg PO DAILY [facility] Last Admin: 10/15/17 09:07 Dose: 40 mg Potassium Chloride (K-Dur 20 Meq Er Tab) 20 meq PO DAILY [facility] Last Admin: 10/15/17 09:07 Dose: 20 meq - Labs Labs: 10/13/17 05:30 10/14/17 05:30 PT 12.4 Seconds (9.8-13.1) 10/08/17 14:18 INR 1.1 (0.9-1.2) 10/08/17 14:18 APTT 29.8 Seconds (25.6-37.1) 10/08/17 14:18 - Constitutional Appears: No Acute Distress - Head Exam Head Exam: ATRAUMATIC, NORMAL INSPECTION, NORMOCEPHALIC - Eye Exam Eye Exam: EOMI, Normal appearance, PERRL Pupil Exam: NORMAL ACCOMODATION, PERRL - ENT Exam ENT Exam: Mucous Membranes Moist, Normal Exam - Neck Exam Neck Exam: Full ROM, Normal Inspection. absent: Lymphadenopathy - Respiratory Exam Respiratory Exam: Clear to Ausculation Bilateral, NORMAL BREATHING PATTERN - Cardiovascular Exam Cardiovascular Exam: REGULAR RHYTHM, +S1, +S2. absent: Murmur - GI/Abdominal Exam GI & Abdominal Exam: Soft, Normal Bowel Sounds. absent: Distended, Tenderness, Hypoactive Bowel Sounds - Rectal Exam Rectal Exam: NORMAL INSPECTION - Back Exam Back Exam: NORMAL INSPECTION - Neurological Exam Neurological Exam: Alert, Awake, CN II-XII Intact, Oriented x3 - Skin Skin Exam: Abrasion, Warm. absent: Intact, Normal Color Additional comments: R hip has [id number] ulceration with black eschar around the edges. Erhtyhema. Dressing applied. Assessment and Plan - Assessment and Plan (Free Text) Assessment: 77 y/o female POD 3 bedside wound debridement of R hip -Wet to dry dressing changes. - monitor VS - will need further bedside debridement as eschar thickens and becomes more friable - cont IV Abx per ID - cont medical management - GI/DVT PPx Discussed patient with Dr. Brandt
[2017-10-15] MEDS: Dextrose 5%/0.45% NS 1,000 ML IV SCH (20:44)
[2017-10-16] MEDS: Clindamycin 600mg/50ml NS 600 MG/50 ML BAG IVPB SCH ×3 (01:10→16:39)
[2017-10-16] MEDS: Proshield Plus GEL TOP SCH ×3 (01:11→16:37)
[2017-10-16] MEDS: Piperacillin/Tazobact 3.375 GM in Sodium Chloride 0.9% 100 ML IVPB SCH ×3 (04:13→21:01)
[2017-10-16 07:52] LABS: MEAN CORPUSCULAR HGB CONC 33.5 g/dL (33.0-37.0)
[2017-10-16 07:59] LABS: MEAN CELL VOLUME 91.5 fl (81.0-99.0); MEAN CORPUSCULAR HEMOGLOBIN 30.6 pg (27.0-31.0); RBC 3.92 Mil/uL (3.80-5.20); RED CELL DISTRIBUTION WIDTH 13.1 % (11.5-14.5)
--- NOTE | 2017-10-16 08:17 | CP.PCM.PN ---
Subjective - Date & Time of Evaluation Date of Evaluation: 10/16/17 Time of Evaluation: 08:16 - Subjective Subjective: 77 y/o female seen and examined at bedside. Denies any acute events overnight. Is tolerating diet well. Admits to mild pain in the right hip well controlled by meds. At present denies F/C/N/V/CP/SOB Objective - Vital Signs/Intake and Output Vital Signs (last 24 hours): Temp Pulse Resp BP Pulse Ox 97.8 F 67 19 101/58 L 93 L 10/16/17 00:00 10/16/17 00:00 10/16/17 00:00 10/16/17 00:00 10/16/17 00:00 Intake and Output: 10/16/17 10/16/17 06:59 18:59 Intake Total 1150 Output Total 1200 Balance -50 - Medications Medications: Current Medications Collagenase (Santyl) 1 applic TOP DAILY [facility] Last Admin: 10/12/17 09:50 Dose: 1 applic Dimethicone (Proshield Plus Skin Protectant) 1 applic TOP Q8 [facility] Last Admin: 10/16/17 01:11 Dose: 1 applic Docusate Sodium (Colace) 100 mg PO BID [facility] Last Admin: 10/15/17 16:38 Dose: 100 mg Enoxaparin Sodium (Lovenox) 40 mg SC DAILY [facility] PRN Reason: Protocol Last Admin: 10/15/17 09:07 Dose: 40 mg Clindamycin Phosphate (Cleocin In Normal Saline) 600 mg in 50 mls @ 50 mls/hr IVPB Q8 [facility] PRN Reason: Protocol Last Admin: 10/16/17 01:10 Dose: 50 mls/hr Piperacillin Sod/Tazobactam (Sod 3.375 gm/ Sodium Chloride) 100 mls @ 100 mls/ hr IVPB Q8@0400,1200,2000 [facility] PRN Reason: Protocol Last Admin: 10/16/17 04:13 Dose: 100 mls/hr Lactobacillus Acidophilus (Bacid Acidophilus) 1 cap PO BID [facility] Last Admin: 10/15/17 16:38 Dose: 1 cap Pantoprazole Sodium (Protonix Ec Tab) 40 mg PO DAILY [facility] Last Admin: 10/15/17 09:07 Dose: 40 mg Potassium Chloride (K-Dur 20 Meq Er Tab) 20 meq PO DAILY [facility] Last Admin: 10/15/17 09:07 Dose: 20 meq - Labs Labs: 10/16/17 07:40 10/14/17 05:30 PT 12.4 Seconds (9.8-13.1) 10/08/17 14:18 INR 1.1 (0.9-1.2) 10/08/17 14:18 APTT 29.8 Seconds (25.6-37.1) 10/08/17 14:18 - Constitutional Appears: Well, Non-toxic - Extremities Exam Additional comments: R eschar with central opening at prior debridement site, fibrogranular tissue in nature noted to wound bed -eschar stable, friable, lifting at wound margins -mild serous strikethrough noted on previous dressing - Neurological Exam Neurological Exam: Alert, Awake - Psychiatric Exam Psychiatric exam: Normal Affect, Normal Mood Assessment and Plan - Assessment and Plan (Free Text) Assessment: 77 y/o F w/ unstageable R hip pressure ulcer - monitor vital signs - will perform further bedside debridement of eschar at wound margins - cont IV Abx per ID - wound cx (+) for Proteus mirabilis - cont medical management - GI/DVT PPx - cont medical management per PMD Plan discussed w/ Dr. Brandt
[2017-10-16] MEDS: Lactobacillus Acidophilus 500 MU Cap PO SCH ×2 (09:35→16:40)
[2017-10-16] MEDS: Enoxaparin 40 mg Syringe SC SCH (09:36)
[2017-10-16] MEDS: Pantoprazole 40 mg EC Tab PO SCH (09:36)
[2017-10-16] MEDS: Potassium Chloride 20 mEq ER Tab PO SCH (09:36)
--- NOTE | 2017-10-16 10:34 | CP.PCM.PN ---
<Braulio Duque - Last Filed: 10/16/17 10:34> Subjective - Date & Time of Evaluation Date of Evaluation: 10/16/17 Time of Evaluation: 10:31 - Subjective Subjective: Ms. Yañez was seen and examined at the bedside. She is lethargic, but responsive to pain stimuli. She is unable to answer and follow commands. She moves her extremities spontaneously. She is incontinent to both urine and bowel movement. There was no untoward events overnight. Objective - Vital Signs/Intake and Output Vital Signs (last 24 hours): Temp Pulse Resp BP Pulse Ox 98.3 F 75 20 161/72 H 98 10/16/17 08:23 10/16/17 08:23 10/16/17 08:23 10/16/17 08:23 10/16/17 08:23 Intake and Output: 10/16/17 10/16/17 06:59 18:59 Intake Total 1150 Output Total 1200 Balance -50 - Medications Medications: Current Medications Collagenase (Santyl) 1 applic TOP DAILY [facility] Last Admin: 10/12/17 09:50 Dose: 1 applic Dimethicone (Proshield Plus Skin Protectant) 1 applic TOP Q8 [facility] Last Admin: 10/16/17 09:31 Dose: 1 applic Docusate Sodium (Colace) 100 mg PO BID [facility] Last Admin: 10/16/17 09:36 Dose: Not Given Enoxaparin Sodium (Lovenox) 40 mg SC DAILY [facility] PRN Reason: Protocol Last Admin: 10/16/17 09:36 Dose: 40 mg Clindamycin Phosphate (Cleocin In Normal Saline) 600 mg in 50 mls @ 50 mls/hr IVPB Q8 [facility] PRN Reason: Protocol Last Admin: 10/16/17 09:30 Dose: 50 mls/hr Piperacillin Sod/Tazobactam (Sod 3.375 gm/ Sodium Chloride) 100 mls @ 100 mls/ hr IVPB Q8@0400,1200,2000 [facility] PRN Reason: Protocol Last Admin: 10/16/17 04:13 Dose: 100 mls/hr Lactobacillus Acidophilus (Bacid Acidophilus) 1 cap PO BID [facility] Last Admin: 10/16/17 09:35 Dose: Not Given Pantoprazole Sodium (Protonix Ec Tab) 40 mg PO DAILY [facility] Last Admin: 10/16/17 09:36 Dose: Not Given Potassium Chloride (K-Dur 20 Meq Er Tab) 20 meq PO DAILY [facility] Last Admin: 10/16/17 09:36 Dose: Not Given - Labs Labs: 10/16/17 07:40 10/14/17 05:30 PT 12.4 Seconds (9.8-13.1) 10/08/17 14:18 INR 1.1 (0.9-1.2) 10/08/17 14:18 APTT 29.8 Seconds (25.6-37.1) 10/08/17 14:18 - Constitutional Appears: No Acute Distress - Head Exam Head Exam: NORMAL INSPECTION - Neurological Exam Neuro motor strength exam: Left Upper Extremity: 3, Right Upper Extremity: 3, Left Lower Extremity: 3, Right Lower Extremity: 3 Additional comments: She remains lethargic and confused, responsive to pain stimuli. Unable to follow commands. Assessment and Plan (1) Toxic metabolic encephalopathy Assessment & Plan: Case discussed with Dr. Sarah, continue all current medical, physical, and occupational therapies. Recommend to treat any under lying infection and any electrolyte imbalance. To follow recommendations from neurosurgeon. Status: Acute <Danielle Sarah - Last Filed: 10/16/17 11:13> Objective - Vital Signs/Intake and Output Vital Signs (last 24 hours): Temp Pulse Resp BP Pulse Ox 98.3 F 75 20 161/72 H 98 10/16/17 08:23 10/16/17 08:23 10/16/17 08:23 10/16/17 08:23 10/16/17 08:23 Intake and Output: 10/16/17 10/16/17 06:59 18:59 Intake Total 1150 Output Total 1200 Balance -50 - Medications Medications: Current Medications Collagenase (Santyl) 1 applic TOP DAILY [facility] Last Admin: 10/12/17 09:50 Dose: 1 applic Dimethicone (Proshield Plus Skin Protectant) 1 applic TOP Q8 [facility] Last Admin: 10/16/17 09:31 Dose: 1 applic Docusate Sodium (Colace) 100 mg PO BID [facility] Last Admin: 10/16/17 09:36 Dose: Not Given Enoxaparin Sodium (Lovenox) 40 mg SC DAILY [facility] PRN Reason: Protocol Last Admin: 10/16/17 09:36 Dose: 40 mg Clindamycin Phosphate (Cleocin In Normal Saline) 600 mg in 50 mls @ 50 mls/hr IVPB Q8 [facility] PRN Reason: Protocol Last Admin: 10/16/17 09:30 Dose: 50 mls/hr Piperacillin Sod/Tazobactam (Sod 3.375 gm/ Sodium Chloride) 100 mls @ 100 mls/ hr IVPB Q8@0400,1200,2000 [facility] PRN Reason: Protocol Last Admin: 10/16/17 04:13 Dose: 100 mls/hr Lactobacillus Acidophilus (Bacid Acidophilus) 1 cap PO BID [facility] Last Admin: 10/16/17 09:35 Dose: Not Given Pantoprazole Sodium (Protonix Ec Tab) 40 mg PO DAILY [facility] Last Admin: 10/16/17 09:36 Dose: Not Given Potassium Chloride (K-Dur 20 Meq Er Tab) 20 meq PO DAILY [facility] Last Admin: 10/16/17 09:36 Dose: Not Given - Labs Labs: 10/16/17 07:40 10/16/17 10:29 PT 12.4 Seconds (9.8-13.1) 10/08/17 14:18 INR 1.1 (0.9-1.2) 10/08/17 14:18 APTT 29.8 Seconds (25.6-37.1) 10/08/17 14:18 Assessment and Plan - Assessment and Plan (Free Text) Plan: Recommend EEG.
[2017-10-16 10:41] LABS: BLOOD UREA NITROGEN 19 mg/dl (7-17); GFR AFRICAN-AMERICAN > 60; GFR NON-AFRICAN AMERICAN > 60
[2017-10-17] MEDS: Clindamycin 600mg/50ml NS 600 MG/50 ML BAG IVPB SCH ×2 (01:02→09:46)
[2017-10-17] MEDS: Proshield Plus GEL TOP SCH ×2 (01:03→09:48)
[2017-10-17] MEDS: Piperacillin/Tazobact 3.375 GM in Sodium Chloride 0.9% 100 ML IVPB SCH ×2 (03:37→15:28)
--- NOTE | 2017-10-17 08:20 | CP.PCM.PN ---
Subjective - Date & Time of Evaluation Date of Evaluation: 10/17/17 Time of Evaluation: 08:20 - Subjective Subjective: General Surgery Progress Note - Dr. Brandt 77 y/o female seen and examined at bedside this morning. Denies any acute events overnight. Admits to tolerating diet well. Admits to mild pain in the right hip, especially when the knee is bent. Denies pain within the hip wound. At present denies F/C/N/V/CP/SOB Objective - Vital Signs/Intake and Output Vital Signs (last 24 hours): Temp Pulse Resp BP Pulse Ox 98.6 F 100 H 20 139/84 96 10/17/17 08:18 10/17/17 08:18 10/17/17 08:18 10/17/17 08:18 10/17/17 08:18 - Medications Medications: Current Medications Collagenase (Santyl) 1 applic TOP DAILY [facility] Last Admin: 10/12/17 09:50 Dose: 1 applic Dimethicone (Proshield Plus Skin Protectant) 1 applic TOP Q8 [facility] Last Admin: 10/17/17 01:03 Dose: 1 applic Docusate Sodium (Colace) 100 mg PO BID [facility] Last Admin: 10/16/17 16:39 Dose: 100 mg Enoxaparin Sodium (Lovenox) 40 mg SC DAILY [facility] PRN Reason: Protocol Last Admin: 10/16/17 09:36 Dose: 40 mg Clindamycin Phosphate (Cleocin In Normal Saline) 600 mg in 50 mls @ 50 mls/hr IVPB Q8 [facility] PRN Reason: Protocol Last Admin: 10/17/17 01:02 Dose: 50 mls/hr Piperacillin Sod/Tazobactam (Sod 3.375 gm/ Sodium Chloride) 100 mls @ 100 mls/ hr IVPB Q8@0400,1200,2000 [facility] PRN Reason: Protocol Last Admin: 10/17/17 03:37 Dose: 100 mls/hr Lactobacillus Acidophilus (Bacid Acidophilus) 1 cap PO BID [facility] Last Admin: 10/16/17 16:40 Dose: 1 cap Pantoprazole Sodium (Protonix Ec Tab) 40 mg PO DAILY [facility] Last Admin: 10/16/17 09:36 Dose: Not Given Potassium Chloride (K-Dur 20 Meq Er Tab) 20 meq PO DAILY [facility] Last Admin: 10/16/17 09:36 Dose: Not Given - Labs Labs: 10/16/17 07:40 10/16/17 10:29 PT 12.4 Seconds (9.8-13.1) 10/08/17 14:18 INR 1.1 (0.9-1.2) 10/08/17 14:18 APTT 29.8 Seconds (25.6-37.1) 10/08/17 14:18 - Constitutional Appears: Well, Non-toxic, No Acute Distress - Extremities Exam Additional comments: R eschar with central opening at prior debridement site, fibrogranular tissue in nature noted to wound bed -eschar stable, friable, lifting at wound margins -post debridement, wound base is mixed with fibrotic and necrotic tissue -minimal serous strikethrough noted on previous dressing - Neurological Exam Neurological Exam: Alert, Awake - Psychiatric Exam Psychiatric exam: Normal Affect, Normal Mood - Skin Skin Exam: Dry, Normal Color Assessment and Plan - Assessment and Plan (Free Text) Assessment: 77 y/o F w/ unstageable R hip pressure ulcer - monitor vital signs - further bedside debridement of eschar performed at wound margins under substerile conditions - aseptic excisional debridement with sterile #10 blade and sterile franck clamp - pt tolerated procedure well without incident - resume Santyl for enzymatic wound debridement - cont IV Abx per ID - wound cx (+) for Proteus mirabilis - cont medical management - GI/DVT PPx - cont medical management per PMD Plan discussed w/ Dr. Brandt
[2017-10-17] MEDS: Dextrose 5%/0.45% NS 1,000 ML IV SCH (09:46)
[2017-10-17] MEDS: Lactobacillus Acidophilus 500 MU Cap PO SCH (09:47)
[2017-10-17] MEDS: Pantoprazole 40 mg EC Tab PO SCH (09:47)
[2017-10-17] MEDS: Potassium Chloride 20 mEq ER Tab PO SCH (09:47)
[2017-10-17] MEDS: Enoxaparin 40 mg Syringe SC SCH (09:47)
[2017-10-17] MEDS: Santyl Collagenase OINTMENT TOP SCH (09:48)
--- NOTE | 2017-10-17 11:09 | CP.PCM.PCO ---
Assessment & Plan - Assessment and Plan (Free Text) Assessment: Case discussed with , [facility] resident - pt. cleared for discharge to [facility] by - cont. Griffin for debridement cont. IV Abx Clindamycin 600 mg iv q8 for 10 more days cont. Zosyn 3.375 mg iv q8 for 10 more days cont. PT, cont. wound care Above discussed with
--- NOTE | 2017-10-17 13:26 | CP.PCM.CON ---
History of Present Illness - History of Present Illness History of Present Illness: 77 year old female seen for ulceration to lateral right ankle. Patient is seen sleeping at time of visit and has AMS upon arousal so attaining history about the ulceration proves difficult. Patient appears in NAD at time of visit. Per nursing no acute overnight events and no recent N/V/F/C/CP/SOB/D. Multipodus boots are noted to be in place at time of visit to b/l feet. Review of Systems - Review of Systems Review of Systems: ROS as per HPI Past Patient History - Past Medical History & Family History Past Medical History?: No - Past Social History Smoking Status: unobtainab - ENDOCRINE/METABOLIC Hx Diabetes Mellitus Type 2: Yes (pt thinks she may be) - MUSCULOSKELETAL/RHEUMATOLOGICAL Hx Falls: Yes - PSYCHIATRIC Hx Substance Use: (unobtainable, pt lethargic) - SURGICAL HISTORY Hx Surgeries: No (unobtainable, pt lethargic) Meds Allergies/Adverse Reactions: Allergies Allergy/AdvReac Type Severity Reaction Status Date / Time Unobtainable Allergy Verified 10/08/17 15:58 - Medications Medications: Current Medications Collagenase (Santyl) 1 applic TOP DAILY [facility] Last Admin: 10/17/17 09:48 Dose: 1 applic Dimethicone (Proshield Plus Skin Protectant) 1 applic TOP Q8 [facility] Last Admin: 10/17/17 09:48 Dose: 1 applic Docusate Sodium (Colace) 100 mg PO BID [facility] Last Admin: 10/17/17 09:47 Dose: 100 mg Enoxaparin Sodium (Lovenox) 40 mg SC DAILY [facility] PRN Reason: Protocol Last Admin: 10/17/17 09:47 Dose: 40 mg Clindamycin Phosphate (Cleocin In Normal Saline) 600 mg in 50 mls @ 50 mls/hr IVPB Q8 [facility] PRN Reason: Protocol Last Admin: 10/17/17 09:46 Dose: 50 mls/hr Piperacillin Sod/Tazobactam (Sod 3.375 gm/ Sodium Chloride) 100 mls @ 100 mls/ hr IVPB Q8@0400,1200,2000 [facility] PRN Reason: Protocol Last Admin: 10/17/17 03:37 Dose: 100 mls/hr Lactobacillus Acidophilus (Bacid Acidophilus) 1 cap PO BID [facility] Last Admin: 10/17/17 09:47 Dose: 1 cap Pantoprazole Sodium (Protonix Ec Tab) 40 mg PO DAILY [facility] Last Admin: 10/17/17 09:47 Dose: 40 mg Potassium Chloride (K-Dur 20 Meq Er Tab) 20 meq PO DAILY [facility] Last Admin: 10/17/17 09:47 Dose: 20 meq Physical Exam - Constitutional Appears: Well, Non-toxic, No Acute Distress - Extremities Exam Additional comments: B/l LE focused exam: Vasc: DP/PT pulses palpable 2/4 b/l. Skin temperature warm to warm from proximal to distal. CFT < 3 seconds to all digits b/l. No edema noted b/l Neuro: Epicritic and protective sensation grossly intact b/l Derm: Stage one, very superficial abrasion noted to right lateral malleolus. Complete epithelialization noted over wound. No clinical signs of infection noted incluidng drainage, malodor, purulence, fluctuance, or periwound erythema. Wound does not probe deep. Otherwise, no open lesions, wounds, maceration, xerosis, abnormal pigmentation or abnormal growths noted b/l. Nails 1-10 noted to be thickened and discolored at this time. MSK: No POP to right lateral malleolus wound - Neurological Exam Neurological exam: Alert - Psychiatric Exam Psychiatric exam: Normal Affect, Normal Mood Results - Vital Signs Recent Vital Signs: Last Vital Signs Temp 98.6 F 10/17/17 08:18 Pulse 105 H 10/17/17 13:14 Resp 97 H 10/17/17 13:14 BP 139/84 10/17/17 08:18 Pulse Ox 96 10/17/17 08:18 - Labs Result Diagrams: 10/16/17 07:40 10/16/17 10:29 Assessment & Plan - Assessment and Plan (Free Text) Assessment: 77 year old female seen at bedside for right lateral malleolus wound- healed Plan: Patient seen and evaluated at bedside Plan discussed with attending Dr. Michaels Afebrile, absent leukocytosis Wound is almost completely healed at this time No surgical intervention or local wound care required at this time Continue patient in multipodus boots at all times while in bed Podiatry will sign off at this time. Please reconsult in future as needed, thank you - Date & Time Date: 10/17/17 Time: 13:33
--- NOTE | 2017-10-17 15:00 | CP.PCM.DIS ---
Provider - Provider Date of Admission: 10/08/17 17:05 Attending physician: Elvin Fox MD Time Spent in preparation of Discharge (in minutes): 30 Diagnosis - Discharge Diagnosis (1) UTI (urinary tract infection) Status: Acute (2) Ulcer Status: Chronic (3) Normal pressure hydrocephalus Status: Acute Hospital Course - Lab Results Lab Results: Micro Results 10/10/17 09:25 Blood Blood Culture - Final NO GROWTH AFTER 5 DAYS 10/10/17 09:25 Blood Gram Stain - Final TEST NOT PERFORMED 10/10/17 09:35 Blood Blood Culture - Final NO GROWTH AFTER 5 DAYS 10/10/17 09:35 Blood Gram Stain - Final TEST NOT PERFORMED 10/12/17 15:00 Thigh - Right Gram Stain - Final 10/12/17 15:00 Thigh - Right Wound Culture - Final Proteus Mirabilis 10/08/17 14:25 Blood-Venous Blood Culture - Final Coagulase Neg Staphylococcus 10/08/17 14:25 Blood-Venous Gram Stain - Final 10/08/17 14:10 Blood-Venous S.aureus & Coag-Neg Staph PNA FISH - Final 10/08/17 14:10 Blood-Venous Blood Culture - Final Coagulase Neg Staphylococcus 10/08/17 14:10 Blood-Venous Gram Stain - Final 10/08/17 14:18 Urine,Farr Urine Culture - Final Escherichia Coli Most Recent Lab Values WBC 9.0 K/uL (4.8-10.8) 10/16/17 07:40 RBC 3.92 Mil/uL (3.80-5.20) 10/16/17 07:40 Hgb 12.0 g/dL (12.0-16.0) 10/16/17 07:40 Hct 35.9 % (34.0-47.0) 10/16/17 07:40 MCV 91.5 fl (81.0-99.0) 10/16/17 07:40 MCH 30.6 pg (27.0-31.0) 10/16/17 07:40 MCHC 33.5 g/dL (33.0-37.0) 10/16/17 07:40 RDW 13.1 % (11.5-14.5) 10/16/17 07:40 Plt Count 292 K/uL (130-400) 10/16/17 07:40 MPV 9.0 fl (7.2-11.7) 10/09/17 04:30 Neut % (Auto) 80.5 % (50.0-75.0) H 10/09/17 04:30 Lymph % (Auto) 6.9 % (20.0-40.0) L 10/09/17 04:30 [place] % (Auto) 11.9 % (0.0-10.0) H 10/09/17 04:30 Eos % (Auto) 0.2 % (0.0-4.0) 10/09/17 04:30 Baso % (Auto) 0.5 % (0.0-2.0) 10/09/17 04:30 Neut # 11.8 K/uL (1.8-7.0) H 10/09/17 04:30 Lymph # 1.0 K/uL (1.0-4.3) 10/09/17 04:30 [place] # 1.7 K/uL (0.0-0.8) H 10/09/17 04:30 Eos # 0.0 K/uL (0.0-0.7) 10/09/17 04:30 Baso # 0.1 K/uL (0.0-0.2) 10/09/17 04:30 Neutrophils % (Manual) 86 % (42-75) H 10/08/17 14:18 Band Neutrophils % 3 % (0-2) H 10/08/17 14:18 Lymphocytes % (Manual) 5 % (20-50) L 10/08/17 14:18 Monocytes % (Manual) 6 % (0-10) 10/08/17 14:18 Platelet Estimate Normal (NORMAL) 10/08/17 14:18 Large Platelets Present 10/08/17 14:18 Anisocytosis (manual) Slight 10/08/17 14:18 Microcytosis (manual) Slight 10/08/17 14:18 Tear Drop Cells Slight 10/08/17 14:18 Ovalocytes Slight 10/08/17 14:18 ESR 75 mm/hr (0-30) H 10/16/17 10:29 PT 12.4 Seconds (9.8-13.1) 10/08/17 14:18 INR 1.1 (0.9-1.2) 10/08/17 14:18 APTT 29.8 Seconds (25.6-37.1) 10/08/17 14:18 pO2 26 mm/Hg (30-55) L 10/08/17 17:26 VBG pH 7.40 (7.32-7.43) 10/08/17 17:26 VBG pCO2 48 mmHg (40-60) 10/08/17 17:26 VBG HCO3 26.7 mmol/L 10/08/17 17:26 VBG Total CO2 31.2 mmol/L (22-28) H 10/08/17 17:26 VBG O2 Sat (Calc) 51.4 % (40-65) 10/08/17 17:26 VBG Base Excess 4.0 mmol/L (0.0-2.0) H 10/08/17 17:26 VBG Potassium 3.8 mmol/L (3.6-5.2) 10/08/17 17:26 Sodium 142.0 mmol/L (132-148) 10/08/17 17:26 Chloride 105.0 mmol/L (98-107) 10/08/17 17:26 Glucose 154 mg/dL (65-105) H 10/08/17 17:26 Lactate 2.7 mmol/L (0.7-2.1) H 10/08/17 17:26 FiO2 21.0 % 10/08/17 17:26 Blood Gas Comments Lactate 2.7 10/08/17 17:26 Crit Value Called To tyra Lester 10/08/17 17:26 Crit Value Called By 203 10/08/17 17:26 Crit Value Read Back Y 10/08/17 17:26 Blood Gas Notified Time 173110/08/17 17:26 Sodium 138 mmol/l (132-148) 10/16/17 10:29 Potassium 4.0 MMOL/L (3.6-5.0) 10/16/17 10:29 Chloride 108 mmol/L (98-107) H 10/16/17 10:29 Carbon Dioxide 25 mmol/L (22-30) 10/16/17 10:29 Anion Gap 9 (10-20) L 10/16/17 10:29 BUN 19 mg/dl (7-17) H 10/16/17 10:29 Creatinine 0.8 mg/dl (0.7-1.2) 10/16/17 10:29 Est GFR ( Amer) > 60 10/16/17 10:29 Est GFR (Non-Af Amer) > 60 10/16/17 10:29 POC Glucose (mg/dL) 91 mg/dL (65-110) 10/08/17 14:14 Random Glucose 108 mg/dL (65-105) H 10/16/17 10:29 Lactic Acid 1.5 MMOL/L (0.7-2.1) 10/09/17 12:49 Calcium 9.0 mg/dL (8.4-10.2) 10/16/17 10:29 Total Bilirubin 0.4 mg/dl (0.2-1.3) 10/12/17 08:40 AST 31 U/L (14-36) 10/12/17 08:40 ALT 47 U/L (9-52) 10/12/17 08:40 Alkaline Phosphatase 83 U/L (38-126) 10/12/17 08:40 Total Creatine Kinase 143 U/L (30-135) H 10/10/17 09:25 Troponin I 0.0220 ng/mL (0.00-0.120) 10/08/17 14:18 Total Protein 5.2 G/DL (6.3-8.2) L 10/12/17 08:40 Albumin 2.5 g/dL (3.5-5.0) L D 10/12/17 08:40 Globulin 2.7 gm/dL (2.2-3.9) 10/12/17 08:40 Albumin/Globulin Ratio 0.9 (1.0-2.1) L 10/12/17 08:40 TSH 3rd Generation 2.41 mIU/ML (0.46-4.68) 10/09/17 04:30 Venous Blood Potassium 3.8 mmol/L (3.6-5.2) 10/08/17 17:26 Urine Color Yellow (YELLOW) 10/10/17 12:15 Urine Clarity Cloudy (Clear) 10/10/17 12:15 Urine pH 6.0 (5.0-8.0) 10/10/17 12:15 Ur Specific Cora 1.028 (1.003-1.030) 10/10/17 12:15 Urine Protein 30 mg/dL (NEGATIVE) 10/10/17 12:15 Urine Glucose (UA) Neg mg/dL (Normal) 10/10/17 12:15 Urine Ketones Negative mg/dL (NEGATIVE) 10/10/17 12:15 Urine Blood Negative (NEGATIVE) 10/10/17 12:15 Urine Nitrate Negative (NEGATIVE) 10/10/17 12:15 Urine Bilirubin Negative (NEGATIVE) 10/10/17 12:15 Urine Urobilinogen 0.2-1.0 mg/dL (0.2-1.0) 10/10/17 12:15 Ur Leukocyte Esterase Large Babita/uL (Negative) 10/10/17 12:15 Urine RBC (Auto) 19 /hpf (0-3) H 10/08/17 14:18 Urine Microscopic WBC 38 /hpf (0-5) H 10/10/17 12:15 Ur Squamous Epith Cells 1 /hpf (0-5) 10/10/17 12:15 Urine Bacteria Occ (<OCC) H 10/10/17 12:15 Hyaline Casts 3-5 /hpf (0-2) H 10/10/17 12:15 - Hospital Course Hospital Course: 77 YO F was admitted for sepsis, altered mental status, UTI, bacteremia, and large right hip necrotic ulcer. Patient has been recieving IV antibiotics. She has also had multiple wound debridements with surgery. - Patient was had an MRI, which was consistent with normal pressure hydrocephalis. However surgical intervention is C/I while patient has active infection. Have advised to f/u once active infection has resolved. - Patient has been cleared by surgery for discharge. Will continue to recieve 10 days of Clinda and Zosyn. Discharge Exam - Head Exam Head Exam: NORMAL INSPECTION - Respiratory Exam Respiratory Exam: NORMAL BREATHING PATTERN. absent: Wheezes, Respiratory Distress - Cardiovascular Exam Cardiovascular Exam: REGULAR RHYTHM, +S1, +S2 - GI/Abdominal Exam GI & Abdominal Exam: Normal Bowel Sounds, Soft - Extremities Exam Additional comments: Dressing appears C/D/I on right hip - Neurological Exam Additional comments: Awake and responds to name however is not oriented to place and time Discharge Plan - Follow Up Plan Condition: GOOD Disposition: REHAB FACILITY/REHAB UNIT
[2017-10-17 15:56] VITALS: BP 112/74; PULSE 96; RESP 17; TEMP 97.3; O2SAT 98
== END 2017-10-17 16:40 | DRG 853 ==
LOC: H.ER 13:29 → H.ERHOLD 17:05 → H.TEL 21:30 → H.MEDSURG1 10-11 17:12
PROVIDERS: ADMIT Family Medicine; ATTEND Family Medicine
PROC: 0JBC0ZZ Excision of Pelvic Region Subcutaneous Tissue and Fascia, Open Approach (ICD-10-PCS; principal; 2017-10-12)
PROC: 0HBRXZZ Excision of Toe Nail, External Approach (ICD-10-PCS; 2017-10-17)
PROC: 0HBRXZZ Excision of Toe Nail, External Approach (ICD-10-PCS; 2017-10-17)
PROC: 0HBRXZZ Excision of Toe Nail, External Approach (ICD-10-PCS; 2017-10-17)
PROC: 0HBRXZZ Excision of Toe Nail, External Approach (ICD-10-PCS; 2017-10-17)
PROC: 0HBRXZZ Excision of Toe Nail, External Approach (ICD-10-PCS; 2017-10-17)
PROC: 0HBRXZZ Excision of Toe Nail, External Approach (ICD-10-PCS; 2017-10-17)
PROC: 0HBRXZZ Excision of Toe Nail, External Approach (ICD-10-PCS; 2017-10-17)
PROC: 0HBRXZZ Excision of Toe Nail, External Approach (ICD-10-PCS; 2017-10-17)
PROC: 0HBRXZZ Excision of Toe Nail, External Approach (ICD-10-PCS; 2017-10-17)
PROC: 0HBRXZZ Excision of Toe Nail, External Approach (ICD-10-PCS; 2017-10-17)
DX: A41.9 Sepsis, unspecified organism (principal); G92 Toxic encephalopathy; L89.210 Pressure ulcer of right hip, unstageable; N39.0 Urinary tract infection, site not specified; M62.82 Rhabdomyolysis; G91.2 (Idiopathic) normal pressure hydrocephalus; L89.891 Pressure ulcer of other site, stage 1; R65.20 Severe sepsis without septic shock; B96.4 Proteus (mirabilis) (morganii) as the cause of diseases classified elsewhere; B96.20 Unspecified Escherichia coli [E. coli] as the cause of diseases classified elsewhere; L85.3 Xerosis cutis; E86.0 Dehydration

== ENCOUNTER 2017-10-28 17:25 | Inpatient (IN) | payer MEDICARE ==
[2017-10-28 17:25] VITALS: BMI 24.9
[2017-10-28] MEDS ORDERED: Sodium Chloride 0.9% 250 ML IV STA (18:19)
[2017-10-28 18:55] LABS: BASO # 0.1 K/uL (0.0-0.2); BASO % 0.9 % (0.0-2.0); EOS # 0.1 K/uL (0.0-0.7); LYMPH # 1.3 K/uL (1.0-4.3); LYMPH % 17.3 % (20.0-40.0); MEAN CELL VOLUME 91.9 fl (81.0-99.0); MEAN CORPUSCULAR HEMOGLOBIN 30.1 pg (27.0-31.0); MEAN CORPUSCULAR HGB CONC 32.7 g/dL (33.0-37.0); MEAN PLATELET VOLUME 8.5 fl (7.2-11.7); MONO # 0.8 K/uL (0.0-0.8); MONO % 11.5 % (0.0-10.0); NEUT % 68.3 % (50.0-75.0); NRBC % 0.2 % (0.0-0.0); RED CELL DISTRIBUTION WIDTH 13.8 % (11.5-14.5); WHITE BLOOD COUNT 7.2 K/uL (4.8-10.8)
--- NOTE | 2017-10-28 18:55 | ED PDOC ---
Syncope/Near Syncope/Dizziness Time Seen by Provider: 10/28/17 17:38 Chief Complaint (Nursing): Syncope Chief Complaint (Provider): Near Syncopal Episode History Per: Patient History/Exam Limitations: no limitations Onset/Duration Of Symptoms: Hrs Current Symptoms Are (Timing): Still Present Activity At Onset Of Symptoms: Lying Seizure Or Post-ictal Symptoms: None Fall Associated With With Symptoms: No Severity: None Additional Complaint(s): 77 year old female presents to the ED post near syncopal episode. According to both EMS and nursing the patient had a near syncopal episode while laying in her stretcher. As per EMS the patients blood pressure was low and systolic 87 and as a result IV fluids were given en route to the ED. Patient is a poor historian and is unable to report why she is in the ER today. Patient denies feeling like she will faint. Denies chest pain, shortness of breath, focal weakness. Patient also notes right buttock pain where she has a large ulcer that is currently under treatment. PMD: Dr. Bianchi Past Medical History Vital Signs: Last Vital Signs Temp 98.5 F 10/28/17 17:27 Pulse 93 H 10/28/17 17:27 Resp 16 10/28/17 17:27 BP 151/55 H 10/28/17 17:27 Pulse Ox 98 10/28/17 17:27 - Family History Family History: States: Unknown Family Hx - Immunization History Hx Tetanus Toxoid Vaccination: (cannot remember) - Home Medications Home Medications: Ambulatory Orders Medication Instructions Recorded Acetaminophen [Tylenol 325mg tab] 2 tab PO Q4 PRN 10/28/17 Aluminum Hydroxide/Magnesium H 30 ml PO Q4 PRN 10/28/17 [Maalox 30 ml] Amino Acids/Protein Hydrolys 30 ml PO TID 10/28/17 [Pro-Stat Profile Liquid Packet] Ascorbic Acid [Vitamin C 250 mg 250 mg PO BID 10/28/17 Tab] Collagenase [Santyl] 250 units TOP DAILY 10/28/17 Divalproex [Depakote Sprinkles] 125 mg PO BID 10/28/17 Docusate Sodium [Harris' 100 mg PO BID 10/28/17 Laxative] Enoxaparin [Lovenox] 40 mg SC DAILY 10/28/17 Fentanyl [Fentanyl] 25 mcg TD Q72 10/28/17 Lactobacillus Acidophilus 1 tab PO BID 10/28/17 [Acidophilus Lactobacilli] Linagliptin [Tradjenta] 5 mg PO DAILY 10/28/17 Magnesium Hydroxide [Milk Of 30 ml PO DAILY PRN 10/28/17 Magnesia] Multivitamin [Multivitamins] 1 tab PO DAILY 10/28/17 Potassium Chloride [Potassium 20 meq PO DAILY 10/28/17 Chloride] Silver Sulfadiazine 1% [Silvadene 1 applic TOP DAILY 10/28/17 1%] - Allergies Allergies/Adverse Reactions: Allergies Allergy/AdvReac Type Severity Reaction Status Date / Time Unobtainable Allergy Verified 10/08/17 15:58 Review of Systems ROS Statement: Except As Marked, All Systems Reviewed And Found Negative Cardiovascular: Negative for: Chest Pain Respiratory: Negative for: Shortness of Breath Musculoskeletal: Positive for: Other (right buttock pain) Neurological: Positive for: Other (near syncope) Physical Exam - Reviewed Nursing Documentation Reviewed: Yes Vital Signs Reviewed: Yes - Physical Exam Appears: Positive for: Uncomfortable (painful discomfort, cachectic and appears chronically ill) Head Exam: Positive for: ATRAUMATIC, NORMOCEPHALIC Skin: Positive for: Warm, Dry (large RIGHT buttock wound), Pallor Eye Exam: Positive for: EOMI, PERRL ENT: Positive for: Other (tacky mucus membranes) Neck: Positive for: Painless ROM, Supple Cardiovascular/Chest: Positive for: Regular Rate, Rhythm. Negative for: Murmur Respiratory: Positive for: Normal Breath Sounds. Negative for: Wheezing Gastrointestinal/Abdominal: Positive for: Soft. Negative for: Tenderness Back: Positive for: Other (RIGHT buttock with large welldemarcated ulcer with packing). Negative for: Decreased ROM Extremity: Positive for: Normal ROM, Other (RIGHT heel/lateral malleolus dark area (healed wound)). Negative for: Deformity Lymphatic: Negative for: Adenopathy Neurologic/Psych: Positive for: Alert. Negative for: Motor/Sensory Deficits - Laboratory Results Result Diagrams: 10/28/17 18:28 10/28/17 18:28 - ECG O2 Sat by Pulse Oximetry: 98 (RA) Pulse Ox Interpretation: Normal Medical Decision Making Medical Decision Makin Initial Impression 77 year old female presenting with near syncope and hypotension Differentials: Dehydration, electrolyte abnormality, syncope, sepsis. Initial plan: * Type and Screen * VBG * EKG * CMP * CPK * Magnesium * Phosphorous * Troponin * Udip * CBC * Partial Thromboplastin * Prothrombin time * Reevaluation * History clarified by RN Daniella, who talked to nurse at [facility]. Pt was having physical therapy and suddenly became unresponsive. No convulsive activity witnessed. She was found to be hypotensive and given IVF in prison. Documented by Mackenzie Angeles acting as a scribe for Sarah Jaimes MD. All medical record entries made by the Scribe were at my direction and personally dictated by me. I have reviewed the chart and agree that the record accurately reflects my personal performance of the history, physical exam, medical decision making, and the department course for this patient. I have also personally directed, reviewed, and agree with the discharge instructions and disposition. Disposition - Disposition Forms: [employer] [facility] ([place])
[2017-10-28 18:57] LABS: VENOUS BLOOD GAS PCO2 53 mmHg (40-60); VENOUS BLOOD GAS PO2 22 mm/Hg (30-55); VENOUS BLOOD PH 7.37 (7.32-7.43)
[2017-10-28 19:11] LABS: PARTIAL THROMBOPLASTIN TIME 32.4 Seconds (25.6-37.1); PROTHROMBIN TIME 11.4 Seconds (9.8-13.1); SQUAMOUS EPITHIAL < 1 /hpf (0-5); URINE BACTERIA OCC (<OCC); URINE BILIRUBIN NEGATIVE (NEGATIVE); URINE BLOOD NEGATIVE (NEGATIVE); URINE CLARITY SLIGHTY-CLOUDY (Clear); URINE COLOR YELLOW (YELLOW); URINE GLUCOSE (UA) NEG (Normal); URINE LEUKOCYTE ESTERASE MOD Leu/uL (Negative); URINE NITRATE NEGATIVE (NEGATIVE); URINE PROTEIN NEGATIVE (NEGATIVE); URINE UROBILINOGEN 0.2-1.0 mg/dL (0.2-1.0)
[2017-10-28 19:34] LABS: ALT/SGPT 97 U/L (9-52); AST/SGOT 55 U/L (14-36); BLOOD UREA NITROGEN 15 mg/dl (7-17); CALCIUM 9.9 mg/dL (8.4-10.2); GFR AFRICAN-AMERICAN > 60; GFR NON-AFRICAN AMERICAN > 60; MAGNESIUM 2.2 MG/DL (1.6-2.3)
[2017-10-28] MEDS ORDERED: Ciprofloxacin 400mg/200ml D5W 400 MG/200 ML BAG IV STA (19:53)
[2017-10-28] MEDS ORDERED: Ciprofloxacin 400mg/200ml D5W 400 MG/200 ML BAG IVPB ONE (20:41)
[2017-10-29] MEDS ORDERED: Magnesium Hydroxide Susp 30 ml UD PO PRN ×2 (04:30→05:14)
[2017-10-29] MEDS ORDERED: Alum-Mag Hydrox-Simethicone Susp (30 mL) PO PRN (05:14)
[2017-10-29] MEDS ORDERED: Sodium Chloride 0.9% 50 ML IV ONE (06:31)
[2017-10-29] MEDS ORDERED: Iodixanol 320 MG/ML 100 ML BOTTLE IV ONE (06:31)
--- NOTE | 2017-10-29 08:17 | CT ---
EXAM: CT Angiography Head With Intravenous Contrast CT Angiography Neck With Intravenous Contrast CLINICAL HISTORY: 77 years old, female; Signs and symptoms; Cognitive deficit; Type not specified; Patient HX: Poor historian; Additional info: R/O vbi TECHNIQUE: Axial computed tomographic angiography images of the head and neck with intravenous contrast using CT angiography protocol. All CT scans at this facility use one or more dose reduction techniques, viz.: automated exposure control; ma/kV adjustment per patient size (including targeted exams where dose is matched to indication; i.e. head); or iterative reconstruction technique. 1016 images are submitted. MIP reconstructed images were created and reviewed. Coronal and sagittal reformatted images were created and reviewed. CONTRAST: 90 mL of visipaque administered intravenously. COMPARISON: CT - HEAD W/O CONTRAST 2017-10-08 14:32 FINDINGS: HEAD: Right anterior cerebral artery: Unremarkable. No occlusion or significant stenosis. No aneurysm. Right middle cerebral artery: Unremarkable. No occlusion or significant stenosis. No aneurysm. Right posterior cerebral artery: Unremarkable. No occlusion or significant stenosis. No aneurysm. Left anterior cerebral artery: Unremarkable. No occlusion or significant stenosis. No aneurysm. Left middle cerebral artery: Unremarkable. No occlusion or significant stenosis. No aneurysm. Left posterior cerebral artery: Unremarkable. No occlusion or significant stenosis. No aneurysm. Basilar artery: Unremarkable. No occlusion or significant stenosis. No aneurysm. Brain: Cerebral and cerebellar volume loss. Patchy hypodensity is seen in the periventricular and subcortical white matter. Left occipital temporal region patchy hypodensity representing chronic ischemic change. No hemorrhage. Ventricles: Ventriculomegaly. Sinuses: The venous sinuses are patent. NECK: Right common carotid artery: Unremarkable. No significant stenosis. No dissection or occlusion. Right internal carotid artery: The right internal carotid artery is tortuous without significant stenosis. No dissection or occlusion. Right external carotid artery: Unremarkable. No occlusion. Right vertebral artery: Tortuous right vertebral artery. No significant stenosis. No dissection or occlusion. Left common carotid artery: Unremarkable. No significant stenosis. No dissection or occlusion. Left internal carotid artery: The left internal carotid artery is tortuous without significant stenosis. No dissection or occlusion. Left external carotid artery: Unremarkable. No occlusion. Left vertebral artery: Tortuous left vertebral artery. No significant stenosis. No dissection or occlusion. Other vasculature: Bovine aortic arch. Lung apices: Bilateral dependent upper lobe and superior segment of lower lobe infiltration. Correlation with patient's hydration status is recommended. HEAD and NECK: Bones/joints: No acute fracture. No dislocation. Soft tissues: Unremarkable. No mass. CAROTID STENOSIS REFERENCE USING NASCET CRITERIA: % ICA stenosis = (1 - narrowest ICA diameter/diameter of distal cervical ICA) x 100. Mild - <50% stenosis. Moderate - 50-69% stenosis. Severe - 70-94% stenosis. Near occlusion - 95-99% stenosis. Occluded - 100% stenosis. IMPRESSION: No acute findings.
--- NOTE | 2017-10-29 08:39 | RAD ---
HISTORY: near syncope COMPARISON: No prior. FINDINGS: LUNGS: No active pulmonary disease. PLEURA: No significant pleural effusion identified, no pneumothorax apparent. CARDIOVASCULAR: Normal. ATHEROSCLEROTIC AORTA. OSSEOUS STRUCTURES: No significant abnormalities. VISUALIZED UPPER ABDOMEN: Normal. OTHER FINDINGS: None. IMPRESSION: No active disease.
[2017-10-29] MEDS ORDERED: FENTANYL 25 MCG TD SCH (09:00)
[2017-10-29] MEDS ORDERED: Santyl Collagenase OINTMENT TOP SCH (09:00)
[2017-10-29] MEDS ORDERED: SILVER SULFADIAZINE 1% TOP SCH (09:00)
[2017-10-29] MEDS ORDERED: Enoxaparin 40 mg Syringe SC SCH (09:00)
[2017-10-29] MEDS ORDERED: PROTEIN HYDROLYS PO SCH (09:00)
[2017-10-29] MEDS ORDERED: POTASSIUM CHLORIDE 20 MEQ PO SCH (09:00)
[2017-10-29] MEDS ORDERED: Divalproex 125 mg Sprinkle Capsule PO SCH (09:00)
[2017-10-29] MEDS ORDERED: LACTOBACILLUS ACIDOPHILUS PO SCH (09:00)
[2017-10-29] MEDS ORDERED: AMINO ACIDS PO SCH (09:00)
[2017-10-29] MEDS ORDERED: Patient's Own Med (Multivitamin [Multivitamins] 1 TAB) PO SCH (09:00)
[2017-10-29] MEDS: Divalproex 125 mg Sprinkle Capsule PO SCH ×2 (09:18→18:25)
[2017-10-29] MEDS: Lactobacillus Acidophilus 500 MU Cap PO SCH ×2 (09:18→16:20)
[2017-10-29] MEDS: Enoxaparin 40 mg Syringe SC SCH (09:19)
[2017-10-29] MEDS: Silver Sulfadiazine 1% Cream (20 gm) TOP SCH (09:20)
[2017-10-29] MEDS: Multivitamin With Minerals Tab PO SCH (09:22)
[2017-10-29] MEDS ORDERED: Potassium Chloride 20 mEq ER Tab PO ONE (09:22)
[2017-10-29] MEDS: Potassium Chloride 20 mEq ER Tab PO SCH (09:22)
--- NOTE | 2017-10-29 14:14 | HP ---
CHIEF COMPLAINT: The patient in fast track. HISTORY OF PRESENT ILLNESS: This is a 77-year-old female who was in alf getting her rehab done and while in physical therapy department while sitting in the chair, the patient suddenly was noticed to have passed out and the patient recovered spontaneously. The patient was also found to have low blood pressure, so the patient was sent to the hospital and was admitted for further management. PAST MEDICAL HISTORY: Significant for chronic arthritis, dyspepsia, and dementia. PAST SURGICAL HISTORY: Unremarkable. PERSONAL HISTORY: The patient is currently nonsmoker and nondrinker. No substance abuse. MEDICATION: The patient is on multiple medications, which is as per reconciliation, which are reviewed and ordered, it included Tylenol, Maalox, , vitamin C, , Depakote, Colace, Lovenox, Fentanyl, Probiotics, Tradjenta, milk of magnesia, multivitamin, and potassium chloride. ALLERGIES: THE PATIENT IS NOT ALLERGIC TO ANY MEDICATIONS. REVIEW OF SYSTEMS: Positive for loss of consciousness and passing out. Review of systems was otherwise negative for headache, dizziness, chest pain, shortness of breath, nausea, vomiting, diarrhea, constipation, any new joint or extremity pain, although the patient is not a good historian and review of systems and history is unreliable, but it is as mentioned above. FAMILY HISTORY: Noncontributory. PHYSICAL EXAMINATION: GENERAL: A well-built, well-nourished 77-year-old female in no acute distress. VITAL SIGNS: Temperature 98.1, pulse 94, respirations 16, blood pressure 142/84, and saturations 97%. HEENT: Pupils are reacting to light. No JVD. No thyromegaly. No lymphadenopathy. No nystagmus. Normocephalic, atraumatic skull. HEART: S1 and S2, normal and regular. No significant murmur, gallop or rub is heard. LUNGS: Shows good bilateral air exchange. No rales or rhonchi. ABDOMEN: Soft and nontender. No organomegaly. No fluid. Bowel sounds are present and normal. EXTREMITIES: No edema. No calf swelling. No tenderness. No acute ischemic. 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 LABORATORY DATA: Available diagnostic data reviewed. WBC 7.2, hemoglobin 12, hematocrit 36.8, and platelets 394. Sodium 140, potassium 4.2, chloride 103, bicarbonate 26, BUN 15, and creatinine 0.6. AST 55 and ALT of 97. Urinalysis is remarkable. CAT scan of the head was unremarkable. CT was unremarkable. Chest x-ray was clear. IMPRESSION: Syncope,diabetes, and dementia. PLAN: As above, case and plan discussed with the patient. Nader Verma MD
--- NOTE | 2017-10-29 14:52 | CP.PCM.CON ---
History of Present Illness - History of Present Illness History of Present Illness: Mrs. Yañez is a 77-year-old woman who was brought in to the ED by EMS for a near-syncopal episode. She was hypotensive and was given IVF. The patient is well known to me, since I saw her during her last admission. At that time, she had presented after her neighbor called when he found her on the floor of her home, confused, weak and covered in urine and feces. She had leukocytosis and elevated CK levels. The patient was then discharged to a half-way after being started on depakote for seizures due to EEG showing focal slowing. She is back today after this episodes that was described by the physical therapy staff as an episode of unresponsiveness and staring without syncope. She then was able to respond, but was confused. It lasted for about 5 minutes. Review of Systems - Review of Systems All systems: reviewed and no additional remarkable complaints except Past Patient History - Past Medical History & Family History Past Medical History?: No - Past Social History Smoking Status: Never Smoked - ENDOCRINE/METABOLIC Hx Diabetes Mellitus Type 2: Yes (pt thinks she may be) - MUSCULOSKELETAL/RHEUMATOLOGICAL Hx Falls: Yes - GASTROINTESTINAL Hx Gastroesophageal Reflux: Yes - GENITOURINARY/GYNECOLOGICAL Hx Urinary Tract Infection: Yes - PSYCHIATRIC Hx Substance Use: No (unobtainable, pt lethargic) - SURGICAL HISTORY Hx Surgeries: No (unobtainable, pt lethargic) Meds Allergies/Adverse Reactions: Allergies Allergy/AdvReac Type Severity Reaction Status Date / Time No Known Allergies Allergy Verified 10/29/17 08:50 - Medications Medications: Current Medications Acetaminophen (Tylenol 325mg Tab) 650 mg PO Q4 PRN PRN Reason: Pain, moderate (4-7) Al Hydrox/Mg Hydrox/Simethicone (Maalox Plus 30 Ml) 30 ml PO Q4 PRN PRN Reason: Indigestion / Heartburn Divalproex Sodium (Depakote Sprinkles) 125 mg PO BID [facility] Last Admin: 10/29/17 09:18 Dose: 125 mg Enoxaparin Sodium (Lovenox) 40 mg SC DAILY [facility] PRN Reason: Protocol Last Admin: 10/29/17 09:19 Dose: 40 mg Fentanyl (Duragesic) 1 patch TD Q3D [facility] Last Admin: 10/29/17 09:48 Dose: 1 patch Home Med (Amino Acids/Protein Hydrolys [Pro-Stat Profile Liquid Packet]) 30 ml PO TID [facility] Ceftriaxone Sodium 2 gm/ (Sodium Chloride) 100 mls @ 100 mls/hr IVPB DAILY [facility] PRN Reason: Protocol Lactobacillus Acidophilus (Bacid Acidophilus) 1 cap PO BID [facility] Last Admin: 10/29/17 09:18 Dose: 1 cap Magnesium Hydroxide (Milk Of Magnesia) 30 ml PO DAILY PRN PRN Reason: Constipation Multivitamins/Minerals (Therapeutic-M Tab) 1 tab PO DAILY [facility] Last Admin: 10/29/17 09:22 Dose: 1 tab Potassium Chloride (K-Dur 20 Meq Er Tab) 20 meq PO DAILY [facility] Last Admin: 10/29/17 09:22 Dose: 20 meq Silver Sulfadiazine (Silvadene 1% 20 Gm) 1 ea TOP DAILY [facility] Last Admin: 10/29/17 09:20 Dose: 1 % Sitagliptin Phosphate (Januvia) 100 mg PO DAILY [facility] Last Admin: 10/29/17 09:19 Dose: 100 mg Physical Exam - Constitutional Appears: Well, Confused - Head Exam Head Exam: ATRAUMATIC, NORMAL INSPECTION, NORMOCEPHALIC - Eye Exam Eye Exam: EOMI, Normal appearance, PERRL - ENT Exam ENT Exam: Mucous Membranes Moist, Normal Exam - Neck Exam Neck exam: Positive for: Normal Inspection - Respiratory Exam Respiratory Exam: Clear to Auscultation Bilateral, NORMAL BREATHING PATTERN - Cardiovascular Exam Cardiovascular Exam: REGULAR RHYTHM, +S1, +S2 - GI/Abdominal Exam GI & Abdominal Exam: Normal Bowel Sounds, Soft. absent: Tenderness - Neurological Exam Neurological exam: Abnormal Gait, Altered, CN II-XII Intact, Reflexes Normal Additional comments: Oriented only to person, decreased attention span, decreased memory and fund of knowledge. Follows simple commands and moves all extremities. Reflexes were normal with muted plantar responses. Results - Vital Signs Recent Vital Signs: Last Vital Signs Temp 98.1 F 10/29/17 14:00 Pulse 109 H 10/29/17 14:00 Resp 16 10/29/17 14:00 BP 132/86 10/29/17 14:00 Pulse Ox 98 10/29/17 14:00 - Labs Result Diagrams: 10/28/17 18:28 10/28/17 18:28 Labs: Laboratory Results - last 24 hr 10/28/17 10/28/17 10/28/17 18:00 18:28 18:28 WBC 7.2 RBC 4.00 Hgb 12.0 Hct 36.8 MCV 91.9 MCH 30.1 MCHC 32.7 L RDW 13.8 Plt Count 394 D MPV 8.5 Neut % (Auto) 68.3 Lymph % (Auto) 17.3 L [place] % (Auto) 11.5 H Eos % (Auto) 2.0 Baso % (Auto) 0.9 Neut # (Auto) 5.0 Lymph # (Auto) 1.3 [place] # (Auto) 0.8 Eos # (Auto) 0.1 Baso # (Auto) 0.1 PT INR APTT pO2 VBG pH VBG pCO2 VBG HCO3 VBG Total CO2 VBG O2 Sat (Calc) VBG Base Excess VBG Potassium Glucose Lactate FiO2 Sodium 140 Potassium 4.2 Chloride 103 Carbon Dioxide 26 Anion Gap 15 BUN 15 Creatinine 0.6 L Est GFR ( Amer) > 60 Est GFR (Non-Af Amer) > 60 POC Glucose (mg/dL) 106 Random Glucose 100 Calcium 9.9 Phosphorus 3.3 Magnesium 2.2 Total Bilirubin 0.6 AST 55 H D ALT 97 H D Alkaline Phosphatase 118 Total Creatine Kinase 27 L Troponin I < 0.0120 Total Protein 6.2 L Albumin 3.0 L Globulin 3.2 Albumin/Globulin Ratio 1.0 Venous Blood Potassium Urine Color Urine Clarity Urine pH Ur Specific [place] Urine Protein Urine Glucose (UA) Urine Ketones Urine Blood Urine Nitrate Urine Bilirubin Urine Urobilinogen Ur Leukocyte Esterase Urine RBC (Auto) Urine Microscopic WBC Ur Squamous Epith Cells Urine Bacteria Hyaline Casts Urine Yeast (Budding) Influenza Typ A,B (EIA) Blood Type Antibody Screen BBK History Checked 10/28/17 10/28/17 10/28/17 18:28 18:28 18:28 WBC RBC Hgb Hct MCV MCH MCHC RDW Plt Count MPV Neut % (Auto) Lymph % (Auto) [place] % (Auto) Eos % (Auto) Baso % (Auto) Neut # (Auto) Lymph # (Auto) [place] # (Auto) Eos # (Auto) Baso # (Auto) PT 11.4 INR 1.0 APTT 32.4 pO2 VBG pH VBG pCO2 VBG HCO3 VBG Total CO2 VBG O2 Sat (Calc) VBG Base Excess VBG Potassium Glucose Lactate FiO2 Sodium Potassium Chloride Carbon Dioxide Anion Gap BUN Creatinine Est GFR ( Amer) Est GFR (Non-Af Amer) POC Glucose (mg/dL) Random Glucose Calcium Phosphorus Magnesium Total Bilirubin AST ALT Alkaline Phosphatase Total Creatine Kinase Troponin I Total Protein Albumin Globulin Albumin/Globulin Ratio Venous Blood Potassium Urine Color Urine Clarity Urine pH Ur Specific [place] Urine Protein Urine Glucose (UA) Urine Ketones Urine Blood Urine Nitrate Urine Bilirubin Urine Urobilinogen Ur Leukocyte Esterase Urine RBC (Auto) Urine Microscopic WBC Ur Squamous Epith Cells Urine Bacteria Hyaline Casts Urine Yeast (Budding) Influenza Typ A,B (EIA) Negative for flu a/b Blood Type O POSITIVE Antibody Screen Negative BBK History Checked No verified bt 10/28/17 10/28/17 18:28 18:30 WBC RBC Hgb Hct MCV MCH MCHC RDW Plt Count MPV Neut % (Auto) Lymph % (Auto) [place] % (Auto) Eos % (Auto) Baso % (Auto) Neut # (Auto) Lymph # (Auto) [place] # (Auto) Eos # (Auto) Baso # (Auto) PT INR APTT pO2 22 L VBG pH 7.37 VBG pCO2 53 VBG HCO3 26.4 VBG Total CO2 32.2 H VBG O2 Sat (Calc) 43.5 VBG Base Excess 4.0 H VBG Potassium 4.0 Glucose 101 Lactate 1.4 FiO2 21.0 Sodium 138.0 Potassium Chloride 104.0 Carbon Dioxide Anion Gap BUN Creatinine Est GFR ( Amer) Est GFR (Non-Af Amer) POC Glucose (mg/dL) Random Glucose Calcium Phosphorus Magnesium Total Bilirubin AST ALT Alkaline Phosphatase Total Creatine Kinase Troponin I Total Protein Albumin Globulin Albumin/Globulin Ratio Venous Blood Potassium 4.0 Urine Color Yellow Urine Clarity Slighty-cloudy Urine pH 6.0 Ur Specific [place] 1.013 Urine Protein Negative Urine Glucose (UA) Neg Urine Ketones Negative Urine Blood Negative Urine Nitrate Negative Urine Bilirubin Negative Urine Urobilinogen 0.2-1.0 Ur Leukocyte Esterase Mod Urine RBC (Auto) 3 Urine Microscopic WBC 21 H Ur Squamous Epith Cells < 1 Urine Bacteria Occ H Hyaline Casts 3-5 H Urine Yeast (Budding) Rare H Influenza Typ A,B (EIA) Blood Type Antibody Screen BBK History Checked - Imaging and Cardiology CT scan - head Status: Image reviewed by me, Report reviewed by me (No acute findings. ) Assessment & Plan (1) Observed seizure-like activity Assessment and Plan: Will check the patient's depakote level and load if low. Will obtain EEG for one hour awake and drowsy. Continue treatment of underlying infection. DVT Px , PT/OT and case management consult. Continue fluids and home medications. Thank you for this consultation. Status: Acute
[2017-10-29] MEDS: cefTRIAXone 2 GM in Sodium Chloride 0.9% 100 ML IVPB SCH (16:19)
--- NOTE | 2017-10-30 08:21 | RAD ---
HISTORY: Patient pulled PICC line from Right arm COMPARISON: 10/28/2027. FINDINGS: The right PICC line is not visualized. LUNGS: The lungs are well inflated and clear. PLEURA: No significant pleural effusion identified, no pneumothorax apparent. CARDIOVASCULAR: Normal. OSSEOUS STRUCTURES: No significant abnormalities. VISUALIZED UPPER ABDOMEN: Normal. OTHER FINDINGS: None. IMPRESSION: The right PICC line is not visualized. No acute findings.
--- NOTE | 2017-10-30 09:11 | CARD ---
APPROVED REPORT EKG Measurement Heart [id number] <Conclusion> Normal sinus rhythm Normal ECG
[2017-10-30] MEDS: Enoxaparin 40 mg Syringe SC SCH (10:12)
[2017-10-30] MEDS: Multivitamin With Minerals Tab PO SCH (10:13)
[2017-10-30] MEDS: Divalproex 125 mg Sprinkle Capsule PO SCH (10:13)
[2017-10-30] MEDS: Potassium Chloride 20 mEq ER Tab PO SCH (10:15)
[2017-10-30] MEDS: Lactobacillus Acidophilus 500 MU Cap PO SCH ×2 (10:15→17:52)
[2017-10-30] MEDS: Silver Sulfadiazine 1% Cream (20 gm) TOP SCH (10:16)
[2017-10-30] MEDS ORDERED: Valproate 1,000 MG in Sodium Chloride 0.9% 100 ML IVPB ONE (10:28)
--- NOTE | 2017-10-30 10:34 | CP.PCM.PN ---
Subjective - Date & Time of Evaluation Date of Evaluation: 10/30/17 Time of Evaluation: 10:29 - Subjective Subjective: Ms. Yañez was seen and examined at the bedside. She is awake, confused able to feed herself with assistance. She is able to move her extremities spontaneously but complains of pain with any tactile stimuli. She is unable to follow simple commands. Her CTA of the head and neck showed no acute findings. Valproic level <10. There was no untoward events overnight. Objective - Vital Signs/Intake and Output Vital Signs (last 24 hours): Temp Pulse Resp BP Pulse Ox 98.8 F 82 20 145/91 H 97 10/30/17 08:00 10/30/17 08:00 10/30/17 08:00 10/30/17 08:00 10/30/17 08:00 - Medications Medications: Current Medications Acetaminophen (Tylenol 325mg Tab) 650 mg PO Q4 PRN PRN Reason: Pain, moderate (4-7) Al Hydrox/Mg Hydrox/Simethicone (Maalox Plus 30 Ml) 30 ml PO Q4 PRN PRN Reason: Indigestion / Heartburn Enoxaparin Sodium (Lovenox) 40 mg SC DAILY [facility] PRN Reason: Protocol Last Admin: 10/30/17 10:12 Dose: 40 mg Fentanyl (Duragesic) 1 patch TD Q3D [facility] Last Admin: 10/29/17 09:48 Dose: 1 patch Home Med (Amino Acids/Protein Hydrolys [Pro-Stat Profile Liquid Packet]) 30 ml PO TID [facility] Ceftriaxone Sodium 2 gm/ (Sodium Chloride) 100 mls @ 100 mls/hr IVPB DAILY [facility] PRN Reason: Protocol Last Admin: 10/29/17 16:19 Dose: 100 mls/hr Valproate Sodium 1,000 mg/ (Sodium Chloride) 110 mls @ 0 mls/hr IVPB ONCE ONE PRN Reason: As Directed Stop: 10/30/17 10:29 Lactobacillus Acidophilus (Bacid Acidophilus) 1 cap PO BID [facility] Last Admin: 10/30/17 10:15 Dose: 1 cap Magnesium Hydroxide (Milk Of Magnesia) 30 ml PO DAILY [facility] PRN Reason: Constipation Multivitamins/Minerals (Therapeutic-M Tab) 1 tab PO DAILY [facility] Last Admin: 10/30/17 10:13 Dose: 1 tab Potassium Chloride (K-Dur 20 Meq Er Tab) 20 meq PO DAILY [facility] Last Admin: 10/30/17 10:15 Dose: 20 meq Silver Sulfadiazine (Silvadene 1% 20 Gm) 1 ea TOP DAILY [facility] Last Admin: 10/30/17 10:16 Dose: 1 % Sitagliptin Phosphate (Januvia) 100 mg PO DAILY [facility] Last Admin: 10/30/17 10:15 Dose: 100 mg Valproate Sodium (Depakene Oral Soln) 500 mg PO BID [facility] - Labs Labs: 10/28/17 18:28 10/28/17 18:28 PT 11.4 Seconds (9.8-13.1) 10/28/17 18:28 INR 1.0 (0.9-1.2) 10/28/17 18:28 APTT 32.4 Seconds (25.6-37.1) 10/28/17 18:28 - Constitutional Appears: No Acute Distress - Head Exam Head Exam: NORMAL INSPECTION - Neurological Exam Neurological Exam: Awake Neuro motor strength exam: Left Upper Extremity: 4, Right Upper Extremity: 4, Left Lower Extremity: 2/1, Right Lower Extremity: 2/1 Additional comments: Oriented only to person, unable to follow simple commands and moves all extremities. Reflexes were normal with muted plantar responses. Assessment and Plan (1) Observed seizure-like activity Assessment & Plan: Case discussed with Dr. Sarah, continue all current medical regimen. Recommend to treat any underlying infection. Recommend Valproate 1000 mg IV for one dose and increase depakote from 125 mg PO BID to 500 mg PO BID. Recommend valproic level monitoring. Pending EEG. Status: Acute
--- NOTE | 2017-10-30 11:01 | CP.PCM.CON ---
History of Present Illness - History of Present Illness History of Present Illness: This 77-year-old female was brought to the emergency room when she became unresponsive while in the chair during physical therapy at a rehabilitation center. The patient was found to be hypotensive according to emergency room notes and was given intravenous fluids on her way to the hospital. The patient is quite confused regarding events surrounding her hospitalization. She is not able to say if she lives at home or in a custodial and from where she was brought to the hospital. She was recently hospitalized at this institution and her chart from her previous hospitalization and the admitting notes from the emergency room and the neurologists notes were reviewed. There is no prior history of cardiac illness in this patient and the patient was not taking any antihypertensives. There is no history of congestive heart failure documented. During her last hospitalization the patient was brought here when she was found on the more and a large necrotic ulcer on her right hip was divided on multiple occasions and is still being treated with antibiotic. Workup involving an MRI of the brain and EEG have indicated the possibility of normal pressure hydrocephalus and seizure disorder. Accordingly the patient is being treated with antiseizure medications. Notes of her prior hospitalization also indicated periods of confusion and disorientation. Physical examination shows a thin built elderly female who is lying virtually flat in bed and admits that she is quite free of any discomfort. She is able to make eye contact and answers simple questions readily. She still does not quite recall circumstances surrounding her present hospitalization. Her heart rate was 74 bpm regular and her blood pressure was 122/74 mmHg while lying flat in bed. Attempts to sit her up were extremely painful and the patient requested that she be put down back in bed immediately. Orthostatic blood pressure recordings could not be obtained. Her jugular venous pressure was not elevated and there was no edema over lower extremity. The pedal pulses were feeble but distinct present. There were no carotid bruits. The first and second heart sounds were normal. There was a faint apical systolic murmur. There was no gallop rhythm. There were no rales. Her abdomen was soft liver and spleen are not palpable. A large ulcer was evident with dressing on it on her right hip. Her electrocardiogram in the emergency room and again this morning showed sinus rhythm with nonspecific ST changes with no Q waves. Her lab data showed normal WBC count as well as hemoglobin and hematocrit and platelet count. Her BUN/creatinine and electrolytes were normal. Her liver profile was mildly abnormal. Impression: Near syncopal episode possible orthostatic hypotension. The patient should be evaluated for orthostatic hypotension. I have instructed the nurse to get her blood pressure when physical therapy gets the patient to sit up. Otherwise no cardiovascular abnormality has been detected at this juncture. 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 Abnormal EEG findings suggestive of seizure disorder. Large necrotic ulcer on the right hip. Past Patient History - Past Medical History & Family History Past Medical History?: Yes - Past Social History Smoking Status: Never Smoked - CARDIAC Hx Cardiac Disorders: No - PULMONARY Hx Respiratory Disorders: No - NEUROLOGICAL Hx Neurological Disorder: No - HEENT Hx HEENT Problems: No - RENAL Hx Chronic Kidney Disease: No - ENDOCRINE/METABOLIC Hx Diabetes Mellitus Type 2: Yes (pt thinks she may be) - HEMATOLOGICAL/ONCOLOGICAL Hx Blood Disorders: No - INTEGUMENTARY Hx Dermatological Problems: No - MUSCULOSKELETAL/RHEUMATOLOGICAL Hx Arthritis: Yes Hx Falls: Yes - GASTROINTESTINAL Hx Gastroesophageal Reflux: Yes - GENITOURINARY/GYNECOLOGICAL Hx Urinary Tract Infection: Yes - PSYCHIATRIC Hx Substance Use: No (unobtainable, pt lethargic) Other/Comment: Dementia - SURGICAL HISTORY Hx Surgeries: No (unobtainable, pt lethargic) - ANESTHESIA Hx Anesthesia: No Hx Anesthesia Reactions: No Hx Malignant Hyperthermia: No Has any member of the family had a problem w/ anesthesia?: No Meds Allergies/Adverse Reactions: Allergies Allergy/AdvReac Type Severity Reaction Status Date / Time No Known Allergies Allergy Verified 10/29/17 08:50 - Medications Medications: Current Medications Acetaminophen (Tylenol 325mg Tab) 650 mg PO Q4 PRN PRN Reason: Pain, moderate (4-7) Al Hydrox/Mg Hydrox/Simethicone (Maalox Plus 30 Ml) 30 ml PO Q4 PRN PRN Reason: Indigestion / Heartburn Enoxaparin Sodium (Lovenox) 40 mg SC DAILY [facility] PRN Reason: Protocol Last Admin: 10/30/17 10:12 Dose: 40 mg Fentanyl (Duragesic) 1 patch TD Q3D [facility] Last Admin: 10/29/17 09:48 Dose: 1 patch Home Med (Amino Acids/Protein Hydrolys [Pro-Stat Profile Liquid Packet]) 30 ml PO TID [facility] Ceftriaxone Sodium 2 gm/ (Sodium Chloride) 100 mls @ 100 mls/hr IVPB DAILY [facility] PRN Reason: Protocol Last Admin: 10/29/17 16:19 Dose: 100 mls/hr Valproate Sodium 1,000 mg/ (Sodium Chloride) 110 mls @ 110 mls/hr IVPB ONCE ONE PRN Reason: As Directed Stop: 10/30/17 11:27 Lactobacillus Acidophilus (Bacid Acidophilus) 1 cap PO BID [facility] Last Admin: 10/30/17 10:15 Dose: 1 cap Magnesium Hydroxide (Milk Of Magnesia) 30 ml PO DAILY [facility] PRN Reason: Constipation Multivitamins/Minerals (Therapeutic-M Tab) 1 tab PO DAILY [facility] Last Admin: 10/30/17 10:13 Dose: 1 tab Potassium Chloride (K-Dur 20 Meq Er Tab) 20 meq PO DAILY [facility] Last Admin: 10/30/17 10:15 Dose: 20 meq Silver Sulfadiazine (Silvadene 1% 20 Gm) 1 ea TOP DAILY [facility] Last Admin: 10/30/17 10:16 Dose: 1 % Sitagliptin Phosphate (Januvia) 100 mg PO DAILY [facility] Last Admin: 10/30/17 10:15 Dose: 100 mg Valproate Sodium (Depakene Oral Soln) 500 mg PO BID [facility] Results - Vital Signs Recent Vital Signs: Last Vital Signs Temp 98.8 F 10/30/17 08:00 Pulse 82 10/30/17 08:00 Resp 20 10/30/17 08:00 BP 145/91 H 10/30/17 08:00 Pulse Ox 97 10/30/17 08:00 - Labs Result Diagrams: 10/28/17 18:28 10/28/17 18:28 Labs: Laboratory Results - last 24 hr 10/29/17 20:30 Valproic Acid < 10.0 L
[2017-10-30] MEDS: cefTRIAXone 2 GM in Sodium Chloride 0.9% 100 ML IVPB SCH (13:55)
[2017-10-30] MEDS: Santyl Collagenase OINTMENT TOP SCH (15:00)
[2017-10-30] MEDS: Valproic Acid 250 mg/5 ml UD Cup PO SCH (17:52)
--- NOTE | 2017-10-30 20:10 | CP.PCM.PN ---
Subjective - Date & Time of Evaluation Date of Evaluation: 10/30/17 Time of Evaluation: 11:00 - Subjective Subjective: Patient is much more awake today Has no fever Has no chest pain Wound care nurse on board for decubiti care Recent labs showed normal CBC and CMP. Objective - Vital Signs/Intake and Output Vital Signs (last 24 hours): Temp Pulse Resp BP Pulse Ox 97.5 F L 93 H 20 112/74 95 10/30/17 19:18 10/30/17 19:18 10/30/17 19:18 10/30/17 19:18 10/30/17 19:18 - Medications Medications: Current Medications Acetaminophen (Tylenol 325mg Tab) 650 mg PO Q4 PRN PRN Reason: Pain, moderate (4-7) Al Hydrox/Mg Hydrox/Simethicone (Maalox Plus 30 Ml) 30 ml PO Q4 PRN PRN Reason: Indigestion / Heartburn Collagenase (Santyl) 1 applic TOP DAILY [facility] Last Admin: 10/30/17 15:00 Dose: 1 applic Enoxaparin Sodium (Lovenox) 40 mg SC DAILY [facility] PRN Reason: Protocol Last Admin: 10/30/17 10:12 Dose: 40 mg Fentanyl (Duragesic) 1 patch TD Q3D [facility] Last Admin: 10/29/17 09:48 Dose: 1 patch Ceftriaxone Sodium 2 gm/ (Sodium Chloride) 100 mls @ 100 mls/hr IVPB DAILY [facility] PRN Reason: Protocol Last Admin: 10/30/17 13:55 Dose: 100 mls/hr Lactobacillus Acidophilus (Bacid Acidophilus) 1 cap PO BID [facility] Last Admin: 10/30/17 17:52 Dose: 1 cap Magnesium Hydroxide (Milk Of Magnesia) 30 ml PO DAILY [facility] PRN Reason: Constipation Multivitamins/Minerals (Therapeutic-M Tab) 1 tab PO DAILY [facility] Last Admin: 10/30/17 10:13 Dose: 1 tab Potassium Chloride (K-Dur 20 Meq Er Tab) 20 meq PO DAILY [facility] Last Admin: 10/30/17 10:15 Dose: 20 meq Silver Sulfadiazine (Silvadene 1% 20 Gm) 1 ea TOP DAILY [facility] Last Admin: 10/30/17 10:16 Dose: 1 % Sitagliptin Phosphate (Januvia) 100 mg PO DAILY [facility] Last Admin: 10/30/17 10:15 Dose: 100 mg Valproate Sodium (Depakene Oral Soln) 500 mg PO BID [facility] Last Admin: 10/30/17 17:52 Dose: 500 mg - Labs Labs: 10/28/17 18:28 18 18:28 PT 11.4 Seconds (9.8-13.1) 18 18:28 INR 1.0 (0.9-1.2) 10/28/17 18:28 APTT 32.4 Seconds (25.6-37.1) 10/28/17 18:28 - Head Exam Head Exam: NORMAL INSPECTION - Eye Exam Eye Exam: Normal appearance - ENT Exam ENT Exam: Mucous Membranes Moist - Respiratory Exam Respiratory Exam: Clear to Ausculation Bilateral - Cardiovascular Exam Cardiovascular Exam: REGULAR RHYTHM - GI/Abdominal Exam GI & Abdominal Exam: Normal Bowel Sounds Assessment and Plan (1) UTI (urinary tract infection) Status: Acute (2) Cellulitis Status: Acute (3) Syncope Status: Acute - Assessment and Plan (Free Text) Plan: Cont meds cont tx wound care start Phsy therapy
--- NOTE | 2017-10-30 21:28 | CARD ---
APPROVED REPORT EKG Measurement Heart [id number] <Conclusion> Normal sinus rhythm Normal ECG
[2017-10-31] MEDS: Lactobacillus Acidophilus 500 MU Cap PO SCH ×2 (09:33→16:19)
[2017-10-31] MEDS: Multivitamin With Minerals Tab PO SCH (09:34)
[2017-10-31] MEDS: Santyl Collagenase OINTMENT TOP SCH (09:35)
[2017-10-31] MEDS: Potassium Chloride 20 mEq ER Tab PO SCH (09:35)
[2017-10-31] MEDS: Enoxaparin 40 mg Syringe SC SCH (09:35)
[2017-10-31] MEDS: Silver Sulfadiazine 1% Cream (20 gm) TOP SCH (09:37)
[2017-10-31] MEDS: cefTRIAXone 2 GM in Sodium Chloride 0.9% 100 ML IVPB SCH (09:38)
[2017-10-31] MEDS: Valproic Acid 250 mg/5 ml UD Cup PO SCH ×2 (11:32→16:22)
--- NOTE | 2017-10-31 13:08 | CP.PCM.DIS ---
Provider - Provider Date of Admission: 10/29/17 21:19 Attending physician: Elvin Fox MD Consults: Cardiology Neurology Wound Care Time Spent in preparation of Discharge (in minutes): 30 Diagnosis - Discharge Diagnosis (1) Observed seizure-like activity Status: Acute Comment: Acute on chronic Seizure disorder. Valproic acid level low and increased during admission (2) UTI (urinary tract infection) Status: Acute Comment: Stable. S/P Rocephin. DC on PO Cipro (3) Ulcer Status: Chronic Comment: Chronic. C/w management at [facility] Course - Lab Results Lab Results: Micro Results 10/28/17 18:28 Urine,Clean Catch Urine Culture - Final Enterobacter Cloacae Ssp Cloac 10/28/17 18:28 Blood-Venous Blood Culture - Preliminary NO GROWTH AFTER 48 HOURS 10/28/17 18:28 Blood-Venous Blood Culture - Preliminary NO GROWTH AFTER 48 HOURS Most Recent Lab Values WBC 7.2 K/uL (4.8-10.8) 10/28/17 18:28 RBC 4.00 Mil/uL (3.80-5.20) 10/28/17 18:28 Hgb 12.0 g/dL (12.0-16.0) 10/28/17 18:28 Hct 36.8 % (34.0-47.0) 10/28/17 18:28 MCV 91.9 fl (81.0-99.0) 10/28/17 18:28 MCH 30.1 pg (27.0-31.0) 10/28/17 18:28 MCHC 32.7 g/dL (33.0-37.0) L 10/28/17 18:28 RDW 13.8 % (11.5-14.5) 10/28/17 18:28 Plt Count 394 K/uL (130-400) D 10/28/17 18:28 MPV 8.5 fl (7.2-11.7) 10/28/17 18:28 Neut % (Auto) 68.3 % (50.0-75.0) 10/28/17 18:28 Lymph % (Auto) 17.3 % (20.0-40.0) L 10/28/17 18:28 Teller % (Auto) 11.5 % (0.0-10.0) H 10/28/17 18:28 Eos % (Auto) 2.0 % (0.0-4.0) 10/28/17 18:28 Baso % (Auto) 0.9 % (0.0-2.0) 10/28/17 18:28 Neut # (Auto) 5.0 K/uL (1.8-7.0) 10/28/17 18:28 Lymph # (Auto) 1.3 K/uL (1.0-4.3) 10/28/17 18:28 Teller # (Auto) 0.8 K/uL (0.0-0.8) 10/28/17 18:28 Eos # (Auto) 0.1 K/uL (0.0-0.7) 10/28/17 18:28 Baso # (Auto) 0.1 K/uL (0.0-0.2) 10/28/17 18: PT 11.4 Seconds (9.8-13.1) 10/28/17 18: INR 1.0 (0.9-1.2) 10/28/17 18: APTT 32.4 Seconds (25.6-37.1) 10/28/17 18:28 pO2 22 mm/Hg (30-55) L 10/28/17 18:30 VBG pH 7.37 (7.32-7.43) 10/28/17 18:30 VBG pCO2 53 mmHg (40-60) 10/28/17 18:30 VBG HCO3 26.4 mmol/L 10/28/17 18:30 VBG Total CO2 32.2 mmol/L (22-28) H 10/28/17 18:30 VBG O2 Sat (Calc) 43.5 % (40-65) 10/28/17 18:30 VBG Base Excess 4.0 mmol/L (0.0-2.0) H 10/28/17 18:30 VBG Potassium 4.0 mmol/L (3.6-5.2) 10/28/17 18:30 Sodium 138.0 mmol/L (132-148) 10/28/17 18:30 Chloride 104.0 mmol/L (98-107) 10/28/17 18:30 Glucose 101 mg/dL (65-105) 10/28/17 18:30 Lactate 1.4 mmol/L (0.7-2.1) 10/28/17 18:30 FiO2 21.0 % 10/28/17 18:30 Sodium 140 mmol/l (132-148) 10/28/17 18:28 Potassium 4.2 MMOL/L (3.6-5.0) 10/28/17 18:28 Chloride 103 mmol/L (98-107) 10/28/17 18:28 Carbon Dioxide 26 mmol/L (22-30) 10/28/17 18:28 Anion Gap 15 (10-20) 10/28/17 18:28 BUN 15 mg/dl (7-17) 10/28/17 18:28 Creatinine 0.6 mg/dl (0.7-1.2) L 10/28/17 18:28 Est GFR ( Amer) > 60 10/28/17 18:28 Est GFR (Non-Af Amer) > 60 10/28/17 18:28 POC Glucose (mg/dL) 106 mg/dL (65-110) 10/28/17 18:00 Random Glucose 100 mg/dL (65-105) 10/28/17 18:28 Calcium 9.9 mg/dL (8.4-10.2) 10/28/17 18:28 Phosphorus 3.3 mg/dl (2.5-4.5) 10/28/17 18:28 Magnesium 2.2 MG/DL (1.6-2.3) 10/28/17 18:28 Total Bilirubin 0.6 mg/dl (0.2-1.3) 10/28/17 18:28 AST 55 U/L (14-36) H D 10/28/17 18:28 ALT 97 U/L (9-52) H D 10/28/17 18:28 Alkaline Phosphatase 118 U/L (38-126) 10/28/17 18:28 Total Creatine Kinase 27 U/L (30-135) L 10/28/17 18:28 Troponin I < 0.0120 ng/mL (0.00-0.120) 10/28/17 18:28 Total Protein 6.2 G/DL (6.3-8.2) L 10/28/17 18:28 Albumin 3.0 g/dL (3.5-5.0) L 10/28/17 18:28 Globulin 3.2 gm/dL (2.2-3.9) 10/28/17 18:28 Albumin/Globulin Ratio 1.0 (1.0-2.1) 10/28/17 18:28 Venous Blood Potassium 4.0 mmol/L (3.6-5.2) 10/28/17 18:30 Urine Color Yellow (YELLOW) 10/28/17 18:28 Urine Clarity Slighty-cloudy (Clear) 10/28/17 18:28 Urine pH 6.0 (5.0-8.0) 10/28/17 18:28 Ur Specific [place] 1.013 (1.003-1.030) 10/28/17 18:28 Urine Protein Negative mg/dL (NEGATIVE) 10/28/17 18:28 Urine Glucose (UA) Neg mg/dL (Normal) 10/28/17 18:28 Urine Ketones Negative mg/dL (NEGATIVE) 10/28/17 18:28 Urine Blood Negative (NEGATIVE) 10/28/17 18:28 Urine Nitrate Negative (NEGATIVE) 10/28/17 18:28 Urine Bilirubin Negative (NEGATIVE) 10/28/17 18:28 Urine Urobilinogen 0.2-1.0 mg/dL (0.2-1.0) 10/28/17 18:28 Ur Leukocyte Esterase Mod Babita/uL (Negative) 10/28/17 18:28 Urine RBC (Auto) 3 /hpf (0-3) 10/28/17 18:28 Urine Microscopic WBC 21 /hpf (0-5) H 10/28/17 18:28 Ur Squamous Epith Cells < 1 /hpf (0-5) 10/28/17 18:28 Urine Bacteria Occ (<OCC) H 10/28/17 18:28 Hyaline Casts 3-5 /hpf (0-2) H 10/28/17 18:28 Urine Yeast (Budding) Rare /hpf (NEGATIVE) H 10/28/17 18:28 Valproic Acid < 10.0 ug/mL (50.0-100.0) L 10/29/17 20:30 Influenza Typ A,B (EIA) Negative for flu a/b (NEGATIVE) 10/28/17 18:28 Blood Type O POSITIVE 10/28/17 18:28 Antibody Screen Negative 10/28/17 18:28 BBK History Checked No verified bt 10/28/17 18:28 - Hospital Course Hospital Course: 77 y/o F with Seizure disorder, chronic hip wound admitted for seizure episode, valproic acid level low on admission, patient found to have UTI, treated with IV abx during hosp stay, improved, evaluated by specialist and cleared to be DC to [facility] to c/w PT further care. Discharge Exam - Head Exam Head Exam: NORMAL INSPECTION - Eye Exam Eye Exam: PERRL - ENT Exam ENT Exam: Mucous Membranes Moist - Respiratory Exam Respiratory Exam: NORMAL BREATHING PATTERN, UNREMARKABLE - Cardiovascular Exam Cardiovascular Exam: +S1, +S2. absent: Gallop - GI/Abdominal Exam GI & Abdominal Exam: Normal Bowel Sounds, Unremarkable - Extremities Exam Additional comments: Hip chronic ulcer - Neurological Exam Neurological exam: Alert - Skin Skin Exam: Warm Additional comments: Ulcer hip Discharge Plan - Discharge Medications Prescriptions: Ciprofloxacin HCl [Cipro] 500 mg PO Q12 #14 tab - Follow Up Plan Condition: STABLE Disposition: REHAB FACILITY/REHAB UNIT Instructions: Urinary Tract Infection in Women (DC), Dysuria (GEN), Urinary Tract Infection, Adult (DC), Seizures, Adult (DC)
[2017-10-31 16:05] VITALS: BP 111/72; PULSE 104; RESP 18; TEMP 97.3; O2SAT 98
== END 2017-10-31 17:04 | DRG 101 ==
LOC: H.ER 17:25 → UNDOADMIN 18:37 → H.ERHOLD 18:37 → INTOOBSV 20:07 → H.ERHOLD 20:07 → H.TEL 10-29 15:23 → OBSVTOIN 10-29 21:19
PROVIDERS: ADMIT Family Medicine; ATTEND Family Medicine
DX: G40.802 Other epilepsy, not intractable, without status epilepticus (principal); L89.210 Pressure ulcer of right hip, unstageable; N39.0 Urinary tract infection, site not specified; I95.9 Hypotension, unspecified; B96.89 Other specified bacterial agents as the cause of diseases classified elsewhere; F03.90 Unspecified dementia, unspecified severity, without behavioral disturbance, psychotic disturbance, mood disturbance, and anxiety; E11.9 Type 2 diabetes mellitus without complications; K21.9 Gastro-esophageal reflux disease without esophagitis; M19.90 Unspecified osteoarthritis, unspecified site; Z87.440 Personal history of urinary (tract) infections

== ENCOUNTER 2018-12-19 17:11 | Observation (INO) | payer MEDICARE ==
[2018-12-19 17:11] VITALS: BMI 24.9
--- NOTE | 2018-12-19 18:45 | ED PDOC ---
Syncope/Near Syncope/Dizziness Time Seen by Provider: 12/19/18 17:47 Chief Complaint (Nursing): Altered Mental Status Chief Complaint (Provider): Syncope History Per: EMS History/Exam Limitations: clinical condition (dementia) Onset/Duration Of Symptoms: Mins (just prior to arrival) Additional Complaint(s): 78 year old female presents to the ED via EMS from [facility] for evaluation s/p a syncopal event while sitting in a chair prior to arrival. Patient did not fall to the ground, and it lasted about 3-4 minutes. Of note, patient is demented at baseline, placing limitations on history and ROS. All information was obtained from EMS. PMD: Nader Verma Past Medical History Reviewed: Unable To Obtain Vital Signs: Last Vital Signs Temp 97.9 F 12/19/18 17:18 Pulse 81 12/19/18 17:18 Resp 19 12/19/18 17:18 BP 149/99 H 12/19/18 17:18 Pulse Ox 97 12/19/18 17:18 - Medical History PMH: Arthritis Denies: Chronic Kidney Disease - Family History Family History: States: Unknown Family Hx - Immunization History Hx Tetanus Toxoid Vaccination: (cannot remember) - Home Medications Home Medications: Ambulatory Orders Medication Instructions Recorded Acetaminophen [Tylenol 325mg tab] 650 mg PO Q4 PRN 10/28/17 Ascorbic Acid [Vitamin C 250 mg 250 mg PO BID 10/28/17 Tab] Magnesium Hydroxide [Milk Of 30 ml PO DAILY PRN 10/28/17 Magnesia] Multivitamin [Multivitamins] 1 tab PO DAILY 10/28/17 Acetaminophen [Tylenol 325mg tab] 650 mg PO Q4 PRN 12/19/18 Aspirin [Aspirin Chewable] 81 mg PO DAILY 12/19/18 Diclofenac Sodium [Voltaren] 2 gm TD Q6 PRN 12/19/18 Divalproex [Depakote DR TAB] 250 mg PO HS 12/19/18 Mag Hydrox/Aluminum Hyd/Simeth 30 ml PO Q4 PRN 12/19/18 [Maalox Advanced Suspension] Vitamin A & D [Vitamin A & D Oint 1 appl TOP QSHIFT 12/19/18 UD Foilpak] - Allergies Allergies/Adverse Reactions: Allergies Allergy/AdvReac Type Severity Reaction Status Date / Time No Known Allergies Allergy Verified 10/29/17 08:50 Review of Systems Review Of Systems: ROS cannot be obtained secondary to pt's inabilty to answer questions. Physical Exam - Reviewed Nursing Documentation Reviewed: Yes Vital Signs Reviewed: Yes - Physical Exam Appears: Positive for: No Acute Distress Head Exam: Positive for: ATRAUMATIC, NORMAL INSPECTION, NORMOCEPHALIC Skin: Positive for: Normal Color, Warm. Negative for: Rash Eye Exam: Positive for: Normal appearance Neck: Positive for: Normal, Painless ROM, Supple Cardiovascular/Chest: Positive for: Regular Rate, Rhythm Respiratory: Positive for: Normal Breath Sounds. Negative for: Respiratory Distress Gastrointestinal/Abdominal: Positive for: Normal Exam, Soft. Negative for: Tenderness (no discomfort to palpation noted) Extremity: Positive for: Other (LLE rotated inwards; bilateral upper extremities normal with full ROM ). Negative for: Normal ROM (decreased ROM at left hip) Neurological/Psych: Positive for: Awake, Alert, Oriented (x0) - ECG O2 Sat by Pulse Oximetry: 97 (RA) Pulse Ox Interpretation: Normal Medical Decision Making Medical Decision Making: Time: 1800 Initial Impression: syncope Initial Plan: --CT head without contrast --EKG --CMP --Trop I --CBC with differential --PTT / PT --CXR --Accucheck --Urinalysis --Reevaluate Scribe Attestation: Documented by Divya Eduardo, acting as a scribe for Rosanna Betancourt MD. Provider Scribe Attestation: All medical record entries made by the Scribe were at my direction and personally dictated by me. I have reviewed the chart and agree that the record accurately reflects my personal performance of the history, physical exam, medical decision making, and the department course for this patient. I have also personally directed, reviewed, and agree with the discharge instructions and disposition. Disposition - Disposition Referrals: Nader Verma MD [Primary Care Provider] -
[2018-12-19 18:47] LABS: BASO % 0.4 % (0.0-2.0); EOS # 0.1 K/uL (0.0-0.7); EOS % 0.8 % (0.0-4.0); HEMOGLOBIN 14.2 g/dL (12.0-16.0); LYMPH # 1.1 K/uL (1.0-4.3); LYMPH % 11.3 % (20.0-40.0); MEAN CELL VOLUME 93.3 fl (81.0-99.0); MEAN CORPUSCULAR HEMOGLOBIN 31.9 pg (27.0-31.0); MEAN CORPUSCULAR HGB CONC 34.2 g/dL (33.0-37.0); MEAN PLATELET VOLUME 8.6 fl (7.2-11.7); MONO # 0.5 K/uL (0.0-0.8); MONO % 5.5 % (0.0-10.0); NEUT # 7.6 K/uL (1.8-7.0); NRBC % 0.1 % (0.0-0.0); RBC 4.45 Mil/uL (3.80-5.20); RED CELL DISTRIBUTION WIDTH 13.4 % (11.5-14.5); WHITE BLOOD COUNT 9.3 K/uL (4.8-10.8)
[2018-12-19 18:59] LABS: ALB/GLOB RATIO 1.4 (1.0-2.1); ALBUMIN 4.3 g/dL (3.5-5.0); ALT/SGPT 35 U/L (9-52); AST/SGOT 25 U/L (14-36); BLOOD UREA NITROGEN 21 mg/dl (7-17); CALCIUM 10.5 mg/dL (8.4-10.2); GFR NON-AFRICAN AMERICAN > 60; PROTHROMBIN TIME 11.3 Seconds (9.8-13.1)
--- NOTE | 2018-12-19 18:59 | RAD ---
Date of service: 12/19/2018 HISTORY: Syncope COMPARISON: 10/30/2017. FINDINGS: LUNGS: The lungs are well inflated and clear. There is mild pulmonary venous congestion. PLEURA: No pleural effusions or pneumothorax. CARDIOVASCULAR: The heart is normal in size. There unfolding of the aorta. No aortic atherosclerotic calcifications present. OSSEOUS STRUCTURES: Within normal limits for the patient's age. VISUALIZED UPPER ABDOMEN: Normal. OTHER FINDINGS: None IMPRESSION: No active pulmonary disease.
[2018-12-19 19:02] LABS: PARTIAL THROMBOPLASTIN TIME 33.4 Seconds (25.6-37.1)
[2018-12-19] MEDS ORDERED: Alum-Mag Hydrox-Simethicone Susp (30 mL) PO PRN (22:35)
[2018-12-19] MEDS ORDERED: Magnesium Hydroxide Susp 30 ml UD PO PRN (22:35)
[2018-12-19] MEDS ORDERED: Vitamins A & D Oint UD Foilpak TOP SCH (22:45)
--- NOTE | 2018-12-20 03:12 | ED PDOC ---
- Laboratory Results Result Diagrams: 12/19/18 18:30 12/19/18 18:30 Lab Results: PT 11.3 Seconds (9.8-13.1) 12/19/18 18:30 INR 1.0 12/19/18 18:30 APTT 33.4 Seconds (25.6-37.1) 12/19/18 18:30 Troponin I < 0.0120 ng/mL (0.00-0.120) 12/19/18 18:30 Total Bilirubin 0.4 mg/dl (0.2-1.3) 12/19/18 18:30 AST 25 U/L (14-36) 12/19/18 18:30 ALT 35 U/L (9-52) 12/19/18 18:30 Alkaline Phosphatase 86 U/L (38-126) 12/19/18 18:30 Total Protein 7.4 G/DL (6.3-8.2) 12/19/18 18:30 Albumin 4.3 g/dL (3.5-5.0) 12/19/18 18:30 Globulin 3.1 gm/dL (2.2-3.9) 12/19/18 18:30 Albumin/Globulin Ratio 1.4 (1.0-2.1) 12/19/18 18:30 - ECG O2 Sat by Pulse Oximetry: 98 Pulse Ox Interpretation: Normal Medical Decision Making Medical Decision Makin PAtient was endorsed me to by Dr. Betancorut pending labs/CTs 1999 Patient re-evaluated at bedside, states she has no complaints but is very obviously demented and cannot provide history. PAtient will be admitted for syncope with cardiac monitoring and further testing. Case discussed with CORRINA Otoole. Disposition - Clinical Impression Clinical Impression: Syncope - POA Present On Arrival: None - Disposition Disposition: Hospitalized as Observation Patient Disposition Time: 21:00 Condition: FAIR
[2018-12-20] MEDS: Multivitamin With Minerals Tab PO SCH (08:53)
[2018-12-20] MEDS ORDERED: Patient's Own Med (Multivitamin [Multivitamins] 1 TAB) PO SCH (09:00)
--- NOTE | 2018-12-20 09:23 | CT ---
Date of service: 12/19/2018 PROCEDURE: CT HEAD WITHOUT CONTRAST. HISTORY: Syncope COMPARISON: None available. TECHNIQUE: Axial computed tomography images were obtained through the head/brain without intravenous contrast. Radiation dose: Total exam DLP = 905.84 mGy-cm. This CT exam was performed using one or more of the following dose reduction techniques: Automated exposure control, adjustment of the mA and/or kV according to patient size, and/or use of iterative reconstruction technique. FINDINGS: HEMORRHAGE: No intracranial hemorrhage. BRAIN: No mass effect or edema. There is mild diffuse age-appropriate cerebral atrophy. There is moderate patchy and confluent periventricular and deep/subcortical white matter lucency consistent with microvascular white matter ischemic change. There is no evidence of acute infarct. VENTRICLES: Unremarkable. No hydrocephalus. CALVARIUM: Unremarkable. PARANASAL SINUSES: Small amount of fluid or mucoperiosteal thickening in the right sphenoid sinus. Likely chronic sinusitis. The remaining paranasal sinuses are unremarkable. MASTOID AIR CELLS: Unremarkable as visualized. No inflammatory changes. OTHER FINDINGS: None. IMPRESSION: No intracranial mass, hemorrhage or evidence of acute infarct. 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 Age related atrophy and chronic white matter ischemic change. The preliminary findings for this examination were reported by [facility] at 7:26 p.m. on 12/19/2018. There is concurrence of this report with the preliminary findings.
[2018-12-20] MEDS: Proshield Plus GEL TOP SCH (16:33)
--- NOTE | 2018-12-20 18:40 | CP.PCM.HP ---
History of Present Illness - History of Present Illness History of Present Illness: 78 y/o F with Seizure disorder and dementia presented to ED after syncopal episode on chair which was reported to last 3-4 minutes. Patient did not fall. Patient was admitted for further evaluation and management of syncope. history and ROS is limited due to dementia though patient denies complaints at this time. Meds: as per chart Allergies: as per chart Present on Admission - Present on Admission Any Indicators Present on Admission: No Review of Systems - Review of Systems Systems not reviewed;Unavailable: Dementia Past Patient History - Infectious Disease Hx of Infectious Diseases: None - Past Medical History & Family History Past Medical History?: Yes - Past Social History Smoking Status: Unknown If Ever Smoked - CARDIAC Hx Cardiac Disorders: No - PULMONARY Hx Respiratory Disorders: No - NEUROLOGICAL Hx Neurological Disorder: Yes - HEENT Hx HEENT Problems: No - RENAL Hx Chronic Kidney Disease: No - ENDOCRINE/METABOLIC Hx Diabetes Mellitus Type 2: Yes (pt thinks she may be) - HEMATOLOGICAL/ONCOLOGICAL Hx Blood Disorders: No - INTEGUMENTARY Hx Dermatological Problems: No - MUSCULOSKELETAL/RHEUMATOLOGICAL Hx Falls: No (unknown) - GASTROINTESTINAL Hx Gastroesophageal Reflux: Yes - GENITOURINARY/GYNECOLOGICAL Hx Urinary Tract Infection: Yes - PSYCHIATRIC Hx Substance Use: No - SURGICAL HISTORY Hx Surgeries: No (unobtainable, pt lethargic) - ANESTHESIA Hx Anesthesia: No Hx Anesthesia Reactions: No Hx Malignant Hyperthermia: No Meds Allergies/Adverse Reactions: Allergies Allergy/AdvReac Type Severity Reaction Status Date / Time No Known Allergies Allergy Verified 10/29/17 08:50 Physical Exam - Constitutional Appears: Non-toxic, No Acute Distress - Head Exam Head Exam: NORMAL INSPECTION - Neck Exam Neck exam: Positive for: Normal Inspection - Respiratory Exam Respiratory Exam: NORMAL BREATHING PATTERN - Cardiovascular Exam Cardiovascular Exam: +S1, +S2 - GI/Abdominal Exam GI & Abdominal Exam: Soft - Neurological Exam Neurological exam: Alert - Psychiatric Exam Psychiatric exam: Normal Affect, Normal Mood - Skin Skin Exam: Normal Color, Warm Results - Vital Signs Recent Vital Signs: Last Vital Signs Temp 97.6 F 12/20/18 18:15 Pulse 85 12/20/18 18:15 Resp 20 12/20/18 18:15 BP 120/76 12/20/18 18:15 Pulse Ox 96 12/20/18 18:15 - Labs Result Diagrams: 12/19/18 18:30 12/19/18 18:30 Labs: Laboratory Results - last 24 hr 12/19/18 12/19/18 12/19/18 18:30 18:30 18:30 WBC 9.3 RBC 4.45 Hgb 14.2 D Hct 41.5 MCV 93.3 MCH 31.9 H MCHC 34.2 RDW 13.4 Plt Count 329 MPV 8.6 Neut % (Auto) 82.0 H Lymph % (Auto) 11.3 L [place] % (Auto) 5.5 Eos % (Auto) 0.8 Baso % (Auto) 0.4 Neut # (Auto) 7.6 H Lymph # (Auto) 1.1 [place] # (Auto) 0.5 Eos # (Auto) 0.1 Baso # (Auto) 0.0 PT 11.3 INR 1.0 APTT 33.4 Sodium 138 Potassium 4.5 Chloride 102 Carbon Dioxide 28 Anion Gap 13 BUN 21 H Creatinine 0.5 L Est GFR ( Amer) > 60 Est GFR (Non-Af Amer) > 60 Random Glucose 122 H Calcium 10.5 H Total Bilirubin 0.4 AST 25 ALT 35 Alkaline Phosphatase 86 Troponin I < 0.0120 Total Protein 7.4 Albumin 4.3 Globulin 3.1 Albumin/Globulin Ratio 1.4 Valproic Acid 12/19/18 20:17 WBC RBC Hgb Hct MCV MCH MCHC RDW Plt Count MPV Neut % (Auto) Lymph % (Auto) [place] % (Auto) Eos % (Auto) Baso % (Auto) Neut # (Auto) Lymph # (Auto) [place] # (Auto) Eos # (Auto) Baso # (Auto) PT INR APTT Sodium Potassium Chloride Carbon Dioxide Anion Gap BUN Creatinine Est GFR ( Amer) Est GFR (Non-Af Amer) Random Glucose Calcium Total Bilirubin AST ALT Alkaline Phosphatase Troponin I Total Protein Albumin Globulin Albumin/Globulin Ratio Valproic Acid 10.3 L Assessment & Plan (1) Syncope Status: Acute - Assessment and Plan (Free Text) Plan: available diagnostic data reviewed monitor labs monitor vitals neurology consulted appreciate recommendations rest of plan as ordered
[2018-12-20] MEDS ORDERED: Divalproex 250 mg DR(BID formulation) PO SCH (22:00)
--- NOTE | 2018-12-20 23:10 | CARD ---
APPROVED REPORT Date of service: 12/19/2018 EKG Measurement Heart [id number] <Conclusion> Normal sinus rhythm Low voltage QRS Nonspecific T wave abnormality Abnormal ECG
[2018-12-21] MEDS: Proshield Plus GEL TOP SCH ×2 (00:54→09:37)
[2018-12-21] MEDS: Multivitamin With Minerals Tab PO SCH (09:37)
--- NOTE | 2018-12-21 11:45 | CP.PCM.CON ---
History of Present Illness - History of Present Illness History of Present Illness: Neurology consult dictated. Patient with dementia and syncopal spell, who has a history of epilepsy, and is now stable at 500 mg bid depakote. Thank you Dr. Sarah Neurology Past Patient History - Infectious Disease Hx of Infectious Diseases: None - Past Medical History & Family History Past Medical History?: Yes - Past Social History Smoking Status: Unknown If Ever Smoked - CARDIAC Hx Cardiac Disorders: No - PULMONARY Hx Respiratory Disorders: No - NEUROLOGICAL Hx Neurological Disorder: Yes - HEENT Hx HEENT Problems: No - RENAL Hx Chronic Kidney Disease: No - ENDOCRINE/METABOLIC Hx Diabetes Mellitus Type 2: Yes (pt thinks she may be) - HEMATOLOGICAL/ONCOLOGICAL Hx Blood Disorders: No - INTEGUMENTARY Hx Dermatological Problems: No - MUSCULOSKELETAL/RHEUMATOLOGICAL Hx Falls: No (unknown) - GASTROINTESTINAL Hx Gastroesophageal Reflux: Yes - GENITOURINARY/GYNECOLOGICAL Hx Urinary Tract Infection: Yes - PSYCHIATRIC Hx Substance Use: No - SURGICAL HISTORY Hx Surgeries: No (unobtainable, pt lethargic) - ANESTHESIA Hx Anesthesia: No Hx Anesthesia Reactions: No Hx Malignant Hyperthermia: No Meds Home Medications: Home Medication List Medication Instructions Recorded Confirmed Type Divalproex [Depakote (*BID*)] 250 mg PO BID tcp 12/21/18 Rx Allergies/Adverse Reactions: Allergies Allergy/AdvReac Type Severity Reaction Status Date / Time No Known Allergies Allergy Verified 10/29/17 08:50 - Medications Medications: Current Medications Acetaminophen (Tylenol 325mg Tab) 650 mg PO Q4 PRN PRN Reason: Pain, Mild (1-3) Al Hydrox/Mg Hydrox/Simethicone (Maalox Plus 30 Ml) 30 ml PO Q4 PRN PRN Reason: Indigestion / Heartburn Ascorbic Acid (Vitamin C 250 Mg Tab) 250 mg PO BID [facility] Last Admin: 12/21/18 09:38 Dose: 250 mg Aspirin (Aspirin Chewable) 81 mg PO DAILY [facility] Last Admin: 12/21/18 09:37 Dose: 81 mg Dimethicone (Proshield Plus Skin Protectant) 1 applic TOP Q8 [facility] Last Admin: 12/21/18 09:37 Dose: 1 applic Divalproex Sodium (Depakote (*Bid*)) 250 mg PO HS [facility] Last Admin: 12/20/18 21:57 Dose: 250 mg Magnesium Hydroxide (Milk Of Magnesia) 30 ml PO DAILY PRN PRN Reason: Constipation Multivitamins/Minerals (Therapeutic-M Tab) 1 tab PO DAILY [facility] Last Admin: 12/21/18 09:37 Dose: 1 tab Vitamin A (Vitamin A & D Oint Ud Foilpak) 1 ea TOP QSHIFT [facility] Results - Vital Signs Recent Vital Signs: Last Vital Signs Temp 97.7 F 12/21/18 08:16 Pulse 82 12/21/18 08:16 Resp 18 12/21/18 08:16 BP 121/73 12/21/18 08:16 Pulse Ox 96 12/21/18 08:16 - Labs Result Diagrams: 12/19/18 18:30 12/19/18 18:30
[2018-12-21] MEDS ORDERED: Valproate 1,000 MG in Sodium Chloride 0.9% 100 ML IVPB ONE (12:12)
--- NOTE | 2018-12-21 12:18 | CP.PCM.PN ---
Subjective - Date & Time of Evaluation Date of Evaluation: 12/21/18 Time of Evaluation: 12:14 - Subjective Subjective: Neuro Follow-Up Note: Ms. Yañez was evaluated this morning at bedside. She remains confused, though is calm and cooperative for more of the interview/exam. She is feeling well today and does not offer any complaints. Denies h/a, dizziness, visual changes, chest pain, palpitations, sob, cough, abd pain, n/v/d, paresthesias, fever/ chills. Objective - Vital Signs/Intake and Output Vital Signs (last 24 hours): Temp Pulse Resp BP Pulse Ox 97.9 F 80 18 95/61 L 96 12/21/18 12:07 12/21/18 12:07 12/21/18 12:07 12/21/18 12:07 12/21/18 12:07 - Medications Medications: Current Medications Acetaminophen (Tylenol 325mg Tab) 650 mg PO Q4 PRN PRN Reason: Pain, Mild (1-3) Al Hydrox/Mg Hydrox/Simethicone (Maalox Plus 30 Ml) 30 ml PO Q4 PRN PRN Reason: Indigestion / Heartburn Ascorbic Acid (Vitamin C 250 Mg Tab) 250 mg PO BID [facility] Last Admin: 12/21/18 09:38 Dose: 250 mg Aspirin (Aspirin Chewable) 81 mg PO DAILY [facility] Last Admin: 12/21/18 09:37 Dose: 81 mg Dimethicone (Proshield Plus Skin Protectant) 1 applic TOP Q8 [facility] Last Admin: 12/21/18 09:37 Dose: 1 applic Valproate Sodium 1,000 mg/ (Sodium Chloride) 110 mls @ 100 mls/hr IVPB ONCE ONE Stop: 12/21/18 13:17 Magnesium Hydroxide (Milk Of Magnesia) 30 ml PO DAILY PRN PRN Reason: Constipation Multivitamins/Minerals (Therapeutic-M Tab) 1 tab PO DAILY [facility] Last Admin: 12/21/18 09:37 Dose: 1 tab Vitamin A (Vitamin A & D Oint Ud Foilpak) 1 ea TOP QSHIFT [facility] - Labs Labs: 12/19/18 18:30 12/19/18 18:30 PT 11.3 Seconds (9.8-13.1) 12/19/18 18:30 INR 1.0 12/19/18 18:30 APTT 33.4 Seconds (25.6-37.1) 12/19/18 18:30 - Constitutional Appears: Non-toxic, No Acute Distress, Confused - Head Exam Head Exam: ATRAUMATIC, NORMAL INSPECTION, NORMOCEPHALIC - Eye Exam Eye Exam: EOMI, Normal appearance, PERRL Pupil Exam: NORMAL ACCOMODATION, PERRL - ENT Exam ENT Exam: Mucous Membranes Moist - Neck Exam Neck Exam: Full ROM, Normal Inspection - Respiratory Exam Respiratory Exam: NORMAL BREATHING PATTERN - Extremities Exam Extremities Exam: absent: Calf Tenderness, Full ROM, Pedal Edema Additional comments: Able to move extremities, though, has weakness to BLE likely from deconditioning - Neurological Exam Neurological Exam: Altered, Awake, CN II-XII Intact, Reflexes Normal. absent: Oriented x3 Neuro motor strength exam: Left Upper Extremity: 4, Right Upper Extremity: 4, Left Lower Extremity: 3 (distal 2-3/5), Right Lower Extremity: 3 (distal 2-3/5) Additional comments: Awake, alert, confused (baseline dementia) Speech clear Has more weakness to BLE compared to BUE 2/2 deconditioning. No sensory deficits. No tremors or abnormal movements. Gait not assessed; PT screen reviewed. - Psychiatric Exam Additional comments: confused, calm, cooperative; baseline dementia - Skin Skin Exam: Normal Color Assessment and Plan - Assessment and Plan (Free Text) Assessment: A/P: Mrs. Yañez is an 78 y/o female who was admitted for suspected syncopal episode in which she became unresponsive for 3-4 minutes while sitting in a chair. Li chrissy 2/2 seizure; has h/o seizures and dementia. Pt's Valproic Acid level noted to be very low (10.3 on 12/19/18); unknown if she is receiving it as directed at the [facility]. Unknown who is managing her seizures as outpatient. -Load Valproate 1,000 mg IV x1 dose now, followed by Valproic Acid 250 mg PO BID--continue this at the [facility]. -EEG x1 hour completed---normal. -Continue PT for strengthening and conditioning. -Have pt follow up with neuro as outpatient. If she cannot be transported to an office for f/u, have her seen at the [facility] by neuro for seizure management. Reconsult prn. Thank you for this consultation. Naomi Akbar, DNP, TELECOMMUNICATIONS SPECIALIST d/w Dr. Sarah
--- NOTE | 2018-12-21 13:38 | PCM.EEG ---
Electroencephalogram Report - Electroencephalogram Report Procedure Date: 12/21/18 Condition of Recording: Awake Interpretation: This is a 16-channel EEG, 1-channel EKG performed with the patient awake. Hyperventilation and photic stimulation were performed as activating procedures. A moderate amount of muscle and movement artifact activity was seen throughout the recording. With the patient awake, alpha activity at 8 cps was seen in the posterior regions. Alpha activity was well modulated by eye opening and eye closing. Alpha amplitude ranged between 30-70 mcv. Beta activity was seen in the frontal central region ranging between 18-25 Hz and amplitude ranged between 10-30 mcv. Hyperventilation was performed and there was generalized slowing noted. Photic stimulation was performed and was unremarkable. There were no significant asymmetries noted during wakefulness. There was no epileptiform activity seen. Impression: IMPRESSION: A normal EEG. Conclusion: Normal EEG (Awake, Drowsy, and Asleep)
[2018-12-21 16:23] VITALS: BP 99/63; PULSE 82; RESP 16; TEMP 98; O2SAT 95
[2018-12-22] MEDS ORDERED: Divalproex 250 mg DR(BID formulation) PO SCH (09:00)
--- NOTE | 2018-12-24 08:33 | CON ---
DATE: 12/21/2018 NEUROLOGY CONSULTATION Neurology consultation called by . HISTORY OF PRESENT ILLNESS: Ms. Yañez is an 78-year-old woman who came in on 12/19/2018 who is a resident of [facility] for evaluation of syncopal event that happened when she was in wheelchair prior to arrival. The patient did fall to the ground, up to 3 to 4 minutes. Of note, the patient has severe dementia and initial neurological exam was normal. Neurology consult was called. The patient has a history of epilepsy and she is on Depakote 500 mg twice a day. EEG was done during last admission and it was normal. Labs were normal on admission. CBC was normal. Chemistry 0.5 BUN and creatinine and valproic acid level of 10.3. PHYSICAL EXAMINATION: NEUROLOGIC: On exam, the patient is alert, awake, and oriented . She does not follow commands. The patient moves all extremities. Sensory exam is not accurate. EOMI. PERRL. Gait is not tested. IMPRESSION AND PLAN: This is an 78-year-old woman with severe dementia who had a prior syncopal spell. We will load her with Depakote and sent her back to care home. She is actually at this time. I did not feel that the syncopal event was neurological in etiology. Thank you for this interesting consultation. Danielle Sarah MD
== END 2018-12-21 16:51 ==
LOC: H.ER 17:11 → SUPCPDRO 17:11 → H.ERHOLD 19:55 → H.ICU/CCU 23:41 → H.TEL 12-20 17:42
PROVIDERS: ADMIT Family Medicine; ATTEND Family Medicine
DX: G40.909 Epilepsy, unspecified, not intractable, without status epilepticus (principal); K21.9 Gastro-esophageal reflux disease without esophagitis; Z79.82 Long term (current) use of aspirin; Z87.440 Personal history of urinary (tract) infections; M19.90 Unspecified osteoarthritis, unspecified site; R55 Syncope and collapse; E11.9 Type 2 diabetes mellitus without complications; F03.90 Unspecified dementia, unspecified severity, without behavioral disturbance, psychotic disturbance, mood disturbance, and anxiety
CPT/HCPCS: 36415; 70450; 71045; 80053; 80164; 82948; 84484; 85025; 85610; 85730; 87081; 93005; 99285; G0378